=== PATIENT | male | born 1945 | race Caucasian/White ===

== ENCOUNTER 2016-06-02 12:43 | Emergency (ER) | payer MEDICARE, BC ==
--- NOTE | 2016-06-02 13:09 | EDM.PDOC ---
ED HPI RENAL/ - General Chief Complaint: Genitourinary Problem Stated Complaint: BLOOD IN URINE Time Seen by Provider: 06/02/16 13:05 Source of Information: Reports: Patient History Limitations: Reports: No limitations - History of Present Illness INITIAL COMMENTS - FREE TEXT/NARRATIVE: History of present illness: [70-year-old male presenting today with complaints of blood in his urine, patient has been on urostomy. Patient was recently seen for acute exacerbation of his congestive heart failure denies problems with that at this time.] Review of systems: As per history of present illness and below otherwise all systems reviewed and negative. Past medical history: As per history of present illness and as reviewed below otherwise noncontributory. Surgical history: As per history of present illness and as reviewed below otherwise noncontributory. Social history: No reported history of drug or alcohol abuse. Family history: As per history of present illness and as reviewed below otherwise noncontributory. Physical exam: HEENT: Atraumatic, normocephalic, pupils reactive, negative for conjunctival pallor or scleral icterus, mucous membranes moist, throat clear, neck supple, nontender, trachea midline. Lungs: Clear to auscultation, breath sounds equal bilaterally, chest nontender. Heart: S1S2, regular, negative for clicks, rubs, or JVD. Abdomen: Soft, nondistended, nontender. Negative for masses or hepatosplenomegaly. Negative for costovertebral tenderness. Pelvis: Stable nontender. Genitourinary: Deferred. Patient has any known urostomy. Rectal: Deferred. Extremities: Atraumatic, negative for cords or calf pain. Neurovascular unremarkable. Neuro: Awake, alert, oriented. Cranial nerves II through XII unremarkable. Cerebellum unremarkable. Motor and sensory unremarkable throughout. Exam nonfocal. Patient with history of known urostomy presenting with obvious hematuria Diagnostics: [UA, CBC, CMP, BNP] Therapeutics: [] Impression: [UTI] Plan: [] Definitive disposition and diagnosis as appropriate pending reevaluation and review of above. - Related Data Allergies/ADRs: Allergies Allergy/AdvReac Type Severity Reaction Status Date / Time lisinopril Allergy Cough Verified 06/02/16 13:05 green hendrix peppers Allergy Vomiting Uncoded 06/02/16 13:05 Home Meds: Home Meds Allopurinol [Zyloprim] 100 mg PO BID 02/15/16 [History] Bumetanide 2 mg PO QID 02/15/16 [History] Calcitriol [Rocaltrol] 0.25 mcg PO DAILY 02/15/16 [History] Carvedilol 50 mg PO BID 02/15/16 [History] Cyanocobalamin (Vitamin B-12) [B-12] 1,000 mcg PO DAILY 02/15/16 [History] Diltiazem [Cardizem CD] 120 mg PO BEDTIME 02/15/16 [History] Ferrous Sulfate 325 mg PO BID 02/15/16 [History] Insulin Aspart [Novolog Flexpen] 15 unit SQ ACLUNCH 02/15/16 [History] Insulin Aspart [Novolog Flexpen] 20 unit SQ ACDINNER 02/15/16 [History] Insulin Glarg,Human.Rec.Analog [Lantus Solostar] 40 unit SUBCUT BEDTIME [History] [place]-3/DHA/Epa/Fish Oil [[place]-3 Fish Oil 1,000 MG Sfgl] 1,000 mg PO ASDIRECTED 02/15/16 [History] Simvastatin [Zocor] 20 mg PO BEDTIME 02/15/16 [History] Insulin Aspart [Novolog Flexpen] 18 units SUBCUT ACBREAKFAST 05/26/16 [History] Potassium Chloride [Klor-Con M20] 10 meq PO DAILY 05/26/16 [History] Warfarin [Coumadin] 2 mg PO MOWEFR@1400 05/26/16 [History] Warfarin [Coumadin] 3 mg PO SUTUTHSA@1400 05/26/16 [History] Nitrofurantoin Monohyd/M-Cryst [Macrobid 100 mg Capsule] 100 mg PO BID #20 capsule 06/02/16 [Rx] Omeprazole Magnesium [Prilosec Otc] 20 mg PO ACBREAKFAST 06/02/16 [History] Past Medical History - Past Health History Medical/Surgical History: Denies Medical/Surgical History HEENT History: Reports: Other (see below) Other HEENT History: corrective glasses Cardiovascular History: Reports: Afib, Heart Failure, High cholesterol, Hypertension Respiratory History: Reports: None Gastrointestinal History: Reports: Hiatal hernia Genitourinary History: Reports: Urostomy Musculoskeletal History: Reports: Arthritis, Gout Neurological History: Reports: CVA. Denies: Alzheimers disease Psychiatric History: Reports: None Endocrine/Metabolic History: Reports: Diabetes, type II, Obesity/BMI 30+ Oncologic (Cancer) History: Reports: Bladder Dermatologic History: Reports: Cellulitis - Infectious Disease History Infectious Disease History: Reports: Chicken pox, Measles, Mumps, Shingles - Past Surgical History Cardiovascular Surgical History: Reports: None GI Surgical History: Reports: None Male Surgical History: Reports: Other (see below) Other Male Surgeries/Procedures: bladder removal/ urostomy- 2011 Endocrine Surgical History: Reports: None Musculoskeletal Surgical History: Reports: None Social & Family History - Family History Family Medical History: Noncontributory HEENT: Reports: Cataract Cardiac: Reports: High cholesterol, Hypertension Musculoskeletal: Reports: Arthritis Psychiatric: Reports: Depression Oncologic: Reports: Prostate - Tobacco Use Smoking Status *Q: Former Smoker Years of Tobacco use: 15 Packs/Tins Daily: 1.5 Used Tobacco, but Quit: No Month Tobacco Last Used: 1975 Second Hand Smoke Exposure: No - Caffeine Use Caffeine Use: Reports: Coffee, Soda Caffeine Use Comment: soda- occassionally - Alcohol Use Days Per Week of Alcohol Use: 6 Number of Drinks Per Day: 1 Total Drinks Per Week: 6 - Recreational Drug Use Recreational Drug Use: No ED ROS GENERAL - Review of Systems Review Of Systems: See Below (See history of present illness) ED EXAM, RENAL/ - Physical Exam Exam: See Below (History of present illness) Course - Vital Signs Last Recorded V/S: Last Vital Signs Temp 36.2 C 06/02/16 13:05 Pulse 88 06/02/16 13:05 Resp 26 H 06/02/16 13:05 BP 131/58 L 06/02/16 13:05 Pulse Ox 92 L 06/02/16 13:05 - Orders/Labs/Meds Labs: Laboratory Tests 06/02/16 06/02/16 06/02/16 Range/Units 13:31 13:31 13:31 WBC 7.14 (4.0-11.0) K/uL RBC 3.75 L (4.50-5.90) M/uL Hgb 12.1 L (13.0-17.0) g/dL Hct 37.2 L (38.0-50.0) % MCV 99.2 H (80.0-98.0) fL MCH 32.3 H (27.0-32.0) pg MCHC 32.5 (31.0-37.0) g/dL RDW Std Deviation 62.0 (28.0-62.0) fl RDW Coeff of William 17 H (11.0-15.0) % Plt Count 91 L (150-400) K/uL MPV 12.50 H (7.40-12.00) fL Neut % (Auto) 83.9 H (48.0-80.0) % Lymph % (Auto) 6.0 L (16.0-40.0) % [place] % (Auto) 7.6 (0.0-15.0) % Eos % (Auto) 2.1 (0.0-7.0) % Baso % (Auto) 0.4 (0.0-1.5) % Neut # 6.0 H (1.4-5.7) K/uL Lymph # 0.4 L (0.6-2.4) K/uL [place] # 0.5 (0.0-0.8) K/uL Eos # 0.2 (0.0-0.7) K/uL Baso # 0.0 (0.0-0.1) K/uL Nucleated RBC % 0.0 /100WBC Nucleated RBCs # 0 K/uL Sodium 143 (136-146) mmol/L Potassium 3.8 (3.5-5.1) mmol/L Chloride 102 (98-110) mmol/L Carbon Dioxide 28 (21-31) mmol/L BUN 52 H (6.0-23.0) mg/dL Creatinine 2.6 H (0.6-1.5) mg/dL Est Cr Clr Drug Dosing 26.97 mL/min Estimated GFR (MDRD) 24.5 ml/min Glucose 338 H (60-110) mg/dL Calcium 9.5 (8.8-10.8) mg/dL Total Bilirubin 1.0 (0.1-1.5) mg/dL AST 24 (5-40) IU/L ALT 24 (8-54) IU/L Alkaline Phosphatase 241 H (40-150) B-Natriuretic Peptide 402 H (<100) PG/ML Total Protein 6.6 (6.0-8.0) g/dL Albumin 4.0 (3.4-4.8) g/dL Globulin 2.6 (2.0-3.5) g/dL Albumin/Globulin Ratio 1.5 (1.3-2.8) Urine Color Urine Appearance Urine pH (5.0-8.0) Ur Specific [place] (1.001-1.035) Urine Protein (NEGATIVE) mg/dL Urine Glucose (UA) (NEGATIVE) mg/dL Urine Ketones (NEGATIVE) mg/dL Urine Occult Blood (NEGATIVE) Urine Nitrite (NEGATIVE) Urine Bilirubin (NEGATIVE) Urine Urobilinogen (<2.0) EU/dL Ur Leukocyte Esterase (NEGATIVE) Urine RBC (0-2/HPF) Urine WBC (0-5/HPF) Ur Epithelial Cells (NONE-FEW) Urine Bacteria (NEGATIVE) Hyaline Casts (0-2/LPF) 06/02/16 Range/Units 14:40 WBC (4.0-11.0) K/uL RBC (4.50-5.90) M/uL Hgb (13.0-17.0) g/dL Hct (38.0-50.0) % MCV (80.0-98.0) fL MCH (27.0-32.0) pg MCHC (31.0-37.0) g/dL RDW Std Deviation (28.0-62.0) fl RDW Coeff of William (11.0-15.0) % Plt Count (150-400) K/uL MPV (7.40-12.00) fL Neut % (Auto) (48.0-80.0) % Lymph % (Auto) (16.0-40.0) % [place] % (Auto) (0.0-15.0) % Eos % (Auto) (0.0-7.0) % Baso % (Auto) (0.0-1.5) % Neut # (1.4-5.7) K/uL Lymph # (0.6-2.4) K/uL [place] # (0.0-0.8) K/uL Eos # (0.0-0.7) K/uL Baso # (0.0-0.1) K/uL Nucleated RBC % /100WBC Nucleated RBCs # K/uL Sodium (136-146) mmol/L Potassium (3.5-5.1) mmol/L Chloride (98-110) mmol/L Carbon Dioxide (21-31) mmol/L BUN (6.0-23.0) mg/dL Creatinine (0.6-1.5) mg/dL Est Cr Clr Drug Dosing mL/min Estimated GFR (MDRD) ml/min Glucose (60-110) mg/dL Calcium (8.8-10.8) mg/dL Total Bilirubin (0.1-1.5) mg/dL AST (5-40) IU/L ALT (8-54) IU/L Alkaline Phosphatase (40-150) B-Natriuretic Peptide (<100) PG/ML Total Protein (6.0-8.0) g/dL Albumin (3.4-4.8) g/dL Globulin (2.0-3.5) g/dL Albumin/Globulin Ratio (1.3-2.8) Urine Color YELLOW Urine Appearance CLEAR Urine pH 7.0 (5.0-8.0) Ur Specific [place] 1.010 (1.001-1.035) Urine Protein TRACE (NEGATIVE) mg/dL Urine Glucose (UA) NEGATIVE (NEGATIVE) mg/dL Urine Ketones NEGATIVE (NEGATIVE) mg/dL Urine Occult Blood LARGE H (NEGATIVE) Urine Nitrite NEGATIVE (NEGATIVE) Urine Bilirubin NEGATIVE (NEGATIVE) Urine Urobilinogen 0.2 (<2.0) EU/dL Ur Leukocyte Esterase LARGE (NEGATIVE) Urine RBC TOO NUMBEROUS TO CT (0-2/HPF) Urine WBC 10-15 (0-5/HPF) Ur Epithelial Cells RARE (NONE-FEW) Urine Bacteria 1+ H (NEGATIVE) Hyaline Casts 2-4 (0-2/LPF) Departure - Departure Time of Disposition: 15:17 Disposition: Home, Self-Care 01 Condition: good Clinical Impression: UTI, Urinary tract infectious disease Forms: ED Department Discharge Additional Instructions: The following information is given to patients seen in the emergency department who are being discharged to home. This information is to outline your options for follow-up care. We provide all patients seen in our emergency department with a follow-up referral. The need for follow-up, as well as the timing and circumstances, are variable depending upon the specifics of your emergency department visit. If you don't have a primary care physician on staff, we will provide you with a referral. We always advise you to contact your personal physician following an emergency department visit to inform them of the circumstance of the visit and for follow-up with them and/or the need for any referrals to a consulting specialist. The emergency department will also refer you to a specialist when appropriate. This referral assures that you have the opportunity for follow-up care with a specialist. All of these measure are taken in an effort to provide you with optimal care, which includes your follow-up. Under all circumstances we always encourage you to contact your private physician who remains a resource for coordinating your care. When calling for follow-up care, please make the office aware that this follow-up is from your recent emergency room visit. If for any reason you are refused follow-up, please contact the [facility] Emergency Department at and asked to speak to the emergency department charge nurse. UTI is present as suspected Been prescribed some antibiotics please followup with your primary care provider and/or your urologist Return to ED as needed and discussed
[2016-06-02 15:28] VITALS: BP 142/86
== END 2016-06-02 15:26 | disposition home or self-care (01) ==
LOC: MW.ED 12:43
DX: N39.0 Urinary tract infection, site not specified (principal); E78.00 Pure hypercholesterolemia, unspecified; I48.91 Unspecified atrial fibrillation; M19.90 Unspecified osteoarthritis, unspecified site; E11.9 Type 2 diabetes mellitus without complications; E66.9 Obesity, unspecified; Z88.6 Allergy status to analgesic agent; Z88.8 Allergy status to other drugs, medicaments and biological substances; Z79.899 Other long term (current) drug therapy; Z68.30 Body mass index [BMI] 30.0-30.9, adult; Z86.73 Personal history of transient ischemic attack (TIA), and cerebral infarction without residual deficits; Z87.891 Personal history of nicotine dependence; I50.9 Heart failure, unspecified
CPT/HCPCS: 36415; 80053; 81001; 83880; 85025; 99283

== ENCOUNTER 2016-07-01 12:54 | Inpatient (IN) | payer MEDICARE, BC ==
[2016-07-01] MEDS ORDERED: Sodium Chloride 0.9% 1,000 ML IV ONE ×2 (13:25→14:50)
[2016-07-01] MEDS ORDERED: Acetaminophen 325 MG Tab PO ONE (13:47)
--- NOTE | 2016-07-01 14:33 | EDM.PDOC ---
ED HPI GENERAL MEDICAL PROBLEM - General Chief Complaint: Back Pain or Injury Stated Complaint: IN PAINS Time Seen by Provider: 07/01/16 13:20 Source of Information: Reports: Patient, Family History Limitations: Reports: No limitations - History of Present Illness INITIAL COMMENTS - FREE TEXT/NARRATIVE: History of present illness: [70-year-old male returns with concerns of fever, and feeling well, as well as some general pain. Patient was positive for a UTI and treated.] Review of systems: As per history of present illness and below otherwise all systems reviewed and negative. Past medical history: As per history of present illness and as reviewed below otherwise noncontributory. Surgical history: As per history of present illness and as reviewed below otherwise noncontributory. Social history: No reported history of drug or alcohol abuse. Family history: As per history of present illness and as reviewed below otherwise noncontributory. Physical exam: HEENT: Atraumatic, normocephalic, pupils reactive, negative for conjunctival pallor or scleral icterus, mucous membranes moist, throat clear, neck supple, nontender, trachea midline. Lungs: Clear to auscultation, breath sounds equal bilaterally, chest nontender. Heart: S1S2, regular, negative for clicks, rubs, or JVD. Abdomen: Soft, nondistended, nontender. Negative for masses or hepatosplenomegaly. Negative for costovertebral tenderness. Pelvis: Stable nontender. Genitourinary: Deferred. Rectal: Deferred. Extremities: Atraumatic, negative for cords or calf pain. Neurovascular unremarkable. Neuro: Awake, alert, oriented. Cranial nerves II through XII unremarkable. Cerebellum unremarkable. Motor and sensory unremarkable throughout. Exam nonfocal. Patient presents alert, pleasant, and cooperative but clearly feels slightly unwell without looking toxic. Patient responding to fluid resuscitation, and IV antibiotics well while in ED. Discussed case with Dr. Jeter - hospitalist who has agreed to accept patient into the ICU/inpatient status. Critical care time of 40 minutes inclusive of medical management as well as review of previous medical records. Diagnostics: [CBC, CMP, troponin, magnesium, chest x-ray, EKG, blood cultures, UA] Therapeutics: [] Impression: [ urosepsis] Plan: [To ICU pending bed opening] Definitive disposition and diagnosis as appropriate pending reevaluation and review of above. neck Pain Score (Numeric/FACES): 7 flank Pain Score (Numeric/FACES): 7 - Related Data Allergies Allergy/AdvReac Type Severity Reaction Status Date / Time lisinopril Allergy Cough Verified 07/01/16 13:07 green hendrix peppers Allergy Vomiting Uncoded 07/01/16 13:07 Home Meds: Home Meds Allopurinol [Zyloprim] 100 mg PO BID 07/01/16 [History] Bumetanide 2 mg PO BID 07/01/16 [History] Calcitriol [Rocaltrol] 0.25 mcg PO DAILY 07/01/16 [History] Carvedilol 50 mg PO DAILY 07/01/16 [History] Ferrous Sulfate [Iron] 325 mg PO BID 07/01/16 [History] Insulin Aspart [NovoLOG] 15 unit SUBCUT ACLUNCH 07/01/16 [History] Insulin Aspart [NovoLOG] 20 unit SUBCUT ACDINNER 07/01/16 [History] Insulin Aspart [Novolog] 18 unit SQ ACBREAKFAST 07/01/16 [History] Insulin Glarg,Human.Rec.Analog [LantUS] See Protocol SUBCUT DAILY 07/01/16 [ History] Metolazone 1 tab PO WEEKLY 07/01/16 [History] [place]-3/DHA/Epa/Fish Oil [Fish Oil 1,000 mg Softgel] 2 cap PO DAILY 07/01/16 [ History] Omeprazole Magnesium [Prilosec Otc] 20 mg PO ACBREAKFAST 07/01/16 [History] Potassium Chloride 0.5 tab PO DAILY 07/01/16 [History] Simvastatin [Zocor] 0.5 tab PO DAILY 07/01/16 [History] Warfarin [Coumadin] 2 mg PO DAILY 07/01/16 [History] Warfarin [Coumadin] 3 mg PO DAILY 07/01/16 [History] Past Medical History - Past Health History Medical/Surgical History: Denies Medical/Surgical History HEENT History: Reports: Other (see below) Other HEENT History: corrective glasses Cardiovascular History: Reports: Afib, Heart Failure, High cholesterol, Hypertension Respiratory History: Reports: None Gastrointestinal History: Reports: Hiatal hernia Genitourinary History: Reports: Urostomy Musculoskeletal History: Reports: Arthritis, Gout Neurological History: Reports: CVA Psychiatric History: Reports: None Endocrine/Metabolic History: Reports: Diabetes, type II, Obesity/BMI 30+ Oncologic (Cancer) History: Reports: Bladder Dermatologic History: Reports: Cellulitis - Infectious Disease History Infectious Disease History: Reports: Chicken pox, Measles, Mumps, Shingles - Past Surgical History Cardiovascular Surgical History: Reports: None GI Surgical History: Reports: None Male Surgical History: Reports: Other (see below) Other Male Surgeries/Procedures: bladder removal/ urostomy- 2011 Endocrine Surgical History: Reports: None Musculoskeletal Surgical History: Reports: None Social & Family History - Family History Family Medical History: Noncontributory HEENT: Reports: Cataract Cardiac: Reports: High cholesterol, Hypertension Musculoskeletal: Reports: Arthritis Psychiatric: Reports: Depression Oncologic: Reports: Prostate - Tobacco Use Smoking Status *Q: Never Smoker Years of Tobacco use: 15 Packs/Tins Daily: 1.5 Used Tobacco, but Quit: No Month Tobacco Last Used: 1975 Second Hand Smoke Exposure: No - Caffeine Use Caffeine Use: Reports: Coffee, Soda Caffeine Use Comment: soda- occassionally - Alcohol Use Days Per Week of Alcohol Use: 2 Number of Drinks Per Day: 2 Total Drinks Per Week: 4 - Recreational Drug Use Recreational Drug Use: No Drug Use in Last 12 Months: No ED ROS GENERAL - Review of Systems Review Of Systems: See Below (The history of present illness) ED EXAM, GENERAL - Physical Exam Exam: See Below (See history of present illness) Course - Vital Signs Last Recorded V/S: Last Vital Signs Temp 37.5 C 07/01/16 15:19 Pulse 150 H 07/01/16 13:07 Resp 34 H 07/01/16 15:19 BP 101/64 07/01/16 15:19 Pulse Ox 94 L 07/01/16 15:19 - Orders/Labs/Meds Orders: Active Orders 24 hr Category Date Time Status EKG 12 Lead [EKG Documentation Completion] [RC] STAT Care 07/01/16 13:14 Active Chest 2V [CR] Stat Exams 07/01/16 13:25 Taken CULTURE BLOOD [BC] Stat Lab 07/01/16 13:37 Received CULTURE BLOOD [BC] Stat Lab 07/01/16 13:45 Received CULTURE URINE [RM] Stat Lab 07/01/16 13:41 Received Piperacillin/Tazobactam [Piperacil-Tazobact] 4.5 gm Med 07/01/16 15:00 Ordered Sodium Chloride 0.9% [Normal Saline] 100 ml IV ONETIME Sodium Chloride 0.9% [Normal Saline] 1,000 ml Med 07/01/16 14:50 Active IV STAT Blood Culture x2 Reflex Set [OM.PC] Stat Oth 07/01/16 13:34 Ordered Medication Orders Piperacillin Sod/Tazobactam (Sod 4.5 gm/ Sodium Chloride) 100 mls @ 100 mls/hr IV ONETIME ONE Stop: 07/01/16 15:59 Last Admin: 07/01/16 15:13 Dose: 100 mls/hr Labs: Laboratory Tests 07/01/16 07/01/16 07/01/16 Range/Units 13:37 13:37 13:37 WBC 20.54 H (4.0-11.0) K/uL RBC 3.52 L (4.50-5.90) M/uL Hgb 11.2 L (13.0-17.0) g/dL Hct 33.8 L (38.0-50.0) % MCV 96.0 (80.0-98.0) fL MCH 31.8 (27.0-32.0) pg MCHC 33.1 (31.0-37.0) g/dL RDW Std Deviation 58.4 (28.0-62.0) fl RDW Coeff of William 17 H (11.0-15.0) % Plt Count 110 L (150-400) K/uL MPV 10.90 (7.40-12.00) fL Add Manual Diff YES Neutrophils % (Manual) 66 (48.0-80.0) % Band Neutrophils % 21 % Lymphocytes % (Manual) 6 L (16.0-40.0) % Monocytes % (Manual) 5 (0.0-15.0) % Eosinophils % (Manual) 1 (0.0-7.0) % Basophils % (Manual) 1 (0.0-1.5) % Nucleated RBC % 0.0 /100WBC Absolute Seg Neuts 13.6 Band Neutrophils # 4.3 Lymphocytes # (Manual) 1.2 Monocytes # (Manual) 1.0 Eosinophils # (Manual) 0.2 Basophils # (Manual) 0 Nucleated RBCs # 0 K/uL INR 1.76 H (0.86-1.11) Lactate (0.20-2.00) mmol/L Sodium 136 (136-146) mmol/L Potassium 3.6 (3.5-5.1) mmol/L Chloride 95 L (98-110) mmol/L Carbon Dioxide 32 H (21-31) mmol/L BUN 68 H (6.0-23.0) mg/dL Creatinine 3.4 H (0.6-1.5) mg/dL Est Cr Clr Drug Dosing 20.58 mL/min Estimated GFR (MDRD) 17.9 ml/min Glucose 255 H (60-110) mg/dL Calcium 8.9 (8.8-10.8) mg/dL Magnesium (1.5-2.3) mEq/L Total Bilirubin 1.8 H (0.1-1.5) mg/dL AST 34 (5-40) IU/L ALT 19 (8-54) IU/L Alkaline Phosphatase 272 H (40-150) Troponin I (0.0-0.29) NG/ML Total Protein 6.5 (6.0-8.0) g/dL Albumin 3.5 (3.4-4.8) g/dL Globulin 3.0 (2.0-3.5) g/dL Albumin/Globulin Ratio 1.2 L (1.3-2.8) Amylase 32 (10-90) U/L Lipase 30 (7-80) U/L Urine Color Urine Appearance Urine pH (5.0-8.0) Ur Specific [place] (1.001-1.035) Urine Protein (NEGATIVE) mg/dL Urine Glucose (UA) (NEGATIVE) mg/dL Urine Ketones (NEGATIVE) mg/dL Urine Occult Blood (NEGATIVE) Urine Nitrite (NEGATIVE) Urine Bilirubin (NEGATIVE) Urine Urobilinogen (<2.0) EU/dL Ur Leukocyte Esterase (NEGATIVE) Urine RBC (0-2/HPF) Urine WBC (0-5/HPF) Ur Epithelial Cells (NONE-FEW) Amorphous Sediment (NEGATIVE) Urine Bacteria (NEGATIVE) Urine Mucus (NONE-MOD) 07/01/16 07/01/16 07/01/16 Range/Units 13:37 13:37 13:37 WBC (4.0-11.0) K/uL RBC (4.50-5.90) M/uL Hgb (13.0-17.0) g/dL Hct (38.0-50.0) % MCV (80.0-98.0) fL MCH (27.0-32.0) pg MCHC (31.0-37.0) g/dL RDW Std Deviation (28.0-62.0) fl RDW Coeff of William (11.0-15.0) % Plt Count (150-400) K/uL MPV (7.40-12.00) fL Add Manual Diff Neutrophils % (Manual) (48.0-80.0) % Band Neutrophils % % Lymphocytes % (Manual) (16.0-40.0) % Monocytes % (Manual) (0.0-15.0) % Eosinophils % (Manual) (0.0-7.0) % Basophils % (Manual) (0.0-1.5) % Nucleated RBC % /100WBC Absolute Seg Neuts Band Neutrophils # Lymphocytes # (Manual) Monocytes # (Manual) Eosinophils # (Manual) Basophils # (Manual) Nucleated RBCs # K/uL INR (0.86-1.11) Lactate 2.0 (0.20-2.00) mmol/L Sodium (136-146) mmol/L Potassium (3.5-5.1) mmol/L Chloride (98-110) mmol/L Carbon Dioxide (21-31) mmol/L BUN (6.0-23.0) mg/dL Creatinine (0.6-1.5) mg/dL Est Cr Clr Drug Dosing mL/min Estimated GFR (MDRD) ml/min Glucose (60-110) mg/dL Calcium (8.8-10.8) mg/dL Magnesium 1.5 (1.5-2.3) mEq/L Total Bilirubin (0.1-1.5) mg/dL AST (5-40) IU/L ALT (8-54) IU/L Alkaline Phosphatase (40-150) Troponin I < 0.10 (0.0-0.29) NG/ML Total Protein (6.0-8.0) g/dL Albumin (3.4-4.8) g/dL Globulin (2.0-3.5) g/dL Albumin/Globulin Ratio (1.3-2.8) Amylase (10-90) U/L Lipase (7-80) U/L Urine Color Urine Appearance Urine pH (5.0-8.0) Ur Specific [place] (1.001-1.035) Urine Protein (NEGATIVE) mg/dL Urine Glucose (UA) (NEGATIVE) mg/dL Urine Ketones (NEGATIVE) mg/dL Urine Occult Blood (NEGATIVE) Urine Nitrite (NEGATIVE) Urine Bilirubin (NEGATIVE) Urine Urobilinogen (<2.0) EU/dL Ur Leukocyte Esterase (NEGATIVE) Urine RBC (0-2/HPF) Urine WBC (0-5/HPF) Ur Epithelial Cells (NONE-FEW) Amorphous Sediment (NEGATIVE) Urine Bacteria (NEGATIVE) Urine Mucus (NONE-MOD) 07/01/16 Range/Units 13:41 WBC (4.0-11.0) K/uL RBC (4.50-5.90) M/uL Hgb (13.0-17.0) g/dL Hct (38.0-50.0) % MCV (80.0-98.0) fL MCH (27.0-32.0) pg MCHC (31.0-37.0) g/dL RDW Std Deviation (28.0-62.0) fl RDW Coeff of William (11.0-15.0) % Plt Count (150-400) K/uL MPV (7.40-12.00) fL Add Manual Diff Neutrophils % (Manual) (48.0-80.0) % Band Neutrophils % % Lymphocytes % (Manual) (16.0-40.0) % Monocytes % (Manual) (0.0-15.0) % Eosinophils % (Manual) (0.0-7.0) % Basophils % (Manual) (0.0-1.5) % Nucleated RBC % /100WBC Absolute Seg Neuts Band Neutrophils # Lymphocytes # (Manual) Monocytes # (Manual) Eosinophils # (Manual) Basophils # (Manual) Nucleated RBCs # K/uL INR (0.86-1.11) Lactate (0.20-2.00) mmol/L Sodium (136-146) mmol/L Potassium (3.5-5.1) mmol/L Chloride (98-110) mmol/L Carbon Dioxide (21-31) mmol/L BUN (6.0-23.0) mg/dL Creatinine (0.6-1.5) mg/dL Est Cr Clr Drug Dosing mL/min Estimated GFR (MDRD) ml/min Glucose (60-110) mg/dL Calcium (8.8-10.8) mg/dL Magnesium (1.5-2.3) mEq/L Total Bilirubin (0.1-1.5) mg/dL AST (5-40) IU/L ALT (8-54) IU/L Alkaline Phosphatase (40-150) Troponin I (0.0-0.29) NG/ML Total Protein (6.0-8.0) g/dL Albumin (3.4-4.8) g/dL Globulin (2.0-3.5) g/dL Albumin/Globulin Ratio (1.3-2.8) Amylase (10-90) U/L Lipase (7-80) U/L Urine Color [place] Urine Appearance CLOUDY Urine pH 8.5 H (5.0-8.0) Ur Specific [place] 1.015 (1.001-1.035) Urine Protein 100 (NEGATIVE) mg/dL Urine Glucose (UA) NEGATIVE (NEGATIVE) mg/dL Urine Ketones NEGATIVE (NEGATIVE) mg/dL Urine Occult Blood LARGE H (NEGATIVE) Urine Nitrite NEGATIVE (NEGATIVE) Urine Bilirubin NEGATIVE (NEGATIVE) Urine Urobilinogen 0.2 (<2.0) EU/dL Ur Leukocyte Esterase MODERATE (NEGATIVE) Urine RBC 45-50 (0-2/HPF) Urine WBC 18-20 (0-5/HPF) Ur Epithelial Cells FEW (NONE-FEW) Amorphous Sediment MODERATE (NEGATIVE) Urine Bacteria 2+ H (NEGATIVE) Urine Mucus LIGHT (NONE-MOD) Meds: Medications Generic Name Dose Route Start Last Admin Trade Name Freq PRN Reason Stop Dose Admin Piperacillin Sod/Tazobactam 100 mls @ 100 mls/hr 07/01/16 15:00 07/01/16 15: 13 Sod 4.5 gm/ Sodium Chloride IV 07/01/16 15:59 100 mls/hr ONETIME ONE Administration Discontinued Medications Generic Name Dose Route Start Last Admin Trade Name Freq PRN Reason Stop Dose Admin Acetaminophen 650 mg 07/01/16 13:47 07/01/16 13:51 Tylenol PO 07/01/16 13:48 650 mg NOW ONE Administration Sodium Chloride 1,000 mls @ 999 mls/hr 07/01/16 13:25 07/01/16 13:28 Normal Saline IV 07/01/16 14:25 999 mls/hr .Bolus ONE Administration Sodium Chloride 1,000 mls @ 999 mls/hr 07/01/16 14:50 07/01/16 14:53 Normal Saline IV 07/01/16 15:50 999 mls/hr STAT ONE Administration Departure - Departure Time of Disposition: 15:51 Disposition: Home, Self-Care 01 Condition: good Clinical Impression: UTI, Urinary tract infectious disease, Bacteremia, High fever Forms: ED Department Discharge - My Orders Last 24 Hours: My Active Orders 07/01/16 13:14 EKG 12 Lead [EKG Documentation Completion] [RC] STAT 07/01/16 13:25 Chest 2V [CR] Stat 07/01/16 14:50 Sodium Chloride 0.9% [Normal Saline] 1,000 ml IV STAT 07/01/16 15:00 Piperacillin/Tazobactam [Piperacil-Tazobact] 4.5 gm Sodium Chloride 0.9% [ Normal Saline] 100 ml IV ONETIME - Assessment/Plan Last 24 Hours: My Active Orders 07/01/16 13:14 EKG 12 Lead [EKG Documentation Completion] [RC] STAT 07/01/16 13:25 Chest 2V [CR] Stat 07/01/16 14:50 Sodium Chloride 0.9% [Normal Saline] 1,000 ml IV STAT 07/01/16 15:00 Piperacillin/Tazobactam [Piperacil-Tazobact] 4.5 gm Sodium Chloride 0.9% [ Normal Saline] 100 ml IV ONETIME
[2016-07-01] MEDS ORDERED: Piperacillin/Tazobactam 4.5 GM in Sodium Chloride 0.9% 100 ML IV ONE (15:00)
--- NOTE | 2016-07-01 16:54 | PCM.HP ---
H&P History of Present Illness - General Date of Service: 07/01/16 Admit Problem/Dx: Admission Diagnosis/Problem Admission Diagnosis/Problem Sepsis due to urinary tract infection Source of Information: Patient, Family, Old records, Provider, RN - History of Present Illness Initial Comments - Free Text/Narative: He presented to the ED today with complaint of fever, chills, malaise and generalized weakness. He was noted to have an elevated serum creatinine and elevated WBC. He has had a urostomy x four years after surgery for a bladder cancer. He was diagnosed with urosepsis whilst in the ED. Metalozone was recently added to his medical regimen. His outpatient attending physician is Dr. Cash. neck Pain Score (Numeric/FACES): 7 flank Pain Score (Numeric/FACES): 7 - Related Data Allergies/Adverse Reactions: Allergies Allergy/AdvReac Type Severity Reaction Status Date / Time lisinopril Allergy Cough Verified 07/01/16 13:07 green hendrix peppers Allergy Vomiting Uncoded 07/01/16 13:07 Home Medications: Home Meds Allopurinol [Zyloprim] 100 mg PO BID 07/01/16 [History] Bumetanide 2 mg PO BID 07/01/16 [History] Calcitriol [Rocaltrol] 0.25 mcg PO DAILY 07/01/16 [History] Carvedilol 50 mg PO DAILY 07/01/16 [History] Ferrous Sulfate [Iron] 325 mg PO BID 07/01/16 [History] Insulin Aspart [NovoLOG] 15 unit SUBCUT ACLUNCH 07/01/16 [History] Insulin Aspart [NovoLOG] 20 unit SUBCUT ACDINNER 07/01/16 [History] Insulin Aspart [Novolog] 18 unit SQ ACBREAKFAST 07/01/16 [History] Insulin Glarg,Human.Rec.Analog [LantUS] See Protocol SUBCUT DAILY 07/01/16 [ History] Metolazone 1 tab PO WEEKLY 07/01/16 [History] [place]-3/DHA/Epa/Fish Oil [Fish Oil 1,000 mg Softgel] 2 cap PO DAILY 07/01/16 [ History] Omeprazole Magnesium [Prilosec Otc] 20 mg PO ACBREAKFAST 07/01/16 [History] Potassium Chloride 0.5 tab PO DAILY 07/01/16 [History] Simvastatin [Zocor] 0.5 tab PO DAILY 07/01/16 [History] Warfarin [Coumadin] 2 mg PO DAILY 07/01/16 [History] Warfarin [Coumadin] 3 mg PO DAILY 07/01/16 [History] Past Medical History - Past Health History Medical/Surgical History: Denies Medical/Surgical History HEENT History: Reports: Other (see below) Other HEENT History: corrective glasses Cardiovascular History: Reports: Afib, Heart Failure, High cholesterol, Hypertension Respiratory History: Reports: None Gastrointestinal History: Reports: Hiatal hernia, Other (see below) (prior history of GI bleeding while on anticoagulation in 2016.). Denies: Cirrhosis Genitourinary History: Reports: Urostomy, Other (see below) (history of urinary tract cancer) Musculoskeletal History: Reports: Arthritis, Gout Neurological History: Reports: CVA Psychiatric History: Reports: None Endocrine/Metabolic History: Reports: Diabetes, type II, Obesity/BMI 30+ Oncologic (Cancer) History: Reports: Bladder Dermatologic History: Reports: Cellulitis - Infectious Disease History Infectious Disease History: Reports: Chicken pox, Measles, Mumps, Shingles - Past Surgical History Cardiovascular Surgical History: Reports: None GI Surgical History: Reports: None Male Surgical History: Reports: Other (see below) Other Male Surgeries/Procedures: bladder removal/ urostomy- 2011 Endocrine Surgical History: Reports: None Musculoskeletal Surgical History: Reports: None Social & Family History - Family History Family Medical History: Noncontributory HEENT: Reports: Cataract Cardiac: Reports: High cholesterol, Hypertension Musculoskeletal: Reports: Arthritis Psychiatric: Reports: Depression Oncologic: Reports: Prostate - Tobacco Use Smoking Status *Q: Never Smoker Years of Tobacco use: 15 Packs/Tins Daily: 1.5 Used Tobacco, but Quit: No Month Tobacco Last Used: 1975 Second Hand Smoke Exposure: No - Caffeine Use Caffeine Use: Reports: Coffee, Soda Caffeine Use Comment: soda- occassionally - Alcohol Use Days Per Week of Alcohol Use: 2 Number of Drinks Per Day: 2 Total Drinks Per Week: 4 - Recreational Drug Use Recreational Drug Use: No Drug Use in Last 12 Months: No H&P Review of Systems - Review of Systems: Review Of Systems: See Below General: Reports: fever, chills HEENT: Denies: headaches Pulmonary: Denies: shortness of breath, cough, sputum Cardiovascular: Reports: edema (chronic). Denies: chest pain, palpitations Gastrointestinal: Denies: Abdominal pain, Anorexia, Black stool, Hematemesis, Hematochezia Genitourinary: Reports: other (urostomy bag). Denies: dysuria, hematuria Skin: Denies: cyanosis Psychiatric: Denies: confusion Exam - Exam Exam: See Below - Vital Signs Vital Signs: Last Vital Signs Temp 99.5 F 07/01/16 15:19 Pulse 150 H 07/01/16 13:07 Resp 34 H 07/01/16 15:19 BP 101/64 07/01/16 15:19 Pulse Ox 94 L 07/01/16 15:19 Weight: 112.037 kg - Exam General: alert, oriented HEENT: EOMI, Mucosa moist & pink Neck: supple, trachea midline Lungs: Clear to auscultation, Normal respiratory effort Cardiovascular: irregular rhythm Abdomen: soft, other (urostomy bag noted. ). No: tenderness Rectal (Males) Exam: Deferred Extremities: edema (3 plus LE edema; pigmentary changes c/w chronic venous stasis. ) Neurological: cranial nerves intact, normal speech Neuro Extensive - Mental Status: normal mood/affect Neuro Extensive - Motor, Sensory, Reflexes: No: facial palsy (L), facial palsy ( R), hemiplagia (L) Psychiatric: normal affect. No: agitated - Patient Data Lab Results last 24 hrs: Laboratory Results - last 24 hr 07/01/16 07/01/16 07/01/16 Range/Units 13:37 13:37 13:37 WBC 20.54 H (4.0-11.0) K/uL RBC 3.52 L (4.50-5.90) M/uL Hgb 11.2 L (13.0-17.0) g/dL Hct 33.8 L (38.0-50.0) % MCV 96.0 (80.0-98.0) fL MCH 31.8 (27.0-32.0) pg MCHC 33.1 (31.0-37.0) g/dL RDW Std Deviation 58.4 (28.0-62.0) fl RDW Coeff of William 17 H (11.0-15.0) % Plt Count 110 L (150-400) K/uL MPV 10.90 (7.40-12.00) fL Add Manual Diff YES Neutrophils % (Manual) 66 (48.0-80.0) % Band Neutrophils % 21 % Lymphocytes % (Manual) 6 L (16.0-40.0) % Monocytes % (Manual) 5 (0.0-15.0) % Eosinophils % (Manual) 1 (0.0-7.0) % Basophils % (Manual) 1 (0.0-1.5) % Nucleated RBC % 0.0 /100WBC Absolute Seg Neuts 13.6 Band Neutrophils # 4.3 Lymphocytes # (Manual) 1.2 Monocytes # (Manual) 1.0 Eosinophils # (Manual) 0.2 Basophils # (Manual) 0 Nucleated RBCs # 0 K/uL INR 1.76 H (0.86-1.11) Lactate (0.20-2.00) mmol/L Sodium 136 (136-146) mmol/L Potassium 3.6 (3.5-5.1) mmol/L Chloride 95 L (98-110) mmol/L Carbon Dioxide 32 H (21-31) mmol/L BUN 68 H (6.0-23.0) mg/dL Creatinine 3.4 H (0.6-1.5) mg/dL Est Cr Clr Drug Dosing 20.58 mL/min Estimated GFR (MDRD) 17.9 ml/min Glucose 255 H (60-110) mg/dL Calcium 8.9 (8.8-10.8) mg/dL Magnesium (1.5-2.3) mEq/L Total Bilirubin 1.8 H (0.1-1.5) mg/dL AST 34 (5-40) IU/L ALT 19 (8-54) IU/L Alkaline Phosphatase 272 H (40-150) Troponin I (0.0-0.29) NG/ML Total Protein 6.5 (6.0-8.0) g/dL Albumin 3.5 (3.4-4.8) g/dL Globulin 3.0 (2.0-3.5) g/dL Albumin/Globulin Ratio 1.2 L (1.3-2.8) Amylase 32 (10-90) U/L Lipase 30 (7-80) U/L Urine Color Urine Appearance Urine pH (5.0-8.0) Ur Specific [place] (1.001-1.035) Urine Protein (NEGATIVE) mg/dL Urine Glucose (UA) (NEGATIVE) mg/dL Urine Ketones (NEGATIVE) mg/dL Urine Occult Blood (NEGATIVE) Urine Nitrite (NEGATIVE) Urine Bilirubin (NEGATIVE) Urine Urobilinogen (<2.0) EU/dL Ur Leukocyte Esterase (NEGATIVE) Urine RBC (0-2/HPF) Urine WBC (0-5/HPF) Ur Epithelial Cells (NONE-FEW) Amorphous Sediment (NEGATIVE) Urine Bacteria (NEGATIVE) Urine Mucus (NONE-MOD) 07/01/16 07/01/16 07/01/16 Range/Units 13:37 13:37 13:37 WBC (4.0-11.0) K/uL RBC (4.50-5.90) M/uL Hgb (13.0-17.0) g/dL Hct (38.0-50.0) % MCV (80.0-98.0) fL MCH (27.0-32.0) pg MCHC (31.0-37.0) g/dL RDW Std Deviation (28.0-62.0) fl RDW Coeff of William (11.0-15.0) % Plt Count (150-400) K/uL MPV (7.40-12.00) fL Add Manual Diff Neutrophils % (Manual) (48.0-80.0) % Band Neutrophils % % Lymphocytes % (Manual) (16.0-40.0) % Monocytes % (Manual) (0.0-15.0) % Eosinophils % (Manual) (0.0-7.0) % Basophils % (Manual) (0.0-1.5) % Nucleated RBC % /100WBC Absolute Seg Neuts Band Neutrophils # Lymphocytes # (Manual) Monocytes # (Manual) Eosinophils # (Manual) Basophils # (Manual) Nucleated RBCs # K/uL INR (0.86-1.11) Lactate 2.0 (0.20-2.00) mmol/L Sodium (136-146) mmol/L Potassium (3.5-5.1) mmol/L Chloride (98-110) mmol/L Carbon Dioxide (21-31) mmol/L BUN (6.0-23.0) mg/dL Creatinine (0.6-1.5) mg/dL Est Cr Clr Drug Dosing mL/min Estimated GFR (MDRD) ml/min Glucose (60-110) mg/dL Calcium (8.8-10.8) mg/dL Magnesium 1.5 (1.5-2.3) mEq/L Total Bilirubin (0.1-1.5) mg/dL AST (5-40) IU/L ALT (8-54) IU/L Alkaline Phosphatase (40-150) Troponin I < 0.10 (0.0-0.29) NG/ML Total Protein (6.0-8.0) g/dL Albumin (3.4-4.8) g/dL Globulin (2.0-3.5) g/dL Albumin/Globulin Ratio (1.3-2.8) Amylase (10-90) U/L Lipase (7-80) U/L Urine Color Urine Appearance Urine pH (5.0-8.0) Ur Specific [place] (1.001-1.035) Urine Protein (NEGATIVE) mg/dL Urine Glucose (UA) (NEGATIVE) mg/dL Urine Ketones (NEGATIVE) mg/dL Urine Occult Blood (NEGATIVE) Urine Nitrite (NEGATIVE) Urine Bilirubin (NEGATIVE) Urine Urobilinogen (<2.0) EU/dL Ur Leukocyte Esterase (NEGATIVE) Urine RBC (0-2/HPF) Urine WBC (0-5/HPF) Ur Epithelial Cells (NONE-FEW) Amorphous Sediment (NEGATIVE) Urine Bacteria (NEGATIVE) Urine Mucus (NONE-MOD) 07/01/16 Range/Units 13:41 WBC (4.0-11.0) K/uL RBC (4.50-5.90) M/uL Hgb (13.0-17.0) g/dL Hct (38.0-50.0) % MCV (80.0-98.0) fL MCH (27.0-32.0) pg MCHC (31.0-37.0) g/dL RDW Std Deviation (28.0-62.0) fl RDW Coeff of William (11.0-15.0) % Plt Count (150-400) K/uL MPV (7.40-12.00) fL Add Manual Diff Neutrophils % (Manual) (48.0-80.0) % Band Neutrophils % % Lymphocytes % (Manual) (16.0-40.0) % Monocytes % (Manual) (0.0-15.0) % Eosinophils % (Manual) (0.0-7.0) % Basophils % (Manual) (0.0-1.5) % Nucleated RBC % /100WBC Absolute Seg Neuts Band Neutrophils # Lymphocytes # (Manual) Monocytes # (Manual) Eosinophils # (Manual) Basophils # (Manual) Nucleated RBCs # K/uL INR (0.86-1.11) Lactate (0.20-2.00) mmol/L Sodium (136-146) mmol/L Potassium (3.5-5.1) mmol/L Chloride (98-110) mmol/L Carbon Dioxide (21-31) mmol/L BUN (6.0-23.0) mg/dL Creatinine (0.6-1.5) mg/dL Est Cr Clr Drug Dosing mL/min Estimated GFR (MDRD) ml/min Glucose (60-110) mg/dL Calcium (8.8-10.8) mg/dL Magnesium (1.5-2.3) mEq/L Total Bilirubin (0.1-1.5) mg/dL AST (5-40) IU/L ALT (8-54) IU/L Alkaline Phosphatase (40-150) Troponin I (0.0-0.29) NG/ML Total Protein (6.0-8.0) g/dL Albumin (3.4-4.8) g/dL Globulin (2.0-3.5) g/dL Albumin/Globulin Ratio (1.3-2.8) Amylase (10-90) U/L Lipase (7-80) U/L Urine Color [place] Urine Appearance CLOUDY Urine pH 8.5 H (5.0-8.0) Ur Specific [place] 1.015 (1.001-1.035) Urine Protein 100 (NEGATIVE) mg/dL Urine Glucose (UA) NEGATIVE (NEGATIVE) mg/dL Urine Ketones NEGATIVE (NEGATIVE) mg/dL Urine Occult Blood LARGE H (NEGATIVE) Urine Nitrite NEGATIVE (NEGATIVE) Urine Bilirubin NEGATIVE (NEGATIVE) Urine Urobilinogen 0.2 (<2.0) EU/dL Ur Leukocyte Esterase MODERATE (NEGATIVE) Urine RBC 45-50 (0-2/HPF) Urine WBC 18-20 (0-5/HPF) Ur Epithelial Cells FEW (NONE-FEW) Amorphous Sediment MODERATE (NEGATIVE) Urine Bacteria 2+ H (NEGATIVE) Urine Mucus LIGHT (NONE-MOD) Result Diagrams: 07/01/16 13:37 07/01/16 13:37 *Q Meaningful Use (ADM) - VTE *Q VTE Criteria *Q: - Stroke *Q Stroke Criteria *Q: - AMI *Q AMI Criteria *Q: - Problem List (1) History of CHF (congestive heart failure) SNOMED Code(s): 365517324 ICD Code: Z86.79 - PERSONAL HISTORY OF OTHER DISEASES OF THE CIRCULATORY SYSTEM Status: Acute Current Visit: Yes (2) Sepsis SNOMED Code(s): 75694777 ICD Code: A41.9 - SEPSIS, UNSPECIFIED ORGANISM Status: Acute Current Visit: Yes (3) UTI, Urinary tract infectious disease SNOMED Code(s): 90957700 ICD Code: N39.0 - URINARY TRACT INFECTION, SITE NOT SPECIFIED Status: Acute Current Visit: Yes (4) Acute renal failure SNOMED Code(s): 70014373 ICD Code: N17.9 - ACUTE KIDNEY FAILURE, UNSPECIFIED Status: Acute Current Visit: No (5) Atrial fibrillation SNOMED Code(s): 17707800 ICD Code: I48.91 - UNSPECIFIED ATRIAL FIBRILLATION Status: Acute Current Visit: No Problem List Initiated/Reviewed/Updated: Yes Orders Last 24hrs: Active Orders 24 hr Category Date Time Status Patient Status [ADT] Stat ADT 07/01/16 15:53 Active EKG 12 Lead [EKG Documentation Completion] [RC] STAT Care 07/01/16 13:14 Active Chest 2V [CR] Stat Exams 07/01/16 13:25 Taken CULTURE BLOOD [BC] Stat Lab 07/01/16 13:37 Received CULTURE BLOOD [BC] Stat Lab 07/01/16 13:45 Received CULTURE URINE [RM] Stat Lab 07/01/16 13:41 Received Blood Culture x2 Reflex Set [OM.PC] Stat Oth 07/01/16 13:34 Ordered Assessment/Plan Comment:: to ICU see orders Vaibhav Olivier MD
[2016-07-01] MEDS ORDERED: Ondansetron 4 MG Tab.DIS PO PRN (17:00)
[2016-07-01] MEDS ORDERED: Bisacodyl 5 MG Tab PO PRN (17:00)
[2016-07-01] MEDS ORDERED: Morphine 2 MG/ML Syringe IVPUSH PRN (17:00)
[2016-07-01] MEDS ORDERED: Temazepam 15 MG Cap PO PRN (17:00)
[2016-07-01] MEDS ORDERED: Metoprolol Tartrate 5 MG/5 ML SDV IVPUSH PRN (17:02)
[2016-07-01] MEDS: Sodium Chloride 0.9% 1,000 ML IV SCH (19:07)
[2016-07-01] MEDS: Insulin Aspart 100 Units/ML 3 ML Pen SUBCUT SCH ×2 (19:12→21:29)
[2016-07-01] MEDS: Piperacillin/Tazobactam 2.25 GM in Sodium Chloride 0.9% 50 ML IV SCH (21:18)
[2016-07-01] MEDS: Carvedilol 25 MG Tab PO SCH (21:20)
[2016-07-01] MEDS: Simvastatin 20 MG Tab PO SCH (21:21)
[2016-07-01] MEDS: Allopurinol 100 MG Tab PO SCH (21:21)
[2016-07-02] MEDS: Piperacillin/Tazobactam 2.25 GM in Sodium Chloride 0.9% 50 ML IV SCH ×4 (03:10→21:49)
[2016-07-02] MEDS: Sodium Chloride 0.9% 1,000 ML IV SCH (03:11)
[2016-07-02] MEDS: Omeprazole 20 MG Cap.CR PO SCH (07:17)
[2016-07-02] MEDS: Insulin Aspart 100 Units/ML 3 ML Pen SUBCUT SCH ×4 (07:19→20:26)
[2016-07-02] MEDS: Fish Oil/Omega-3 Fatty Acids 1 Gm Cap PO SCH (09:54)
[2016-07-02] MEDS: Allopurinol 100 MG Tab PO SCH ×2 (09:54→20:05)
[2016-07-02] MEDS: Insulin Glargine,Human Rec. Analog 100 Units/ML 3 ML Pen SUBCUT SCH (09:55)
[2016-07-02] MEDS: Carvedilol 25 MG Tab PO SCH ×2 (09:55→20:04)
--- NOTE | 2016-07-02 16:35 | PCM.PN ---
- General Info Date of Service: 07/02/16 - Review of Systems Systems Review Comment:: he notes back pain. He ate earlier today. He generally feels improved. - Patient Data Vitals - most recent: Last Vital Signs Temp 97.2 F 07/02/16 08:00 Pulse 113 H 07/02/16 09:55 Resp 15 07/02/16 14:00 BP 105/67 07/02/16 14:00 Pulse Ox 90 L 07/02/16 14:00 Weight - most recent: 116.9 kg I&O - last 24 hours: Intake & Output 07/02/16 07/02/16 07/02/16 06:59 14:59 22:59 Intake Total 1456 Output Total 520 Balance 936 Lab Results last 24 hrs: Laboratory Results - last 24 hr 07/01/16 07/01/16 07/02/16 Range/Units 19:09 21:24 04:45 WBC 16.19 H (4.0-11.0) K/uL RBC 3.34 L (4.50-5.90) M/uL Hgb 10.9 L (13.0-17.0) g/dL Hct 33.3 L (38.0-50.0) % MCV 99.7 H (80.0-98.0) fL MCH 32.6 H (27.0-32.0) pg MCHC 32.7 (31.0-37.0) g/dL RDW Std Deviation 58.2 (28.0-62.0) fl RDW Coeff of William 16 H (11.0-15.0) % Plt Count 104 L (150-400) K/uL MPV 12.20 H (7.40-12.00) fL INR (0.86-1.11) Sodium (136-146) mmol/L Potassium (3.5-5.1) mmol/L Chloride (98-110) mmol/L Carbon Dioxide (21-31) mmol/L BUN (6.0-23.0) mg/dL Creatinine (0.6-1.5) mg/dL Est Cr Clr Drug Dosing mL/min Estimated GFR (MDRD) ml/min Glucose (60-110) mg/dL POC Glucose 226 H 232 H (60-110) mg/dL Calcium (8.8-10.8) mg/dL Phosphorus (2.4-4.7) mg/dL Magnesium (1.5-2.3) mEq/L 07/02/16 07/02/16 07/02/16 Range/Units 04:45 04:45 07:18 WBC (4.0-11.0) K/uL RBC (4.50-5.90) M/uL Hgb (13.0-17.0) g/dL Hct (38.0-50.0) % MCV (80.0-98.0) fL MCH (27.0-32.0) pg MCHC (31.0-37.0) g/dL RDW Std Deviation (28.0-62.0) fl RDW Coeff of William (11.0-15.0) % Plt Count (150-400) K/uL MPV (7.40-12.00) fL INR 1.82 H (0.86-1.11) Sodium 139 (136-146) mmol/L Potassium 3.6 (3.5-5.1) mmol/L Chloride 100 (98-110) mmol/L Carbon Dioxide 26 (21-31) mmol/L BUN 73 H (6.0-23.0) mg/dL Creatinine 3.4 H (0.6-1.5) mg/dL Est Cr Clr Drug Dosing 20.63 mL/min Estimated GFR (MDRD) 17.9 ml/min Glucose 160 H (60-110) mg/dL POC Glucose 154 H (60-110) mg/dL Calcium 8.6 L (8.8-10.8) mg/dL Phosphorus 6.2 H (2.4-4.7) mg/dL Magnesium 1.5 (1.5-2.3) mEq/L 07/02/16 Range/Units 12:20 WBC (4.0-11.0) K/uL RBC (4.50-5.90) M/uL Hgb (13.0-17.0) g/dL Hct (38.0-50.0) % MCV (80.0-98.0) fL MCH (27.0-32.0) pg MCHC (31.0-37.0) g/dL RDW Std Deviation (28.0-62.0) fl RDW Coeff of William (11.0-15.0) % Plt Count (150-400) K/uL MPV (7.40-12.00) fL INR (0.86-1.11) Sodium (136-146) mmol/L Potassium (3.5-5.1) mmol/L Chloride (98-110) mmol/L Carbon Dioxide (21-31) mmol/L BUN (6.0-23.0) mg/dL Creatinine (0.6-1.5) mg/dL Est Cr Clr Drug Dosing mL/min Estimated GFR (MDRD) ml/min Glucose (60-110) mg/dL POC Glucose 184 H (60-110) mg/dL Calcium (8.8-10.8) mg/dL Phosphorus (2.4-4.7) mg/dL Magnesium (1.5-2.3) mEq/L Med Orders - Current: Current Medications Allopurinol (Zyloprim) 100 mg PO BID [facility] Last Admin: 07/02/16 09:54 Dose: 100 mg Bisacodyl (Dulcolax) 5 mg PO DAILY PRN PRN Reason: Constipation Carvedilol (Coreg) 25 mg PO BID [facility] Last Admin: 07/02/16 09:55 Dose: 25 mg Fish Oil (Fish Oil) 2 gm PO DAILY [facility] Last Admin: 07/02/16 09:54 Dose: 2 gm Piperacillin Sod/Tazobactam (Sod 2.25 gm/ Sodium Chloride) 50 mls @ 100 mls/hr IV Q6H [facility] Last Admin: 07/02/16 15:25 Dose: 100 mls/hr Insulin Aspart (Novolog) 0 unit SUBCUT ACBED [facility] PRN Reason: Protocol Last Admin: 07/02/16 12:21 Dose: 2 units Insulin Glargine (Lantus Solostar) 10 units SUBCUT DAILY [facility] Last Admin: 07/02/16 09:55 Dose: 10 unit Metoprolol Tartrate (Lopressor) 5 mg IVPUSH Q4H PRN PRN Reason: Tachycardia Morphine Sulfate (Morphine) 2 mg IVPUSH Q2H PRN PRN Reason: Pain (severe 7-10) Stop: 07/02/16 17:01 Omeprazole (Omeprazole) 20 mg PO ACBRK [facility] Last Admin: 07/02/16 07:17 Dose: 20 mg Ondansetron HCl (Zofran Odt) 4 mg PO Q4H PRN PRN Reason: nausea, able to take PO Simvastatin (Zocor) 20 mg PO BEDTIME [facility] Last Admin: 07/01/16 21:21 Dose: 20 mg Temazepam (Restoril) 15 mg PO BEDTIME PRN PRN Reason: Sleep Warfarin Sodium (Coumadin) 3 mg PO DAILY@1400 [place] Last Admin: 07/02/16 15:26 Dose: 3 mg Discontinued Medications Acetaminophen (Tylenol) 650 mg PO NOW ONE Stop: 07/01/16 13:48 Last Admin: 07/01/16 13:51 Dose: 650 mg Sodium Chloride (Normal Saline) 1,000 mls @ 999 mls/hr IV .Bolus ONE Stop: 07/01/16 14:25 Last Admin: 07/01/16 13:28 Dose: 999 mls/hr Sodium Chloride (Normal Saline) 1,000 mls @ 999 mls/hr IV STAT ONE Stop: 07/01/16 15:50 Last Admin: 07/01/16 14:53 Dose: 999 mls/hr Piperacillin Sod/Tazobactam (Sod 4.5 gm/ Sodium Chloride) 100 mls @ 100 mls/hr IV ONETIME ONE Stop: 07/01/16 15:59 Last Admin: 07/01/16 15:13 Dose: 100 mls/hr Sodium Chloride (Normal Saline) 1,000 mls @ 125 mls/hr IV ASDIRECTED [facility] Last Admin: 07/02/16 03:11 Dose: 125 mls/hr Metoprolol Tartrate (Lopressor) 5 mg IVPUSH Q4H PRN PRN Reason: Other Stop: 07/02/16 01:16 Last Admin: 07/01/16 20:02 Dose: 5 mg Warfarin Sodium (Coumadin) 2 mg PO MoFr@1400 [facility] - Exam General: alert, cooperative Lungs: Clear to auscultation, Normal respiratory effort Cardiovascular: irregular rhythm, other (monitor atrial fibrillation with RVR) Abdomen: no tenderness Neurological: normal speech - Problem List & Annotations (1) History of CHF (congestive heart failure) SNOMED Code(s): 279949222 Code(s): Z86.79 - PERSONAL HISTORY OF OTHER DISEASES OF THE CIRCULATORY SYSTEM Status: Acute Current Visit: Yes (2) Sepsis SNOMED Code(s): 98209345 Code(s): A41.9 - SEPSIS, UNSPECIFIED ORGANISM Status: Acute Current Visit : Yes (3) UTI, Urinary tract infectious disease SNOMED Code(s): 82832059 Code(s): N39.0 - URINARY TRACT INFECTION, SITE NOT SPECIFIED Status: Acute Current Visit: Yes (4) Acute renal failure SNOMED Code(s): 05680480 Code(s): N17.9 - ACUTE KIDNEY FAILURE, UNSPECIFIED Status: Acute Current Visit: No (5) Atrial fibrillation SNOMED Code(s): 90316696 Code(s): I48.91 - UNSPECIFIED ATRIAL FIBRILLATION Status: Acute Current Visit: No (6) Chronic kidney disease SNOMED Code(s): 475910832 Code(s): N18.9 - CHRONIC KIDNEY DISEASE, UNSPECIFIED Status: Acute Current Visit: Yes (7) Bladder cancer SNOMED Code(s): 074289755 Code(s): C67.9 - MALIGNANT NEOPLASM OF BLADDER, UNSPECIFIED Status: Acute Current Visit: Yes - Problem List Review Problem List Initiated/Reviewed/Updated: Yes - My Orders Last 24 Hours: My Active Orders 07/02/16 16:32 Metoprolol Tartrate [Lopressor] 5 mg IVPUSH Q4H PRN - Plan Plan:: to ICU see orders Vaibhav Olivier MD 07/02/2016 norco for back pain prn his serum creatinine is still unchanged at over 3; continue to monitor continue antibiotics monitor renal function prn lopressor for atrial fibrillation with rvr. Vaibhav Olivier MD
--- NOTE | 2016-07-02 16:39 | PCM.SN ---
- Free Text/Narrative Note: cautious fluid hydration for elevated serum creatinine. Holding diuretics at this time.
[2016-07-02] MEDS: Metoprolol Tartrate 5 MG/5 ML SDV IVPUSH PRN (17:43)
[2016-07-02] MEDS: Acetaminophen/HYDROcodone 325-5 MG Tab PO PRN (18:29)
[2016-07-02] MEDS: Simvastatin 20 MG Tab PO SCH (20:05)
[2016-07-02] MEDS: guaiFENesin/Dextromethorphan 100-10 MG/5 ML Soln 10 ML Cup PO PRN (22:52)
[2016-07-03] MEDS: Piperacillin/Tazobactam 2.25 GM in Sodium Chloride 0.9% 50 ML IV SCH ×2 (03:08→11:25)
[2016-07-03] MEDS: Sodium Chloride 0.9% 1,000 ML IV SCH ×2 (03:38→17:33)
[2016-07-03] MEDS: Insulin Aspart 100 Units/ML 3 ML Pen SUBCUT SCH ×4 (07:09→21:04)
[2016-07-03] MEDS: Omeprazole 20 MG Cap.CR PO SCH (07:09)
[2016-07-03] MEDS: Fish Oil/Omega-3 Fatty Acids 1 Gm Cap PO SCH (08:28)
[2016-07-03] MEDS: Allopurinol 100 MG Tab PO SCH ×2 (08:28→20:42)
[2016-07-03] MEDS: Carvedilol 25 MG Tab PO SCH ×2 (08:28→20:42)
--- NOTE | 2016-07-03 09:54 | PCM.PN ---
- General Info Date of Service: 07/03/16 Functional Status: Reports: tolerating diet, urinating - Review of Systems General: Reports: no symptoms HEENT: Reports: no symptoms Pulmonary: Reports: shortness of breath Cardiovascular: Reports: no symptoms Gastrointestinal: Reports: No symptoms Genitourinary: Reports: no symptoms Musculoskeletal: Reports: no symptoms Skin: Reports: no symptoms Neurological: Reports: no symptoms Psychiatric: Reports: no symptoms - Patient Data Vitals - most recent: Last Vital Signs Temp 97.3 F 07/03/16 08:00 Pulse 102 H 07/03/16 08:28 Resp 23 H 07/03/16 08:00 BP 114/74 07/03/16 08:28 Pulse Ox 91 L 07/03/16 08:00 Weight - most recent: 116.6 kg I&O - last 24 hours: Intake & Output 07/02/16 07/03/16 07/03/16 22:59 06:59 14:59 Intake Total 550 50 Output Total 650 Balance -100 50 Lab Results last 24 hrs: Laboratory Results - last 24 hr 07/02/16 07/02/16 07/02/16 Range/Units 12:20 17:37 20:24 WBC (4.0-11.0) K/uL RBC (4.50-5.90) M/uL Hgb (13.0-17.0) g/dL Hct (38.0-50.0) % MCV (80.0-98.0) fL MCH (27.0-32.0) pg MCHC (31.0-37.0) g/dL RDW Std Deviation (28.0-62.0) fl RDW Coeff of William (11.0-15.0) % Plt Count (150-400) K/uL MPV (7.40-12.00) fL INR (0.86-1.11) Sodium (136-146) mmol/L Potassium (3.5-5.1) mmol/L Chloride (98-110) mmol/L Carbon Dioxide (21-31) mmol/L BUN (6.0-23.0) mg/dL Creatinine (0.6-1.5) mg/dL Est Cr Clr Drug Dosing mL/min Estimated GFR (MDRD) ml/min Glucose (60-110) mg/dL POC Glucose 184 H 258 H 335 H (60-110) mg/dL Calcium (8.8-10.8) mg/dL Magnesium (1.5-2.3) mEq/L 07/03/16 07/03/16 07/03/16 Range/Units 04:20 04:20 04:20 WBC 9.94 (4.0-11.0) K/uL RBC 3.23 L (4.50-5.90) M/uL Hgb 10.6 L (13.0-17.0) g/dL Hct 32.3 L (38.0-50.0) % MCV 100.0 H (80.0-98.0) fL MCH 32.8 H (27.0-32.0) pg MCHC 32.8 (31.0-37.0) g/dL RDW Std Deviation 58.0 (28.0-62.0) fl RDW Coeff of William 16 H (11.0-15.0) % Plt Count 110 L (150-400) K/uL MPV 11.80 (7.40-12.00) fL INR 2.25 H (0.86-1.11) Sodium 139 (136-146) mmol/L Potassium 3.7 (3.5-5.1) mmol/L Chloride 101 (98-110) mmol/L Carbon Dioxide 24 (21-31) mmol/L BUN 80 H (6.0-23.0) mg/dL Creatinine 3.8 H (0.6-1.5) mg/dL Est Cr Clr Drug Dosing 18.46 mL/min Estimated GFR (MDRD) 15.8 ml/min Glucose 274 H (60-110) mg/dL POC Glucose (60-110) mg/dL Calcium 8.6 L (8.8-10.8) mg/dL Magnesium 1.8 (1.5-2.3) mEq/L Med Orders - Current: Current Medications Acetaminophen/Hydrocodone Bitart (Freedom 325-5 Mg) 1 tab PO Q3H PRN PRN Reason: Pain Last Admin: 07/02/16 18:29 Dose: 1 tab Allopurinol (Zyloprim) 100 mg PO BID [facility] Last Admin: 07/03/16 08:28 Dose: 100 mg Bisacodyl (Dulcolax) 5 mg PO DAILY PRN PRN Reason: Constipation Carvedilol (Coreg) 25 mg PO BID [facility] Last Admin: 07/03/16 08:28 Dose: 25 mg Fish Oil (Fish Oil) 2 gm PO DAILY [facility] Last Admin: 07/03/16 08:28 Dose: 2 gm Guaifenesin/Dextromethorphan (Robitussin Dm) 10 ml PO Q6H PRN PRN Reason: Cough Last Admin: 07/02/16 22:52 Dose: 10 ml Piperacillin Sod/Tazobactam (Sod 2.25 gm/ Sodium Chloride) 50 mls @ 100 mls/hr IV Q6H [facility] Last Admin: 07/03/16 03:08 Dose: 100 mls/hr Sodium Chloride (Normal Saline) 1,000 mls @ 75 mls/hr IV ASDIRECTED [facility] Last Admin: 07/03/16 03:38 Dose: 75 mls/hr Insulin Aspart (Novolog) 0 unit SUBCUT ACBED [facility] PRN Reason: Protocol Last Admin: 07/03/16 07:09 Dose: 6 units Insulin Glargine (Lantus Solostar) 10 units SUBCUT DAILY [facility] Last Admin: 07/02/16 09:55 Dose: 10 unit Metoprolol Tartrate (Lopressor) 5 mg IVPUSH Q4H PRN PRN Reason: Tachycardia Last Admin: 07/02/16 17:43 Dose: 5 mg Omeprazole (Omeprazole) 20 mg PO ACBRK [facility] Last Admin: 07/03/16 07:09 Dose: 20 mg Ondansetron HCl (Zofran Odt) 4 mg PO Q4H PRN PRN Reason: nausea, able to take PO Simvastatin (Zocor) 20 mg PO BEDTIME [facility] Last Admin: 07/02/16 20:05 Dose: 20 mg Temazepam (Restoril) 15 mg PO BEDTIME PRN PRN Reason: Sleep Warfarin Sodium (Coumadin) 3 mg PO DAILY@1400 [facility] Last Admin: 07/02/16 15:26 Dose: 3 mg Discontinued Medications Acetaminophen (Tylenol) 650 mg PO NOW ONE Stop: 07/01/16 13:48 Last Admin: 07/01/16 13:51 Dose: 650 mg Sodium Chloride (Normal Saline) 1,000 mls @ 999 mls/hr IV .Bolus ONE Stop: 07/01/16 14:25 Last Admin: 07/01/16 13:28 Dose: 999 mls/hr Sodium Chloride (Normal Saline) 1,000 mls @ 999 mls/hr IV STAT ONE Stop: 07/01/16 15:50 Last Admin: 07/01/16 14:53 Dose: 999 mls/hr Piperacillin Sod/Tazobactam (Sod 4.5 gm/ Sodium Chloride) 100 mls @ 100 mls/hr IV ONETIME ONE Stop: 07/01/16 15:59 Last Admin: 07/01/16 15:13 Dose: 100 mls/hr Sodium Chloride (Normal Saline) 1,000 mls @ 125 mls/hr IV ASDIRECTED [facility] Last Admin: 07/02/16 03:11 Dose: 125 mls/hr Metoprolol Tartrate (Lopressor) 5 mg IVPUSH Q4H PRN PRN Reason: Other Stop: 07/02/16 01:16 Last Admin: 07/01/16 20:02 Dose: 5 mg Morphine Sulfate (Morphine) 2 mg IVPUSH Q2H PRN PRN Reason: Pain (severe 7-10) Stop: 07/02/16 17:01 Warfarin Sodium (Coumadin) 2 mg PO MoFr@1400 [facility] - Exam General: alert, oriented HEENT: Pupils equal, EOMI Neck: supple, trachea midline Lungs: Decreased breath sounds Cardiovascular: regular rate, regular rhythm Abdomen: bowel sounds present, soft Back Exam: normal inspection, full range of motion Extremities: no edema Skin: warm, dry, intact Wound/Incisions: healing well Neurological: no new focal deficit Psy/Mental Status: alert, normal affect, normal mood - Problem List Review Problem List Initiated/Reviewed/Updated: Yes - Plan Plan:: Improving: transfer to floor. urine culture: klebseilla oxycota. DC zosyn due to creatinine 3.8. Reviewed sensitivites. Start Rocephin q 24. norco for back pain prn monitor renal function prn lopressor for atrial fibrillation with rvr. PT for strengthening
[2016-07-03] MEDS: Insulin Glargine,Human Rec. Analog 100 Units/ML 3 ML Pen SUBCUT SCH ×2 (11:23→21:03)
--- NOTE | 2016-07-03 11:39 | PCM.SN ---
- Free Text/Narrative Note: I reviewed case , examined patient and reviewed lab. increased serum creatinine as well as ahead on I/Os noted. will restart diuretics. If serum creatinine still increasing tomorrow, may consider transfer. MD Andre
[2016-07-03] MEDS: cefTRIAXone 1 GM in Premix Bag 1 BAG IV SCH (12:39)
[2016-07-03] MEDS: Bumetanide 1 MG Tab PO SCH ×2 (12:56→20:41)
[2016-07-03] MEDS: Acetaminophen/HYDROcodone 325-5 MG Tab PO PRN (12:56)
[2016-07-03] MEDS ORDERED: Metolazone 5 MG Tab PO SCH (13:30)
[2016-07-03] MEDS ORDERED: Warfarin 2 MG Tab PO SCH (14:00)
--- NOTE | 2016-07-03 15:45 | CR ---
EXAM DATE: 07/01/16 PATIENT'S AGE: 70 Patient: SCHUYLER ESTRADA Facility: [place], [place] Site . Site : 1945 Study: XRay Chest [id number]/25/2017 2:07:48 PM Ordering Physician: Doctor Escobar Final Report: INDICATION: Shortness of breath. TECHNIQUE: Chest 2 views. COMPARISON: May 26, 2016. FINDINGS: Cardiovascular and mediastinum: Stable cardiomegaly. Pulmonary vasculature is normal. Mediastinum is within normal limits. Lungs and pleural spaces: Stable trace right basilar pleural effusion. Remainder of the lungs and pleural spaces are clear. Bones and soft tissues: No significant findings. IMPRESSION: No changes from the prior exam. Stable cardiomegaly and trace right-sided pleural effusion. Dictated by Robert Nassar MD @ 07/01/2016 2:40:00 PM Dictated by: Robert Nassar MD @ 07/01/2016 14:40:09 (Electronic Signature) Report Signed by Proxy and Original Signed Document filed in the Medical Record. [facility]
--- NOTE | 2016-07-03 16:49 | US ---
EXAM DATE: 07/01/16 PATIENT'S AGE: 70 Patient: SCHUYLER ESTRADA Facility: [place], [place] Site . Site : 1945 Study: US Abdomen [id number]/26/2017 8:43:25 AM Ordering Physician: Charline Andersen Final Report: INDICATION: ELEVATED BILI AND ALK PHOSPHATE,GRAM NEGATIVE SEPSIS INDICATION: Elevated bilirubin and alkaline phosphatase. Patient is gram negative sepsis. FINDINGS: The visualized liver echotexture is within normal limits. No large masses or intrahepatic biliary dilatation is identified. The gallbladder is partially fluid-filled. The wall is thickened at 4-5 mm. There are gallstones identified in the neck of the gallbladder causing some shadowing. The common bile duct is normal at 3 mm. The right kidney is 9.2 cm in length and there is no hydronephrosis. No significant free fluid is seen in the upper abdomen. Impression: The gallbladder is partially fluid-filled. The wall is thickened at 4-5 mm. Gallstones in the neck of the gallbladder are noted. There is no biliary dilatation. The visualized liver echotexture is within normal limits. Dictated by Ganesh Pena MD @ 07/02/2016 9:04:59 AM Dictated by: Ganesh Pena MD @ 07/02/2016 09:05:04 (Electronic Signature) Report Signed by Proxy and Original Signed Document filed in the Medical Record. [facility]
[2016-07-03] MEDS: Simvastatin 20 MG Tab PO SCH (20:42)
[2016-07-04] MEDS: Omeprazole 20 MG Cap.CR PO SCH (06:46)
[2016-07-04] MEDS: Sodium Chloride 0.9% 1,000 ML IV SCH ×3 (06:46→22:44)
[2016-07-04] MEDS: Insulin Aspart 100 Units/ML 3 ML Pen SUBCUT SCH ×5 (07:37→20:26)
[2016-07-04] MEDS: Allopurinol 100 MG Tab PO SCH ×2 (08:33→20:26)
[2016-07-04] MEDS: Fish Oil/Omega-3 Fatty Acids 1 Gm Cap PO SCH (08:33)
[2016-07-04] MEDS: Insulin Glargine,Human Rec. Analog 100 Units/ML 3 ML Pen SUBCUT SCH (09:31)
[2016-07-04] MEDS: Carvedilol 25 MG Tab PO SCH ×2 (09:36→20:26)
[2016-07-04] MEDS: Bumetanide 1 MG Tab PO SCH (10:19)
[2016-07-04] MEDS: cefTRIAXone 1 GM in Premix Bag 1 BAG IV SCH (10:32)
--- NOTE | 2016-07-04 10:45 | PCM.PN ---
<Dasha Barrios - Last Filed: 07/04/16 11:38> - General Info Date of Service: 07/04/16 Functional Status: Reports: pain controlled - Review of Systems General: Reports: no symptoms HEENT: Reports: no symptoms Pulmonary: Reports: no symptoms Cardiovascular: Reports: no symptoms Gastrointestinal: Reports: No symptoms Genitourinary: Reports: no symptoms Musculoskeletal: Reports: no symptoms Skin: Reports: no symptoms Neurological: Reports: no symptoms Psychiatric: Reports: no symptoms - Patient Data Vitals - most recent: Last Vital Signs Temp 98.7 F 07/04/16 08:00 Pulse 96 07/04/16 09:36 Resp 18 07/04/16 08:00 BP 119/77 07/04/16 09:36 Pulse Ox 96 07/04/16 08:00 Weight - most recent: 257 lb 0.944 oz I&O - last 24 hours: Intake & Output 07/03/16 07/04/16 07/04/16 22:59 06:59 14:59 Intake Total 1100 1500 Output Total 425 500 Balance 675 1000 Lab Results last 24 hrs: Laboratory Results - last 24 hr 07/03/16 07/03/16 07/03/16 Range/Units 06:57 12:48 17:32 WBC (4.0-11.0) K/uL RBC (4.50-5.90) M/uL Hgb (13.0-17.0) g/dL Hct (38.0-50.0) % MCV (80.0-98.0) fL MCH (27.0-32.0) pg MCHC (31.0-37.0) g/dL RDW Std Deviation (28.0-62.0) fl RDW Coeff of William (11.0-15.0) % Plt Count (150-400) K/uL MPV (7.40-12.00) fL Neut % (Auto) (48.0-80.0) % Lymph % (Auto) (16.0-40.0) % [place] % (Auto) (0.0-15.0) % Eos % (Auto) (0.0-7.0) % Baso % (Auto) (0.0-1.5) % Neut # (1.4-5.7) K/uL Lymph # (0.6-2.4) K/uL [place] # (0.0-0.8) K/uL Eos # (0.0-0.7) K/uL Baso # (0.0-0.1) K/uL Nucleated RBC % /100WBC Nucleated RBCs # K/uL INR (0.86-1.11) Sodium (136-146) mmol/L Potassium (3.5-5.1) mmol/L Chloride (98-110) mmol/L Carbon Dioxide (21-31) mmol/L BUN (6.0-23.0) mg/dL Creatinine (0.6-1.5) mg/dL Est Cr Clr Drug Dosing mL/min Estimated GFR (MDRD) ml/min Glucose (60-110) mg/dL POC Glucose 254 H 268 H 255 H (60-110) mg/dL Calcium (8.8-10.8) mg/dL Phosphorus (2.4-4.7) mg/dL Magnesium (1.5-2.3) mEq/L 07/03/16 07/04/16 07/04/16 Range/Units 21:01 05:10 05:10 WBC 9.58 (4.0-11.0) K/uL RBC 3.49 L (4.50-5.90) M/uL Hgb 11.2 L (13.0-17.0) g/dL Hct 34.1 L (38.0-50.0) % MCV 97.7 (80.0-98.0) fL MCH 32.1 H (27.0-32.0) pg MCHC 32.8 (31.0-37.0) g/dL RDW Std Deviation 59.9 (28.0-62.0) fl RDW Coeff of William 17 H (11.0-15.0) % Plt Count 118 L (150-400) K/uL MPV 11.50 (7.40-12.00) fL Neut % (Auto) 86.6 H (48.0-80.0) % Lymph % (Auto) 4.0 L (16.0-40.0) % [place] % (Auto) 6.8 (0.0-15.0) % Eos % (Auto) 2.2 (0.0-7.0) % Baso % (Auto) 0.4 (0.0-1.5) % Neut # 8.3 H (1.4-5.7) K/uL Lymph # 0.4 L (0.6-2.4) K/uL [place] # 0.7 (0.0-0.8) K/uL Eos # 0.2 (0.0-0.7) K/uL Baso # 0.0 (0.0-0.1) K/uL Nucleated RBC % 0.0 /100WBC Nucleated RBCs # 0 K/uL INR 2.81 H (0.86-1.11) Sodium (136-146) mmol/L Potassium (3.5-5.1) mmol/L Chloride (98-110) mmol/L Carbon Dioxide (21-31) mmol/L BUN (6.0-23.0) mg/dL Creatinine (0.6-1.5) mg/dL Est Cr Clr Drug Dosing mL/min Estimated GFR (MDRD) ml/min Glucose (60-110) mg/dL POC Glucose 304 H (60-110) mg/dL Calcium (8.8-10.8) mg/dL Phosphorus (2.4-4.7) mg/dL Magnesium (1.5-2.3) mEq/L 07/04/16 07/04/16 Range/Units 05:10 06:42 WBC (4.0-11.0) K/uL RBC (4.50-5.90) M/uL Hgb (13.0-17.0) g/dL Hct (38.0-50.0) % MCV (80.0-98.0) fL MCH (27.0-32.0) pg MCHC (31.0-37.0) g/dL RDW Std Deviation (28.0-62.0) fl RDW Coeff of William (11.0-15.0) % Plt Count (150-400) K/uL MPV (7.40-12.00) fL Neut % (Auto) (48.0-80.0) % Lymph % (Auto) (16.0-40.0) % [place] % (Auto) (0.0-15.0) % Eos % (Auto) (0.0-7.0) % Baso % (Auto) (0.0-1.5) % Neut # (1.4-5.7) K/uL Lymph # (0.6-2.4) K/uL [place] # (0.0-0.8) K/uL Eos # (0.0-0.7) K/uL Baso # (0.0-0.1) K/uL Nucleated RBC % /100WBC Nucleated RBCs # K/uL INR (0.86-1.11) Sodium 138 (136-146) mmol/L Potassium 3.7 (3.5-5.1) mmol/L Chloride 102 (98-110) mmol/L Carbon Dioxide 22 (21-31) mmol/L BUN 85 H (6.0-23.0) mg/dL Creatinine 3.9 H (0.6-1.5) mg/dL Est Cr Clr Drug Dosing 17.98 mL/min Estimated GFR (MDRD) 15.3 ml/min Glucose 281 H (60-110) mg/dL POC Glucose 252 H (60-110) mg/dL Calcium 8.5 L (8.8-10.8) mg/dL Phosphorus 6.3 H (2.4-4.7) mg/dL Magnesium 1.9 (1.5-2.3) mEq/L Med Orders - Current: Current Medications Acetaminophen/Hydrocodone Bitart ([place] 325-5 Mg) 1 tab PO Q3H PRN PRN Reason: Pain Last Admin: 07/03/16 12:56 Dose: 1 tab Allopurinol (Zyloprim) 100 mg PO BID [facility] Last Admin: 07/04/16 08:33 Dose: 100 mg Bisacodyl (Dulcolax) 5 mg PO DAILY PRN PRN Reason: Constipation Carvedilol (Coreg) 25 mg PO BID [facility] Last Admin: 07/04/16 09:36 Dose: 25 mg Fish Oil (Fish Oil) 2 gm PO DAILY [facility] Last Admin: 07/04/16 08:33 Dose: 2 gm Guaifenesin/Dextromethorphan (Robitussin Dm) 10 ml PO Q6H PRN PRN Reason: Cough Last Admin: 07/02/16 22:52 Dose: 10 ml Sodium Chloride (Normal Saline) 1,000 mls @ 150 mls/hr IV ASDIRECTED [facility] Last Infusion: 07/04/16 10:16 Dose: 150 mls/hr Ceftriaxone Sodium/Dextrose 1 (gm/ Premix) 50 mls @ 100 mls/hr IV Q24H [facility] Last Admin: 07/03/16 12:39 Dose: 100 mls/hr Insulin Aspart (Novolog) 0 unit SUBCUT ACBED [facility] PRN Reason: Protocol Last Admin: 07/04/16 07:37 Dose: 6 units Insulin Glargine (Lantus Solostar) 20 units SUBCUT DAILY [facility] Last Admin: 07/04/16 09:31 Dose: 20 units Metoprolol Tartrate (Lopressor) 5 mg IVPUSH Q4H PRN PRN Reason: Tachycardia Last Admin: 07/02/16 17:43 Dose: 5 mg Omeprazole (Omeprazole) 20 mg PO ACBRK [facility] Last Admin: 07/04/16 06:46 Dose: 20 mg Ondansetron HCl (Zofran Odt) 4 mg PO Q4H PRN PRN Reason: nausea, able to take PO Simvastatin (Zocor) 20 mg PO BEDTIME [facility] Last Admin: 07/03/16 20:42 Dose: 20 mg Temazepam (Restoril) 15 mg PO BEDTIME PRN PRN Reason: Sleep Warfarin Sodium (Coumadin) 3 mg PO DAILY@1400 [facility] Last Admin: 07/03/16 13:00 Dose: 3 mg Discontinued Medications Acetaminophen (Tylenol) 650 mg PO NOW ONE Stop: 07/01/16 13:48 Last Admin: 07/01/16 13:51 Dose: 650 mg Bumetanide (Bumex) 2 mg PO BID [facility] Last Admin: 07/04/16 10:19 Dose: Not Given Sodium Chloride (Normal Saline) 1,000 mls @ 999 mls/hr IV .Bolus ONE Stop: 07/01/16 14:25 Last Admin: 07/01/16 13:28 Dose: 999 mls/hr Sodium Chloride (Normal Saline) 1,000 mls @ 999 mls/hr IV STAT ONE Stop: 07/01/16 15:50 Last Admin: 07/01/16 14:53 Dose: 999 mls/hr Piperacillin Sod/Tazobactam (Sod 4.5 gm/ Sodium Chloride) 100 mls @ 100 mls/hr IV ONETIME ONE Stop: 07/01/16 15:59 Last Admin: 07/01/16 15:13 Dose: 100 mls/hr Piperacillin Sod/Tazobactam (Sod 2.25 gm/ Sodium Chloride) 50 mls @ 100 mls/hr IV Q6H [facility] Last Admin: 07/03/16 11:25 Dose: Not Given Sodium Chloride (Normal Saline) 1,000 mls @ 125 mls/hr IV ASDIRECTED [facility] Last Admin: 07/02/16 03:11 Dose: 125 mls/hr Insulin Glargine (Lantus Solostar) 10 units SUBCUT DAILY [facility] Last Admin: 07/03/16 11:23 Dose: Not Given Metolazone (Zaroxolyn) 5 mg PO MoWeFr@0800 [facility] Last Admin: 07/03/16 14:28 Dose: 5 mg Metoprolol Tartrate (Lopressor) 5 mg IVPUSH Q4H PRN PRN Reason: Other Stop: 07/02/16 01:16 Last Admin: 07/01/16 20:02 Dose: 5 mg Morphine Sulfate (Morphine) 2 mg IVPUSH Q2H PRN PRN Reason: Pain (severe 7-10) Stop: 07/02/16 17:01 Warfarin Sodium (Coumadin) 2 mg PO MoFr@1400 [facility] - Exam Quality Assessment: supplemental oxygen General: alert, oriented, cooperative HEENT: Pupils equal, EOMI Neck: supple, trachea midline Lungs: Decreased breath sounds Cardiovascular: regular rate, regular rhythm Abdomen: bowel sounds present Back Exam: normal inspection, full range of motion Extremities: edema (+3 edema ) Skin: warm, dry - Problem List Review Problem List Initiated/Reviewed/Updated: Yes - My Orders Last 24 Hours: My Active Orders 07/03/16 10:32 Transfer Patient (Change bed) [ADT] Routine 07/03/16 10:45 cefTRIAXone [Rocephin in Dextrose,Iso-Osm 1 GM/50 ML] 1 gm Premix Bag 1 bag IV Q24H 07/03/16 10:57 PT Evaluation and Treatment [CONS] Routine 07/03/16 11:00 Telemetry Monitoring [Cardiac Monitoring] [RC] Q8H 07/03/16 21:00 Insulin Glarg,Human.Rec.Analog [LantUS Solostar] 20 units SUBCUT DAILY 07/05/16 05:11 CBC WITH AUTO DIFF [HEME] AM 07/06/16 05:11 CBC WITH AUTO DIFF [HEME] AM - Plan Plan:: Serum CR 3.9. Spoke to hosptilist in [facility]. Dr. Hernandez. He recommend to monitor serum creatine and hydrate him with fluids carefully and to discontinue diruetics. If elevated tomorrow to call back for transfer. <Don Peterson - Last Filed: 07/04/16 15:11> - General Info Subjective Update: Patient feeling well , OBC - Patient Data Vitals - most recent: Last Vital Signs Temp 97.8 F 07/04/16 12:38 Pulse 115 H 07/04/16 12:48 Resp 15 07/04/16 12:38 BP 122/69 07/04/16 12:48 Pulse Ox 93 L 07/04/16 12:38 I&O - last 24 hours: Intake & Output 07/04/16 07/04/16 07/04/16 06:59 14:59 22:59 Intake Total 1500 200 Output Total 500 Balance 1000 200 Lab Results last 24 hrs: Laboratory Results - last 24 hr 07/03/16 07/03/16 07/04/16 Range/Units 17:32 21:01 05:10 WBC 9.58 (4.0-11.0) K/uL RBC 3.49 L (4.50-5.90) M/uL Hgb 11.2 L (13.0-17.0) g/dL Hct 34.1 L (38.0-50.0) % MCV 97.7 (80.0-98.0) fL MCH 32.1 H (27.0-32.0) pg MCHC 32.8 (31.0-37.0) g/dL RDW Std Deviation 59.9 (28.0-62.0) fl RDW Coeff of William 17 H (11.0-15.0) % Plt Count 118 L (150-400) K/uL MPV 11.50 (7.40-12.00) fL Neut % (Auto) 86.6 H (48.0-80.0) % Lymph % (Auto) 4.0 L (16.0-40.0) % [place] % (Auto) 6.8 (0.0-15.0) % Eos % (Auto) 2.2 (0.0-7.0) % Baso % (Auto) 0.4 (0.0-1.5) % Neut # 8.3 H (1.4-5.7) K/uL Lymph # 0.4 L (0.6-2.4) K/uL [place] # 0.7 (0.0-0.8) K/uL Eos # 0.2 (0.0-0.7) K/uL Baso # 0.0 (0.0-0.1) K/uL Nucleated RBC % 0.0 /100WBC Nucleated RBCs # 0 K/uL INR (0.86-1.11) Sodium (136-146) mmol/L Potassium (3.5-5.1) mmol/L Chloride (98-110) mmol/L Carbon Dioxide (21-31) mmol/L BUN (6.0-23.0) mg/dL Creatinine (0.6-1.5) mg/dL Est Cr Clr Drug Dosing mL/min Estimated GFR (MDRD) ml/min Glucose (60-110) mg/dL POC Glucose 255 H 304 H (60-110) mg/dL Calcium (8.8-10.8) mg/dL Phosphorus (2.4-4.7) mg/dL Magnesium (1.5-2.3) mEq/L 07/04/16 07/04/16 07/04/16 Range/Units 05:10 05:10 06:42 WBC (4.0-11.0) K/uL RBC (4.50-5.90) M/uL Hgb (13.0-17.0) g/dL Hct (38.0-50.0) % MCV (80.0-98.0) fL MCH (27.0-32.0) pg MCHC (31.0-37.0) g/dL RDW Std Deviation (28.0-62.0) fl RDW Coeff of William (11.0-15.0) % Plt Count (150-400) K/uL MPV (7.40-12.00) fL Neut % (Auto) (48.0-80.0) % Lymph % (Auto) (16.0-40.0) % [place] % (Auto) (0.0-15.0) % Eos % (Auto) (0.0-7.0) % Baso % (Auto) (0.0-1.5) % Neut # (1.4-5.7) K/uL Lymph # (0.6-2.4) K/uL [place] # (0.0-0.8) K/uL Eos # (0.0-0.7) K/uL Baso # (0.0-0.1) K/uL Nucleated RBC % /100WBC Nucleated RBCs # K/uL INR 2.81 H (0.86-1.11) Sodium 138 (136-146) mmol/L Potassium 3.7 (3.5-5.1) mmol/L Chloride 102 (98-110) mmol/L Carbon Dioxide 22 (21-31) mmol/L BUN 85 H (6.0-23.0) mg/dL Creatinine 3.9 H (0.6-1.5) mg/dL Est Cr Clr Drug Dosing 17.98 mL/min Estimated GFR (MDRD) 15.3 ml/min Glucose 281 H (60-110) mg/dL POC Glucose 252 H (60-110) mg/dL Calcium 8.5 L (8.8-10.8) mg/dL Phosphorus 6.3 H (2.4-4.7) mg/dL Magnesium 1.9 (1.5-2.3) mEq/L 07/04/16 Range/Units 11:59 WBC (4.0-11.0) K/uL RBC (4.50-5.90) M/uL Hgb (13.0-17.0) g/dL Hct (38.0-50.0) % MCV (80.0-98.0) fL MCH (27.0-32.0) pg MCHC (31.0-37.0) g/dL RDW Std Deviation (28.0-62.0) fl RDW Coeff of William (11.0-15.0) % Plt Count (150-400) K/uL MPV (7.40-12.00) fL Neut % (Auto) (48.0-80.0) % Lymph % (Auto) (16.0-40.0) % [place] % (Auto) (0.0-15.0) % Eos % (Auto) (0.0-7.0) % Baso % (Auto) (0.0-1.5) % Neut # (1.4-5.7) K/uL Lymph # (0.6-2.4) K/uL [place] # (0.0-0.8) K/uL Eos # (0.0-0.7) K/uL Baso # (0.0-0.1) K/uL Nucleated RBC % /100WBC Nucleated RBCs # K/uL INR (0.86-1.11) Sodium (136-146) mmol/L Potassium (3.5-5.1) mmol/L Chloride (98-110) mmol/L Carbon Dioxide (21-31) mmol/L BUN (6.0-23.0) mg/dL Creatinine (0.6-1.5) mg/dL Est Cr Clr Drug Dosing mL/min Estimated GFR (MDRD) ml/min Glucose (60-110) mg/dL POC Glucose 284 H (60-110) mg/dL Calcium (8.8-10.8) mg/dL Phosphorus (2.4-4.7) mg/dL Magnesium (1.5-2.3) mEq/L Med Orders - Current: Current Medications Acetaminophen/Hydrocodone Bitart ([place] 325-5 Mg) 1 tab PO Q3H PRN PRN Reason: Pain Last Admin: 07/04/16 12:49 Dose: 1 tab Allopurinol (Zyloprim) 100 mg PO BID [facility] Last Admin: 07/04/16 08:33 Dose: 100 mg Bisacodyl (Dulcolax) 5 mg PO DAILY PRN PRN Reason: Constipation Carvedilol (Coreg) 25 mg PO BID [facility] Last Admin: 07/04/16 09:36 Dose: 25 mg Fish Oil (Fish Oil) 2 gm PO DAILY [facility] Last Admin: 07/04/16 08:33 Dose: 2 gm Guaifenesin/Dextromethorphan (Robitussin Dm) 10 ml PO Q6H PRN PRN Reason: Cough Last Admin: 07/02/16 22:52 Dose: 10 ml Sodium Chloride (Normal Saline) 1,000 mls @ 150 mls/hr IV ASDIRECTED [facility] Last Infusion: 07/04/16 10:16 Dose: 150 mls/hr Ciprofloxacin/Dextrose 200 mg/ (Premix) 100 mls @ 100 mls/hr IV Q12H [facility] Last Admin: 07/04/16 11:19 Dose: 100 mls/hr Insulin Aspart (Novolog) 0 unit SUBCUT ACBED [facility] PRN Reason: Protocol Last Admin: 07/04/16 12:21 Dose: 6 units Insulin Glargine (Lantus Solostar) 20 units SUBCUT DAILY [facility] Last Admin: 07/04/16 09:31 Dose: 20 units Metoprolol Tartrate (Lopressor) 5 mg IVPUSH Q4H PRN PRN Reason: Tachycardia Last Admin: 07/04/16 12:48 Dose: 5 mg Omeprazole (Omeprazole) 20 mg PO ACBRK [facility] Last Admin: 07/04/16 06:46 Dose: 20 mg Ondansetron HCl (Zofran Odt) 4 mg PO Q4H PRN PRN Reason: nausea, able to take PO Simvastatin (Zocor) 20 mg PO BEDTIME [facility] Last Admin: 07/03/16 20:42 Dose: 20 mg Temazepam (Restoril) 15 mg PO BEDTIME PRN PRN Reason: Sleep Warfarin Sodium (Coumadin Ask) 1 each PO DAILY@1400 [facility] Last Admin: 07/04/16 14:46 Dose: Not Given Discontinued Medications Acetaminophen (Tylenol) 650 mg PO NOW ONE Stop: 07/01/16 13:48 Last Admin: 07/01/16 13:51 Dose: 650 mg Bumetanide (Bumex) 2 mg PO BID [facility] Last Admin: 07/04/16 10:19 Dose: Not Given Sodium Chloride (Normal Saline) 1,000 mls @ 999 mls/hr IV .Bolus ONE Stop: 07/01/16 14:25 Last Admin: 07/01/16 13:28 Dose: 999 mls/hr Sodium Chloride (Normal Saline) 1,000 mls @ 999 mls/hr IV STAT ONE Stop: 07/01/16 15:50 Last Admin: 07/01/16 14:53 Dose: 999 mls/hr Piperacillin Sod/Tazobactam (Sod 4.5 gm/ Sodium Chloride) 100 mls @ 100 mls/hr IV ONETIME ONE Stop: 07/01/16 15:59 Last Admin: 07/01/16 15:13 Dose: 100 mls/hr Piperacillin Sod/Tazobactam (Sod 2.25 gm/ Sodium Chloride) 50 mls @ 100 mls/hr IV Q6H [facility] Last Admin: 07/03/16 11:25 Dose: Not Given Sodium Chloride (Normal Saline) 1,000 mls @ 125 mls/hr IV ASDIRECTED [facility] Last Admin: 07/02/16 03:11 Dose: 125 mls/hr Ceftriaxone Sodium/Dextrose 1 (gm/ Premix) 50 mls @ 100 mls/hr IV Q24H [facility] Last Admin: 07/04/16 10:32 Dose: 100 mls/hr Insulin Glargine (Lantus Solostar) 10 units SUBCUT DAILY [facility] Last Admin: 07/03/16 11:23 Dose: Not Given Metolazone (Zaroxolyn) 5 mg PO MoWeFr@0800 [facility] Last Admin: 07/03/16 14:28 Dose: 5 mg Metoprolol Tartrate (Lopressor) 5 mg IVPUSH Q4H PRN PRN Reason: Other Stop: 07/02/16 01:16 Last Admin: 07/01/16 20:02 Dose: 5 mg Morphine Sulfate (Morphine) 2 mg IVPUSH Q2H PRN PRN Reason: Pain (severe 7-10) Stop: 07/02/16 17:01 Warfarin Sodium (Coumadin) 3 mg PO DAILY@1400 [facility] Last Admin: 07/03/16 13:00 Dose: 3 mg Warfarin Sodium (Coumadin) 2 mg PO MoFr@1400 [facility] - Problem List & Annotations (1) Acute on chronic kidney failure SNOMED Code(s): 621064306 Code(s): N17.9 - ACUTE KIDNEY FAILURE, UNSPECIFIED; N18.9 - CHRONIC KIDNEY DISEASE, UNSPECIFIED Status: Acute Current Visit: Yes (2) Sepsis SNOMED Code(s): 35916398 Code(s): A41.9 - SEPSIS, UNSPECIFIED ORGANISM Status: Acute Current Visit : Yes (3) UTI, Urinary tract infectious disease SNOMED Code(s): 10406404 Code(s): N39.0 - URINARY TRACT INFECTION, SITE NOT SPECIFIED Status: Acute Current Visit: Yes - Problem List Review Problem List Initiated/Reviewed/Updated: Yes - Plan Plan:: Patient seen and examined , agree with assessment and plan. For urosepsis patient was chamged to Ciprofloxacin iv adjusted to kidney function which covers the microbiology Acute on chronic kidney failure - no improvement , hold diuretics , iv fluids.
[2016-07-04] MEDS: Ciprofloxacin in D5W 200 MG in Premix Bag 1 BAG IV SCH ×4 (11:19→22:41)
[2016-07-04] MEDS: Metoprolol Tartrate 5 MG/5 ML SDV IVPUSH PRN ×2 (12:48→17:55)
[2016-07-04] MEDS: Acetaminophen/HYDROcodone 325-5 MG Tab PO PRN (12:49)
[2016-07-04] MEDS: Simvastatin 20 MG Tab PO SCH (20:26)
[2016-07-04] MEDS: guaiFENesin/Dextromethorphan 100-10 MG/5 ML Soln 10 ML Cup PO PRN (22:49)
[2016-07-05] MEDS: Sodium Chloride 0.9% 1,000 ML IV SCH ×2 (06:30→14:09)
[2016-07-05] MEDS: Omeprazole 20 MG Cap.CR PO SCH (06:32)
[2016-07-05] MEDS: Insulin Aspart 100 Units/ML 3 ML Pen SUBCUT SCH ×7 (06:33→21:58)
[2016-07-05] MEDS: Fish Oil/Omega-3 Fatty Acids 1 Gm Cap PO SCH (09:16)
[2016-07-05] MEDS: Insulin Glargine,Human Rec. Analog 100 Units/ML 3 ML Pen SUBCUT SCH (09:16)
[2016-07-05] MEDS: Carvedilol 25 MG Tab PO SCH ×2 (09:17→21:32)
[2016-07-05] MEDS: Allopurinol 100 MG Tab PO SCH ×2 (09:17→21:33)
--- NOTE | 2016-07-05 09:34 | PCM.PN ---
- General Info Date of Service: 07/05/16 Functional Status: Reports: pain controlled, tolerating diet - Review of Systems General: Reports: no symptoms HEENT: Reports: no symptoms Pulmonary: Reports: no symptoms Cardiovascular: Reports: no symptoms Gastrointestinal: Reports: No symptoms Genitourinary: Reports: no symptoms Musculoskeletal: Reports: no symptoms Skin: Reports: no symptoms Neurological: Reports: no symptoms Psychiatric: Reports: no symptoms - Patient Data Vitals - most recent: Last Vital Signs Temp 97.7 F 07/05/16 08:00 Pulse 99 07/05/16 09:17 Resp 16 07/05/16 08:00 BP 126/75 07/05/16 09:17 Pulse Ox 98 07/05/16 08:00 Weight - most recent: 116.6 kg I&O - last 24 hours: Intake & Output 07/04/16 07/05/16 07/05/16 22:59 06:59 14:59 Intake Total 2370 1650 Output Total 850 900 Balance 1520 750 Lab Results last 24 hrs: Laboratory Results - last 24 hr 07/04/16 07/04/16 07/04/16 Range/Units 11:59 16:11 20:12 WBC (4.0-11.0) K/uL RBC (4.50-5.90) M/uL Hgb (13.0-17.0) g/dL Hct (38.0-50.0) % MCV (80.0-98.0) fL MCH (27.0-32.0) pg MCHC (31.0-37.0) g/dL RDW Std Deviation (28.0-62.0) fl RDW Coeff of William (11.0-15.0) % Plt Count (150-400) K/uL MPV (7.40-12.00) fL Neut % (Auto) (48.0-80.0) % Lymph % (Auto) (16.0-40.0) % [place] % (Auto) (0.0-15.0) % Eos % (Auto) (0.0-7.0) % Baso % (Auto) (0.0-1.5) % Neut # (1.4-5.7) K/uL Lymph # (0.6-2.4) K/uL [place] # (0.0-0.8) K/uL Eos # (0.0-0.7) K/uL Baso # (0.0-0.1) K/uL Nucleated RBC % /100WBC Nucleated RBCs # K/uL INR (0.86-1.11) Sodium (136-146) mmol/L Potassium (3.5-5.1) mmol/L Chloride (98-110) mmol/L Carbon Dioxide (21-31) mmol/L BUN (6.0-23.0) mg/dL Creatinine (0.6-1.5) mg/dL Est Cr Clr Drug Dosing mL/min Estimated GFR (MDRD) ml/min Glucose (60-110) mg/dL POC Glucose 284 H 200 H 106 (60-110) mg/dL Calcium (8.8-10.8) mg/dL Phosphorus (2.4-4.7) mg/dL 07/05/16 07/05/16 07/05/16 Range/Units 04:51 04:51 04:51 WBC 9.99 (4.0-11.0) K/uL RBC 3.55 L (4.50-5.90) M/uL Hgb 11.2 L (13.0-17.0) g/dL Hct 34.2 L (38.0-50.0) % MCV 96.3 (80.0-98.0) fL MCH 31.5 (27.0-32.0) pg MCHC 32.7 (31.0-37.0) g/dL RDW Std Deviation 58.1 (28.0-62.0) fl RDW Coeff of William 17 H (11.0-15.0) % Plt Count 121 L (150-400) K/uL MPV 11.00 (7.40-12.00) fL Neut % (Auto) 89.1 H (48.0-80.0) % Lymph % (Auto) 2.4 L (16.0-40.0) % [place] % (Auto) 5.9 (0.0-15.0) % Eos % (Auto) 2.4 (0.0-7.0) % Baso % (Auto) 0.2 (0.0-1.5) % Neut # 8.9 H (1.4-5.7) K/uL Lymph # 0.2 L (0.6-2.4) K/uL [place] # 0.6 (0.0-0.8) K/uL Eos # 0.2 (0.0-0.7) K/uL Baso # 0.0 (0.0-0.1) K/uL Nucleated RBC % 0.0 /100WBC Nucleated RBCs # 0 K/uL INR 3.71 H (0.86-1.11) Sodium (136-146) mmol/L Potassium (3.5-5.1) mmol/L Chloride (98-110) mmol/L Carbon Dioxide (21-31) mmol/L BUN (6.0-23.0) mg/dL Creatinine (0.6-1.5) mg/dL Est Cr Clr Drug Dosing mL/min Estimated GFR (MDRD) ml/min Glucose (60-110) mg/dL POC Glucose (60-110) mg/dL Calcium (8.8-10.8) mg/dL Phosphorus 5.6 H (2.4-4.7) mg/dL 07/05/16 07/05/16 07/05/16 Range/Units 04:51 06:28 09:15 WBC (4.0-11.0) K/uL RBC (4.50-5.90) M/uL Hgb (13.0-17.0) g/dL Hct (38.0-50.0) % MCV (80.0-98.0) fL MCH (27.0-32.0) pg MCHC (31.0-37.0) g/dL RDW Std Deviation (28.0-62.0) fl RDW Coeff of William (11.0-15.0) % Plt Count (150-400) K/uL MPV (7.40-12.00) fL Neut % (Auto) (48.0-80.0) % Lymph % (Auto) (16.0-40.0) % [place] % (Auto) (0.0-15.0) % Eos % (Auto) (0.0-7.0) % Baso % (Auto) (0.0-1.5) % Neut # (1.4-5.7) K/uL Lymph # (0.6-2.4) K/uL [place] # (0.0-0.8) K/uL Eos # (0.0-0.7) K/uL Baso # (0.0-0.1) K/uL Nucleated RBC % /100WBC Nucleated RBCs # K/uL INR (0.86-1.11) Sodium 139 (136-146) mmol/L Potassium 3.5 (3.5-5.1) mmol/L Chloride 105 (98-110) mmol/L Carbon Dioxide 18 L (21-31) mmol/L BUN 83 H (6.0-23.0) mg/dL Creatinine 3.4 H (0.6-1.5) mg/dL Est Cr Clr Drug Dosing 20.63 mL/min Estimated GFR (MDRD) 17.9 ml/min Glucose 94 (60-110) mg/dL POC Glucose 113 H 165 H (60-110) mg/dL Calcium 8.6 L (8.8-10.8) mg/dL Phosphorus (2.4-4.7) mg/dL Med Orders - Current: Current Medications Acetaminophen/Hydrocodone Bitart (Lovely 325-5 Mg) 1 tab PO Q3H PRN PRN Reason: Pain Last Admin: 07/04/16 12:49 Dose: 1 tab Allopurinol (Zyloprim) 100 mg PO BID [facility] Last Admin: 07/05/16 09:17 Dose: 100 mg Bisacodyl (Dulcolax) 5 mg PO DAILY PRN PRN Reason: Constipation Carvedilol (Coreg) 25 mg PO BID [facility] Last Admin: 07/05/16 09:17 Dose: 25 mg Fish Oil (Fish Oil) 2 gm PO DAILY [facility] Last Admin: 07/05/16 09:16 Dose: 2 gm Guaifenesin/Dextromethorphan (Robitussin Dm) 10 ml PO Q6H PRN PRN Reason: Cough Last Admin: 07/04/16 22:49 Dose: 10 ml Sodium Chloride (Normal Saline) 1,000 mls @ 150 mls/hr IV ASDIRECTED [facility] Last Admin: 07/05/16 06:30 Dose: 150 mls/hr Ciprofloxacin/Dextrose 400 mg/ (Premix) 200 mls @ 200 mls/hr IV Q24H [facility] Insulin Aspart (Novolog) 0 unit SUBCUT ACBED [facility] PRN Reason: Protocol Last Admin: 07/05/16 06:33 Dose: Not Given Insulin Aspart (Novolog) 10 unit SUBCUT TIDAC [facility] Last Admin: 07/05/16 08:00 Dose: Not Given Insulin Glargine (Lantus Solostar) 20 units SUBCUT DAILY [facility] Last Admin: 07/05/16 09:16 Dose: 20 units Metoprolol Tartrate (Lopressor) 5 mg IVPUSH Q4H PRN PRN Reason: Tachycardia Last Admin: 07/04/16 17:55 Dose: 5 mg Omeprazole (Omeprazole) 20 mg PO ACBRK [facility] Last Admin: 07/05/16 06:32 Dose: 20 mg Ondansetron HCl (Zofran Odt) 4 mg PO Q4H PRN PRN Reason: nausea, able to take PO Simvastatin (Zocor) 20 mg PO BEDTIME [facility] Last Admin: 07/04/16 20:26 Dose: 20 mg Temazepam (Restoril) 15 mg PO BEDTIME PRN PRN Reason: Sleep Warfarin Sodium (Coumadin Ask) 1 each PO DAILY@1400 [facility] Last Admin: 07/04/16 14:46 Dose: Not Given Discontinued Medications Acetaminophen (Tylenol) 650 mg PO NOW ONE Stop: 07/01/16 13:48 Last Admin: 07/01/16 13:51 Dose: 650 mg Bumetanide (Bumex) 2 mg PO BID [facility] Last Admin: 07/04/16 10:19 Dose: Not Given Sodium Chloride (Normal Saline) 1,000 mls @ 999 mls/hr IV .Bolus ONE Stop: 07/01/16 14:25 Last Admin: 07/01/16 13:28 Dose: 999 mls/hr Sodium Chloride (Normal Saline) 1,000 mls @ 999 mls/hr IV STAT ONE Stop: 07/01/16 15:50 Last Admin: 07/01/16 14:53 Dose: 999 mls/hr Piperacillin Sod/Tazobactam (Sod 4.5 gm/ Sodium Chloride) 100 mls @ 100 mls/hr IV ONETIME ONE Stop: 07/01/16 15:59 Last Admin: 07/01/16 15:13 Dose: 100 mls/hr Piperacillin Sod/Tazobactam (Sod 2.25 gm/ Sodium Chloride) 50 mls @ 100 mls/hr IV Q6H [facility] Last Admin: 07/03/16 11:25 Dose: Not Given Sodium Chloride (Normal Saline) 1,000 mls @ 125 mls/hr IV ASDIRECTED [facility] Last Admin: 07/02/16 03:11 Dose: 125 mls/hr Ceftriaxone Sodium/Dextrose 1 (gm/ Premix) 50 mls @ 100 mls/hr IV Q24H [facility] Last Admin: 07/04/16 10:32 Dose: 100 mls/hr Ciprofloxacin/Dextrose 200 mg/ (Premix) 100 mls @ 100 mls/hr IV Q12H [facility] Last Admin: 07/04/16 22:41 Dose: 100 mls/hr Insulin Glargine (Lantus Solostar) 10 units SUBCUT DAILY [facility] Last Admin: 07/03/16 11:23 Dose: Not Given Metolazone (Zaroxolyn) 5 mg PO MoWeFr@0800 [facility] Last Admin: 07/03/16 14:28 Dose: 5 mg Metoprolol Tartrate (Lopressor) 5 mg IVPUSH Q4H PRN PRN Reason: Other Stop: 07/02/16 01:16 Last Admin: 07/01/16 20:02 Dose: 5 mg Morphine Sulfate (Morphine) 2 mg IVPUSH Q2H PRN PRN Reason: Pain (severe 7-10) Stop: 07/02/16 17:01 Warfarin Sodium (Coumadin) 3 mg PO DAILY@1400 [facility] Last Admin: 07/03/16 13:00 Dose: 3 mg Warfarin Sodium (Coumadin) 2 mg PO MoFr@1400 [facility] - Exam Quality Assessment: supplemental oxygen General: alert, oriented HEENT: Pupils equal, EOMI Neck: supple Lungs: Clear to auscultation, Normal respiratory effort Cardiovascular: regular rate, regular rhythm Abdomen: bowel sounds present, soft (Male) Exam: Other (urostomy) Back Exam: normal inspection Extremities: other (venous stasis changes) Skin: warm, dry Neurological: no new focal deficit Psy/Mental Status: alert, normal affect, normal mood - Problem List Review Problem List Initiated/Reviewed/Updated: Yes - My Orders Last 24 Hours: My Active Orders 07/05/16 12:00 Ciprofloxacin in D5W [Cipro in D5W 400 MG/200 ML] 400 mg Premix Bag 1 bag IV Q24H 03/02/17 05:11 CBC WITH AUTO DIFF [HEME] AM - Plan Plan:: urosepsis: was changed to Ciprofloxacin iv adjusted to kidney function which covers the microbiology Acute on chronic kidney failure - Improved to 3.4. continue IVF at 150 ml/hr. Hold diruetics CHF: monitor I/O. Chronic Gout: on allopurinol GERD: prilosec PT strengthening anticipate discharge 1-2 days.
[2016-07-05] MEDS: Ciprofloxacin in D5W 400 MG in Premix Bag 1 BAG IV SCH ×2 (11:38)
[2016-07-05] MEDS ORDERED: Albuterol/Ipratropium 3.0-0.5 MG/3 ML Neb Soln NEB PRN (11:54)
[2016-07-05] MEDS: Acetaminophen 325 MG Tab PO PRN (12:28)
[2016-07-05] MEDS: Benzonatate 100 MG Cap PO SCH ×2 (12:28→21:32)
[2016-07-05] MEDS: Sodium Chloride 0.45% 1,000 ML IV SCH ×2 (15:36→22:23)
[2016-07-05] MEDS: oxyCODONE ER 10 MG TAB.ER PO SCH (21:32)
[2016-07-05] MEDS: Simvastatin 20 MG Tab PO SCH (21:33)
[2016-07-06] MEDS: Sodium Chloride 0.45% 1,000 ML IV SCH ×2 (04:25→11:20)
[2016-07-06] MEDS: Insulin Aspart 100 Units/ML 3 ML Pen SUBCUT SCH ×7 (07:51→21:01)
[2016-07-06] MEDS: Omeprazole 20 MG Cap.CR PO SCH (08:20)
[2016-07-06 08:34] LABS: CHLORIDE,CL 107 mmol/L (98-110); SODIUM,NA 139 mmol/L (136-146)
[2016-07-06] MEDS: oxyCODONE ER 10 MG TAB.ER PO SCH (08:54)
[2016-07-06] MEDS: Fish Oil/Omega-3 Fatty Acids 1 Gm Cap PO SCH (08:54)
[2016-07-06] MEDS: Allopurinol 100 MG Tab PO SCH ×2 (08:55→21:02)
[2016-07-06] MEDS: Benzonatate 100 MG Cap PO SCH (08:55)
[2016-07-06] MEDS: Carvedilol 25 MG Tab PO SCH ×2 (08:57→21:00)
[2016-07-06] MEDS: Insulin Glargine,Human Rec. Analog 100 Units/ML 3 ML Pen SUBCUT SCH (09:00)
--- NOTE | 2016-07-06 09:10 | PCM.PN ---
<Dasha Barrios - Last Filed: 07/06/16 09:26> - General Info Date of Service: 07/06/16 Functional Status: Reports: pain controlled, tolerating diet - Review of Systems General: Reports: no symptoms HEENT: Reports: no symptoms Pulmonary: Reports: no symptoms Cardiovascular: Reports: no symptoms Gastrointestinal: Reports: No symptoms Genitourinary: Reports: no symptoms Musculoskeletal: Reports: no symptoms Skin: Reports: no symptoms Neurological: Reports: no symptoms Psychiatric: Reports: no symptoms - Patient Data Vitals - most recent: Last Vital Signs Temp 97.5 F 07/06/16 04:00 Pulse 102 H 07/06/16 08:57 Resp 22 H 07/06/16 04:00 BP 141/67 H 07/06/16 08:57 Pulse Ox 92 L 07/06/16 04:00 Weight - most recent: 265 lb 10.512 oz I&O - last 24 hours: Intake & Output 07/05/16 07/06/16 07/06/16 22:59 06:59 14:59 Intake Total 1920 1700 Output Total 1000 850 Balance 920 850 Lab Results last 24 hrs: Laboratory Results - last 24 hr 07/05/16 07/06/16 07/06/16 Range/Units 09:15 04:18 04:18 WBC 8.72 (4.0-11.0) K/uL RBC 3.61 L (4.50-5.90) M/uL Hgb 11.5 L (13.0-17.0) g/dL Hct 34.6 L (38.0-50.0) % MCV 95.8 (80.0-98.0) fL MCH 31.9 (27.0-32.0) pg MCHC 33.2 (31.0-37.0) g/dL RDW Std Deviation 56.9 (28.0-62.0) fl RDW Coeff of William 16 H (11.0-15.0) % Plt Count 142 L (150-400) K/uL MPV 11.60 (7.40-12.00) fL Neut % (Auto) 86.6 H (48.0-80.0) % Lymph % (Auto) 4.5 L (16.0-40.0) % [place] % (Auto) 5.6 (0.0-15.0) % Eos % (Auto) 3.0 (0.0-7.0) % Baso % (Auto) 0.3 (0.0-1.5) % Neut # 7.6 H (1.4-5.7) K/uL Lymph # 0.4 L (0.6-2.4) K/uL [place]cho # 0.5 (0.0-0.8) K/uL Eos # 0.3 (0.0-0.7) K/uL Baso # 0.0 (0.0-0.1) K/uL Nucleated RBC % 0.0 /100WBC Nucleated RBCs # 0 K/uL INR (0.86-1.11) Sodium (136-146) mmol/L Potassium (3.5-5.1) mmol/L Chloride (98-110) mmol/L Carbon Dioxide (21-31) mmol/L BUN (6.0-23.0) mg/dL Creatinine (0.6-1.5) mg/dL Est Cr Clr Drug Dosing Estimated GFR (MDRD) ml/min Glucose (60-110) mg/dL POC Glucose 165 H (60-110) mg/dL Calcium (8.8-10.8) mg/dL Phosphorus 5.2 H (2.4-4.7) mg/dL Magnesium (1.5-2.3) mEq/L 07/06/16 07/06/16 Range/Units 04:48 04:48 WBC (4.0-11.0) K/uL RBC (4.50-5.90) M/uL Hgb (13.0-17.0) g/dL Hct (38.0-50.0) % MCV (80.0-98.0) fL MCH (27.0-32.0) pg MCHC (31.0-37.0) g/dL RDW Std Deviation (28.0-62.0) fl RDW Coeff of William (11.0-15.0) % Plt Count (150-400) K/uL MPV (7.40-12.00) fL Neut % (Auto) (48.0-80.0) % Lymph % (Auto) (16.0-40.0) % [place] % (Auto) (0.0-15.0) % Eos % (Auto) (0.0-7.0) % Baso % (Auto) (0.0-1.5) % Neut # (1.4-5.7) K/uL Lymph # (0.6-2.4) K/uL [place]cho # (0.0-0.8) K/uL Eos # (0.0-0.7) K/uL Baso # (0.0-0.1) K/uL Nucleated RBC % /100WBC Nucleated RBCs # K/uL INR 3.77 H (0.86-1.11) Sodium 139 (136-146) mmol/L Potassium 3.4 L (3.5-5.1) mmol/L Chloride 107 (98-110) mmol/L Carbon Dioxide 17 L (21-31) mmol/L BUN 81 H (6.0-23.0) mg/dL Creatinine 3.0 H (0.6-1.5) mg/dL Est Cr Clr Drug Dosing TNP Estimated GFR (MDRD) 20.7 ml/min Glucose 143 H (60-110) mg/dL POC Glucose (60-110) mg/dL Calcium 8.3 L (8.8-10.8) mg/dL Phosphorus (2.4-4.7) mg/dL Magnesium 1.6 (1.5-2.3) mEq/L Med Orders - Current: Current Medications Acetaminophen (Tylenol) 650 mg PO Q4H PRN PRN Reason: Pain Last Admin: 07/05/16 12:28 Dose: 650 mg Acetaminophen/Hydrocodone Bitart ([place] 325-5 Mg) 1 tab PO Q3H PRN PRN Reason: Pain Last Admin: 07/04/16 12:49 Dose: 1 tab Albuterol/Ipratropium (Duoneb 3.0-0.5 Mg/3 Ml) 3 ml NEB Q4HRRT PRN PRN Reason: Shortness of Breath Allopurinol (Zyloprim) 100 mg PO BID [facility] Last Admin: 07/06/16 08:55 Dose: 100 mg Benzonatate (Tessalon Perles) 100 mg PO BID [facility] Last Admin: 07/06/16 08:55 Dose: 100 mg Bisacodyl (Dulcolax) 5 mg PO DAILY PRN PRN Reason: Constipation Carvedilol (Coreg) 25 mg PO BID [facility] Last Admin: 07/06/16 08:57 Dose: 25 mg Fish Oil (Fish Oil) 2 gm PO DAILY [facility] Last Admin: 07/06/16 08:54 Dose: 2 gm Ciprofloxacin/Dextrose 400 mg/ (Premix) 200 mls @ 200 mls/hr IV Q24H [facility] Last Admin: 07/05/16 11:38 Dose: 200 mls/hr Sodium Chloride (Sodium Chloride 0.45%) 1,000 mls @ 150 mls/hr IV ASDIRECTED [facility] Last Admin: 07/06/16 04:25 Dose: 150 mls/hr Insulin Aspart (Novolog) 0 unit SUBCUT ACBED [facility] PRN Reason: Protocol Last Admin: 07/06/16 07:51 Dose: 2 units Insulin Aspart (Novolog) 10 unit SUBCUT TIDAC [facility] Last Admin: 07/06/16 07:52 Dose: 10 units Insulin Glargine (Lantus Solostar) 20 units SUBCUT DAILY [facility] Last Admin: 07/06/16 09:00 Dose: 20 units Metoprolol Tartrate (Lopressor) 5 mg IVPUSH Q4H PRN PRN Reason: Tachycardia Last Admin: 07/04/16 17:55 Dose: 5 mg Omeprazole (Omeprazole) 20 mg PO ACBRK [facility] Last Admin: 07/06/16 08:20 Dose: 20 mg Ondansetron HCl (Zofran Odt) 4 mg PO Q4H PRN PRN Reason: nausea, able to take PO Oxycodone HCl (Oxycontin) 10 mg PO Q12HR [facility] Last Admin: 07/06/16 08:54 Dose: 10 mg Simvastatin (Zocor) 20 mg PO BEDTIME [facility] Last Admin: 07/05/16 21:33 Dose: 20 mg Temazepam (Restoril) 15 mg PO BEDTIME PRN PRN Reason: Sleep Warfarin Sodium (Coumadin Ask) 1 each PO DAILY@1400 [facility] Last Admin: 07/05/16 14:05 Dose: Not Given Discontinued Medications Acetaminophen (Tylenol) 650 mg PO NOW ONE Stop: 07/01/16 13:48 Last Admin: 07/01/16 13:51 Dose: 650 mg Bumetanide (Bumex) 2 mg PO BID [facility] Last Admin: 07/04/16 10:19 Dose: Not Given Guaifenesin/Dextromethorphan (Robitussin Dm) 10 ml PO Q6H PRN PRN Reason: Cough Last Admin: 07/04/16 22:49 Dose: 10 ml Sodium Chloride (Normal Saline) 1,000 mls @ 999 mls/hr IV .Bolus ONE Stop: 07/01/16 14:25 Last Admin: 07/01/16 13:28 Dose: 999 mls/hr Sodium Chloride (Normal Saline) 1,000 mls @ 999 mls/hr IV STAT ONE Stop: 07/01/16 15:50 Last Admin: 07/01/16 14:53 Dose: 999 mls/hr Piperacillin Sod/Tazobactam (Sod 4.5 gm/ Sodium Chloride) 100 mls @ 100 mls/hr IV ONETIME ONE Stop: 07/01/16 15:59 Last Admin: 07/01/16 15:13 Dose: 100 mls/hr Piperacillin Sod/Tazobactam (Sod 2.25 gm/ Sodium Chloride) 50 mls @ 100 mls/hr IV Q6H [facility] Last Admin: 07/03/16 11:25 Dose: Not Given Sodium Chloride (Normal Saline) 1,000 mls @ 125 mls/hr IV ASDIRECTED [facility] Last Admin: 07/02/16 03:11 Dose: 125 mls/hr Sodium Chloride (Normal Saline) 1,000 mls @ 150 mls/hr IV ASDIRECTED [facility] Last Admin: 07/05/16 14:09 Dose: 150 mls/hr Ceftriaxone Sodium/Dextrose 1 (gm/ Premix) 50 mls @ 100 mls/hr IV Q24H [facility] Last Admin: 07/04/16 10:32 Dose: 100 mls/hr Ciprofloxacin/Dextrose 200 mg/ (Premix) 100 mls @ 100 mls/hr IV Q12H [facility] Last Admin: 07/04/16 22:41 Dose: 100 mls/hr Insulin Glargine (Lantus Solostar) 10 units SUBCUT DAILY [facility] Last Admin: 07/03/16 11:23 Dose: Not Given Metolazone (Zaroxolyn) 5 mg PO MoWeFr@0800 [facility] Last Admin: 07/03/16 14:28 Dose: 5 mg Metoprolol Tartrate (Lopressor) 5 mg IVPUSH Q4H PRN PRN Reason: Other Stop: 07/02/16 01:16 Last Admin: 07/01/16 20:02 Dose: 5 mg Morphine Sulfate (Morphine) 2 mg IVPUSH Q2H PRN PRN Reason: Pain (severe 7-10) Stop: 07/02/16 17:01 Warfarin Sodium (Coumadin) 3 mg PO DAILY@1400 [facility] Last Admin: 07/03/16 13:00 Dose: 3 mg Warfarin Sodium (Coumadin) 2 mg PO MoFr@1400 [facility] - Exam Quality Assessment: supplemental oxygen General: alert, oriented, cooperative HEENT: Pupils equal, EOMI Neck: supple, trachea midline Lungs: Normal respiratory effort, Decreased breath sounds Cardiovascular: regular rate, regular rhythm Abdomen: bowel sounds present, soft Extremities: other (venous statis changes with +3 edema unchanged. ) Peripheral Pulses: 2+: dorsalis pedis (L), dorsalis pedis (R) Skin: warm, dry, intact Neurological: no new focal deficit Psy/Mental Status: alert, normal affect, normal mood - Problem List Review Problem List Initiated/Reviewed/Updated: Yes - My Orders Last 24 Hours: My Active Orders 07/05/16 11:17 Acetaminophen [Tylenol] 650 mg PO Q4H PRN 07/05/16 11:54 Albuterol/Ipratropium [DuoNeb 3.0-0.5 MG/3 ML] 3 ml NEB Q4HRRT PRN 07/05/16 11:55 RT Aerosol Therapy [RC] ASDIRECTED 07/05/16 12:00 Benzonatate [Tessalon Perles] 100 mg PO BID Ciprofloxacin in D5W [Cipro in D5W 400 MG/200 ML] 400 mg Premix Bag 1 bag IV Q24H - Plan Plan:: urosepsis: was changed to Ciprofloxacin iv adjusted to kidney function which covers the microbiology Acute on chronic kidney failure - Improved to 3.0 continue IVF at 150 ml/hr. Hold diruetics CHF: monitor I/O. Chronic lower extremity edema: stable. Chronic Gout: on allopurinol GERD: prilosec PT strengthening anticipate discharge 1-2 days pending renal improvement. <Don Peterson - Last Filed: 07/06/16 13:03> - Patient Data Vitals - most recent: Last Vital Signs Temp 98.1 F 07/06/16 08:00 Pulse 102 H 07/06/16 08:57 Resp 20 07/06/16 08:00 BP 141/67 H 07/06/16 08:57 Pulse Ox 96 07/06/16 08:00 I&O - last 24 hours: Intake & Output 07/05/16 07/06/16 07/06/16 22:59 06:59 14:59 Intake Total 1920 1700 Output Total 1000 850 Balance 920 850 Lab Results last 24 hrs: Laboratory Results - last 24 hr 07/06/16 07/06/16 07/06/16 Range/Units 04:18 04:18 04:48 WBC 8.72 (4.0-11.0) K/uL RBC 3.61 L (4.50-5.90) M/uL Hgb 11.5 L (13.0-17.0) g/dL Hct 34.6 L (38.0-50.0) % MCV 95.8 (80.0-98.0) fL MCH 31.9 (27.0-32.0) pg MCHC 33.2 (31.0-37.0) g/dL RDW Std Deviation 56.9 (28.0-62.0) fl RDW Coeff of William 16 H (11.0-15.0) % Plt Count 142 L (150-400) K/uL MPV 11.60 (7.40-12.00) fL Neut % (Auto) 86.6 H (48.0-80.0) % Lymph % (Auto) 4.5 L (16.0-40.0) % [place] % (Auto) 5.6 (0.0-15.0) % Eos % (Auto) 3.0 (0.0-7.0) % Baso % (Auto) 0.3 (0.0-1.5) % Neut # 7.6 H (1.4-5.7) K/uL Lymph # 0.4 L (0.6-2.4) K/uL [place] # 0.5 (0.0-0.8) K/uL Eos # 0.3 (0.0-0.7) K/uL Baso # 0.0 (0.0-0.1) K/uL Nucleated RBC % 0.0 /100WBC Nucleated RBCs # 0 K/uL INR 3.77 H (0.86-1.11) Sodium (136-146) mmol/L Potassium (3.5-5.1) mmol/L Chloride (98-110) mmol/L Carbon Dioxide (21-31) mmol/L BUN (6.0-23.0) mg/dL Creatinine (0.6-1.5) mg/dL Est Cr Clr Drug Dosing Estimated GFR (MDRD) ml/min Glucose (60-110) mg/dL POC Glucose (60-110) mg/dL Calcium (8.8-10.8) mg/dL Phosphorus 5.2 H (2.4-4.7) mg/dL Magnesium (1.5-2.3) mEq/L 07/06/16 07/06/16 Range/Units 04:48 12:02 WBC (4.0-11.0) K/uL RBC (4.50-5.90) M/uL Hgb (13.0-17.0) g/dL Hct (38.0-50.0) % MCV (80.0-98.0) fL MCH (27.0-32.0) pg MCHC (31.0-37.0) g/dL RDW Std Deviation (28.0-62.0) fl RDW Coeff of William (11.0-15.0) % Plt Count (150-400) K/uL MPV (7.40-12.00) fL Neut % (Auto) (48.0-80.0) % Lymph % (Auto) (16.0-40.0) % [place] % (Auto) (0.0-15.0) % Eos % (Auto) (0.0-7.0) % Baso % (Auto) (0.0-1.5) % Neut # (1.4-5.7) K/uL Lymph # (0.6-2.4) K/uL [place] # (0.0-0.8) K/uL Eos # (0.0-0.7) K/uL Baso # (0.0-0.1) K/uL Nucleated RBC % /100WBC Nucleated RBCs # K/uL INR (0.86-1.11) Sodium 139 (136-146) mmol/L Potassium 3.4 L (3.5-5.1) mmol/L Chloride 107 (98-110) mmol/L Carbon Dioxide 17 L (21-31) mmol/L BUN 81 H (6.0-23.0) mg/dL Creatinine 3.0 H (0.6-1.5) mg/dL Est Cr Clr Drug Dosing TNP Estimated GFR (MDRD) 20.7 ml/min Glucose 143 H (60-110) mg/dL POC Glucose 181 H (60-110) mg/dL Calcium 8.3 L (8.8-10.8) mg/dL Phosphorus (2.4-4.7) mg/dL Magnesium 1.6 (1.5-2.3) mEq/L Med Orders - Current: Current Medications Acetaminophen (Tylenol) 650 mg PO Q4H PRN PRN Reason: Pain Last Admin: 07/05/16 12:28 Dose: 650 mg Acetaminophen/Hydrocodone Bitart ([place] 325-5 Mg) 1 tab PO Q3H PRN PRN Reason: Pain Last Admin: 07/04/16 12:49 Dose: 1 tab Albuterol/Ipratropium (Duoneb 3.0-0.5 Mg/3 Ml) 3 ml NEB Q4HRRT PRN PRN Reason: Shortness of Breath Allopurinol (Zyloprim) 100 mg PO BID [facility] Last Admin: 07/06/16 08:55 Dose: 100 mg Bisacodyl (Dulcolax) 5 mg PO DAILY PRN PRN Reason: Constipation Carvedilol (Coreg) 25 mg PO BID [facility] Last Admin: 07/06/16 08:57 Dose: 25 mg Fish Oil (Fish Oil) 2 gm PO DAILY [facility] Last Admin: 07/06/16 08:54 Dose: 2 gm Ciprofloxacin/Dextrose 400 mg/ (Premix) 200 mls @ 200 mls/hr IV Q24H [facility] Last Admin: 07/06/16 12:09 Dose: 200 mls/hr Insulin Aspart (Novolog) 0 unit SUBCUT ACBED [facility] PRN Reason: Protocol Last Admin: 07/06/16 07:51 Dose: 2 units Insulin Aspart (Novolog) 10 unit SUBCUT TIDAC [facility] Last Admin: 07/06/16 07:52 Dose: 10 units Insulin Glargine (Lantus Solostar) 20 units SUBCUT DAILY [facility] Last Admin: 07/06/16 09:00 Dose: 20 units Metoprolol Tartrate (Lopressor) 5 mg IVPUSH Q4H PRN PRN Reason: Tachycardia Last Admin: 07/04/16 17:55 Dose: 5 mg Omeprazole (Omeprazole) 20 mg PO ACBRK [facility] Last Admin: 07/06/16 08:20 Dose: 20 mg Ondansetron HCl (Zofran Odt) 4 mg PO Q4H PRN PRN Reason: nausea, able to take PO Potassium Chloride (Klor-Con M20) 40 meq PO DAILY [facility] Last Admin: 07/06/16 09:53 Dose: 40 meq Simvastatin (Zocor) 20 mg PO BEDTIME [facility] Last Admin: 07/05/16 21:33 Dose: 20 mg Temazepam (Restoril) 15 mg PO BEDTIME PRN PRN Reason: Sleep Warfarin Sodium (Coumadin Ask) 1 each PO DAILY@1400 [facility] Last Admin: 07/05/16 14:05 Dose: Not Given Discontinued Medications Acetaminophen (Tylenol) 650 mg PO NOW ONE Stop: 07/01/16 13:48 Last Admin: 07/01/16 13:51 Dose: 650 mg Benzonatate (Tessalon Perles) 100 mg PO BID [facility] Last Admin: 07/06/16 08:55 Dose: 100 mg Bumetanide (Bumex) 2 mg PO BID [facility] Last Admin: 07/04/16 10:19 Dose: Not Given Furosemide (Lasix) 40 mg IVPUSH NOW ONE Stop: 07/06/16 11:58 Last Admin: 07/06/16 12:11 Dose: 40 mg Guaifenesin/Dextromethorphan (Robitussin Dm) 10 ml PO Q6H PRN PRN Reason: Cough Last Admin: 07/04/16 22:49 Dose: 10 ml Sodium Chloride (Normal Saline) 1,000 mls @ 999 mls/hr IV .Bolus ONE Stop: 07/01/16 14:25 Last Admin: 07/01/16 13:28 Dose: 999 mls/hr Sodium Chloride (Normal Saline) 1,000 mls @ 999 mls/hr IV STAT ONE Stop: 07/01/16 15:50 Last Admin: 07/01/16 14:53 Dose: 999 mls/hr Piperacillin Sod/Tazobactam (Sod 4.5 gm/ Sodium Chloride) 100 mls @ 100 mls/hr IV ONETIME ONE Stop: 07/01/16 15:59 Last Admin: 07/01/16 15:13 Dose: 100 mls/hr Piperacillin Sod/Tazobactam (Sod 2.25 gm/ Sodium Chloride) 50 mls @ 100 mls/hr IV Q6H [facility] Last Admin: 07/03/16 11:25 Dose: Not Given Sodium Chloride (Normal Saline) 1,000 mls @ 125 mls/hr IV ASDIRECTED [facility] Last Admin: 07/02/16 03:11 Dose: 125 mls/hr Sodium Chloride (Normal Saline) 1,000 mls @ 150 mls/hr IV ASDIRECTED [facility] Last Admin: 07/05/16 14:09 Dose: 150 mls/hr Ceftriaxone Sodium/Dextrose 1 (gm/ Premix) 50 mls @ 100 mls/hr IV Q24H [facility] Last Admin: 07/04/16 10:32 Dose: 100 mls/hr Ciprofloxacin/Dextrose 200 mg/ (Premix) 100 mls @ 100 mls/hr IV Q12H [facility] Last Admin: 07/04/16 22:41 Dose: 100 mls/hr Sodium Chloride (Sodium Chloride 0.45%) 1,000 mls @ 150 mls/hr IV ASDIRECTED [facility] Last Admin: 07/06/16 11:20 Dose: 150 mls/hr Insulin Glargine (Lantus Solostar) 10 units SUBCUT DAILY [facility] Last Admin: 07/03/16 11:23 Dose: Not Given Metolazone (Zaroxolyn) 5 mg PO MoWeFr@0800 [facility] Last Admin: 07/03/16 14:28 Dose: 5 mg Metoprolol Tartrate (Lopressor) 5 mg IVPUSH Q4H PRN PRN Reason: Other Stop: 07/02/16 01:16 Last Admin: 07/01/16 20:02 Dose: 5 mg Morphine Sulfate (Morphine) 2 mg IVPUSH Q2H PRN PRN Reason: Pain (severe 7-10) Stop: 07/02/16 17:01 Oxycodone HCl (Oxycontin) 10 mg PO Q12HR [facility] Last Admin: 07/06/16 08:54 Dose: 10 mg Warfarin Sodium (Coumadin) 3 mg PO DAILY@1400 [facility] Last Admin: 07/03/16 13:00 Dose: 3 mg Warfarin Sodium (Coumadin) 2 mg PO MoFr@1400 [facility] - Problem List & Annotations (1) Acute on chronic kidney failure SNOMED Code(s): 899182001 Code(s): N17.9 - ACUTE KIDNEY FAILURE, UNSPECIFIED; N18.9 - CHRONIC KIDNEY DISEASE, UNSPECIFIED Status: Acute Current Visit: Yes (2) Sepsis SNOMED Code(s): 18164623 Code(s): A41.9 - SEPSIS, UNSPECIFIED ORGANISM Status: Acute Current Visit : Yes (3) UTI, Urinary tract infectious disease SNOMED Code(s): 19424925 Code(s): N39.0 - URINARY TRACT INFECTION, SITE NOT SPECIFIED Status: Acute Current Visit: Yes - My Orders Last 24 Hours: My Active Orders 07/06/16 11:58 CXR [Chest 1V Frontal] [CR] Routine 07/06/16 16:00 BASIC METABOLIC PANEL,BMP [CHEM] Routine 07/07/16 05:30 INR,PT,PROTHROMBIN TIME [COAG] DAILY 07/08/16 05:30 INR,PT,PROTHROMBIN TIME [COAG] DAILY 07/09/16 05:30 INR,PT,PROTHROMBIN TIME [COAG] DAILY 07/10/16 05:30 INR,PT,PROTHROMBIN TIME [COAG] DAILY 07/11/16 05:30 INR,PT,PROTHROMBIN TIME [COAG] DAILY - Plan Plan:: Patient had increased SOb during the day ,bloating , IV fluids were held . He had about 2 l positive I/o for the past few days . It was ordered CXr to evaluate for pulm congetion . Iv lasix 40 mg iv repeat BMp at 4 pm Also during the night he had some increased confusion . Will held oxycodone ER and tessalon . Will reevaluate
[2016-07-06] MEDS: Potassium Chloride 20 MEQ Tab.ER PO SCH (09:53)
[2016-07-06] MEDS ORDERED: Furosemide 40 MG/4 ML VIAL IVPUSH ONE (11:57)
[2016-07-06] MEDS: Ciprofloxacin in D5W 400 MG in Premix Bag 1 BAG IV SCH ×2 (12:09)
--- NOTE | 2016-07-06 14:34 | CR ---
EXAMINATION: Portable chest radiograph. HISTORY: Evaluate for CHF. FINDINGS: The trachea is midline. The heart is mildly prominent in size. There are low lung volumes. Mild biba silar atelectasis or infiltrate is not excluded. No definite pleural effusion. No pneumothorax. Osseous structures appear unremarkable. IMPRESSION: Mild bibasilar atelectasis and/or infiltrate.
[2016-07-06] MEDS: Piperacillin/Tazobactam 3.375 GM in Sodium Chloride 0.9% 50 ML IV SCH ×2 (15:50→21:04)
[2016-07-06] MEDS ORDERED: Potassium Chloride 20 MEQ Tab.ER PO ONE (18:53)
[2016-07-06] MEDS ORDERED: Albuterol/Ipratropium 3.0-0.5 MG/3 ML Neb Soln NEB PRN (19:21)
[2016-07-06] MEDS: methylPREDNISolone Sodium Succinate 40 MG/1 ML SDV IVPUSH SCH (20:27)
[2016-07-06] MEDS: Simvastatin 20 MG Tab PO SCH (21:02)
[2016-07-07] MEDS ORDERED: Lactulose Soln 10 GM/15 ML 15 ML UD Cup PO ONE (02:44)
[2016-07-07] MEDS: methylPREDNISolone Sodium Succinate 40 MG/1 ML SDV IVPUSH SCH ×3 (03:21→18:33)
[2016-07-07] MEDS: Piperacillin/Tazobactam 3.375 GM in Sodium Chloride 0.9% 50 ML IV SCH ×2 (03:28→10:17)
[2016-07-07] MEDS: Metoprolol Tartrate 5 MG/5 ML SDV IVPUSH PRN ×2 (06:58→14:50)
[2016-07-07] MEDS: Omeprazole 20 MG Cap.CR PO SCH (06:58)
[2016-07-07] MEDS: Insulin Aspart 100 Units/ML 3 ML Pen SUBCUT SCH ×7 (07:30→20:32)
[2016-07-07] MEDS: Allopurinol 100 MG Tab PO SCH ×2 (08:21→20:29)
[2016-07-07] MEDS: Fish Oil/Omega-3 Fatty Acids 1 Gm Cap PO SCH (08:21)
[2016-07-07] MEDS: Carvedilol 25 MG Tab PO SCH ×2 (08:21→20:28)
[2016-07-07] MEDS: Insulin Glargine,Human Rec. Analog 100 Units/ML 3 ML Pen SUBCUT SCH (08:22)
[2016-07-07] MEDS: Potassium Chloride 20 MEQ Tab.ER PO SCH (08:35)
--- NOTE | 2016-07-07 08:49 | PCM.PN ---
<Dasha Barrios - Last Filed: 07/07/16 10:40> - General Info Date of Service: 07/07/16 Subjective Update: He had episode of lethargy, difficulty arousing, confusion. IVF held. He was given I.V lasix. CXR negative for CHF. Head CT negative. Oxycodone ER held.His ABG revealed acidosis. He was transferred to ICU started on steroids and was kept on BIPAP overnight. This morning he feels better. He still has dry cough but does not feel sob. - Review of Systems General: Reports: no symptoms HEENT: Reports: no symptoms Pulmonary: Reports: no symptoms Cardiovascular: Reports: no symptoms Gastrointestinal: Reports: No symptoms Musculoskeletal: Reports: no symptoms Skin: Reports: no symptoms Neurological: Reports: no symptoms Psychiatric: Reports: no symptoms - Patient Data Vitals - most recent: Last Vital Signs Temp 97.1 F 07/07/16 04:00 Pulse 116 H 07/07/16 08:21 Resp 18 07/07/16 07:00 BP 125/80 07/07/16 08:21 Pulse Ox 92 L 07/07/16 07:00 Weight - most recent: 278 lb 10.629 oz I&O - last 24 hours: Intake & Output 07/06/16 07/07/16 07/07/16 22:59 06:59 14:59 Intake Total 1500 600 Output Total 870 800 Balance 630 -200 Lab Results last 24 hrs: Laboratory Results - last 24 hr 07/06/16 07/06/16 07/06/16 Range/Units 04:48 12:02 16:15 WBC (4.0-11.0) K/uL RBC (4.50-5.90) M/uL Hgb (13.0-17.0) g/dL Hct (38.0-50.0) % MCV (80.0-98.0) fL MCH (27.0-32.0) pg MCHC (31.0-37.0) g/dL RDW Std Deviation (28.0-62.0) fl RDW Coeff of William (11.0-15.0) % Plt Count (150-400) K/uL MPV (7.40-12.00) fL Neut % (Auto) (48.0-80.0) % Lymph % (Auto) (16.0-40.0) % Green % (Auto) (0.0-15.0) % Eos % (Auto) (0.0-7.0) % Baso % (Auto) (0.0-1.5) % Neut # (1.4-5.7) K/uL Lymph # (0.6-2.4) K/uL Green # (0.0-0.8) K/uL Eos # (0.0-0.7) K/uL Baso # (0.0-0.1) K/uL Nucleated RBC % /100WBC Nucleated RBCs # K/uL INR (0.86-1.11) ABG pH (7.35-7.45) ABG pCO2 (35-45) mmHG ABG pO2 (75-100) mmHG ABG HCO3 (22-26) mEq/L ABG Total CO2 ABG Base Excess (-2.0-2.0) Lactate (0.20-2.00) mmol/L Sodium 139 139 (136-146) mmol/L Potassium 3.4 L 3.4 L (3.5-5.1) mmol/L Chloride 107 105 (98-110) mmol/L Carbon Dioxide 17 L 23 (21-31) mmol/L BUN 81 H 80 H (6.0-23.0) mg/dL Creatinine 3.0 H 3.0 H (0.6-1.5) mg/dL Est Cr Clr Drug Dosing TNP 23.38 Estimated GFR (MDRD) 20.7 20.7 ml/min Glucose 143 H 123 H (60-110) mg/dL POC Glucose 181 H (60-110) mg/dL Calcium 8.3 L 8.9 (8.8-10.8) mg/dL Magnesium 1.6 (1.5-2.3) mEq/L Ammonia (14-68) UG/DL Lactate Dehydrogenase (125-220) IU/L 07/06/16 07/06/16 07/06/16 Range/Units 16:15 16:38 17:37 WBC (4.0-11.0) K/uL RBC (4.50-5.90) M/uL Hgb (13.0-17.0) g/dL Hct (38.0-50.0) % MCV (80.0-98.0) fL MCH (27.0-32.0) pg MCHC (31.0-37.0) g/dL RDW Std Deviation (28.0-62.0) fl RDW Coeff of William (11.0-15.0) % Plt Count (150-400) K/uL MPV (7.40-12.00) fL Neut % (Auto) (48.0-80.0) % Lymph % (Auto) (16.0-40.0) % Green % (Auto) (0.0-15.0) % Eos % (Auto) (0.0-7.0) % Baso % (Auto) (0.0-1.5) % Neut # (1.4-5.7) K/uL Lymph # (0.6-2.4) K/uL Green # (0.0-0.8) K/uL Eos # (0.0-0.7) K/uL Baso # (0.0-0.1) K/uL Nucleated RBC % /100WBC Nucleated RBCs # K/uL INR (0.86-1.11) ABG pH (7.35-7.45) ABG pCO2 (35-45) mmHG ABG pO2 (75-100) mmHG ABG HCO3 (22-26) mEq/L ABG Total CO2 ABG Base Excess (-2.0-2.0) Lactate 0.5 (0.20-2.00) mmol/L Sodium (136-146) mmol/L Potassium (3.5-5.1) mmol/L Chloride (98-110) mmol/L Carbon Dioxide (21-31) mmol/L BUN (6.0-23.0) mg/dL Creatinine (0.6-1.5) mg/dL Est Cr Clr Drug Dosing Estimated GFR (MDRD) ml/min Glucose (60-110) mg/dL POC Glucose 124 H (60-110) mg/dL Calcium (8.8-10.8) mg/dL Magnesium (1.5-2.3) mEq/L Ammonia (14-68) UG/DL Lactate Dehydrogenase 192 (125-220) IU/L 03/02/17 03/02/17 03/02/17 Range/Units 19:32 19:50 20:58 WBC (4.0-11.0) K/uL RBC (4.50-5.90) M/uL Hgb (13.0-17.0) g/dL Hct (38.0-50.0) % MCV (80.0-98.0) fL MCH (27.0-32.0) pg MCHC (31.0-37.0) g/dL RDW Std Deviation (28.0-62.0) fl RDW Coeff of William (11.0-15.0) % Plt Count (150-400) K/uL MPV (7.40-12.00) fL Neut % (Auto) (48.0-80.0) % Lymph % (Auto) (16.0-40.0) % Green % (Auto) (0.0-15.0) % Eos % (Auto) (0.0-7.0) % Baso % (Auto) (0.0-1.5) % Neut # (1.4-5.7) K/uL Lymph # (0.6-2.4) K/uL Green # (0.0-0.8) K/uL Eos # (0.0-0.7) K/uL Baso # (0.0-0.1) K/uL Nucleated RBC % /100WBC Nucleated RBCs # K/uL INR (0.86-1.11) ABG pH 7.257 L (7.35-7.45) ABG pCO2 51 H (35-45) mmHG ABG pO2 56 L (75-100) mmHG ABG HCO3 23 (22-26) mEq/L ABG Total CO2 21.4 ABG Base Excess -4.3 L (-2.0-2.0) Lactate (0.20-2.00) mmol/L Sodium (136-146) mmol/L Potassium (3.5-5.1) mmol/L Chloride (98-110) mmol/L Carbon Dioxide (21-31) mmol/L BUN (6.0-23.0) mg/dL Creatinine (0.6-1.5) mg/dL Est Cr Clr Drug Dosing Estimated GFR (MDRD) ml/min Glucose (60-110) mg/dL POC Glucose 90 (60-110) mg/dL Calcium (8.8-10.8) mg/dL Magnesium (1.5-2.3) mEq/L Ammonia 81 H (14-68) UG/DL Lactate Dehydrogenase (125-220) IU/L 07/07/16 07/07/16 07/07/16 Range/Units 00:20 02:10 06:20 WBC (4.0-11.0) K/uL RBC (4.50-5.90) M/uL Hgb (13.0-17.0) g/dL Hct (38.0-50.0) % MCV (80.0-98.0) fL MCH (27.0-32.0) pg MCHC (31.0-37.0) g/dL RDW Std Deviation (28.0-62.0) fl RDW Coeff of William (11.0-15.0) % Plt Count (150-400) K/uL MPV (7.40-12.00) fL Neut % (Auto) (48.0-80.0) % Lymph % (Auto) (16.0-40.0) % Green % (Auto) (0.0-15.0) % Eos % (Auto) (0.0-7.0) % Baso % (Auto) (0.0-1.5) % Neut # (1.4-5.7) K/uL Lymph # (0.6-2.4) K/uL Green # (0.0-0.8) K/uL Eos # (0.0-0.7) K/uL Baso # (0.0-0.1) K/uL Nucleated RBC % /100WBC Nucleated RBCs # K/uL INR 3.71 H (0.86-1.11) ABG pH 7.238 L 7.237 L (7.35-7.45) ABG pCO2 53 H 53 H (35-45) mmHG ABG pO2 82 93 (75-100) mmHG ABG HCO3 22 22 (22-26) mEq/L ABG Total CO2 21.3 21.2 ABG Base Excess -4.8 L -4.8 L (-2.0-2.0) Lactate (0.20-2.00) mmol/L Sodium (136-146) mmol/L Potassium (3.5-5.1) mmol/L Chloride (98-110) mmol/L Carbon Dioxide (21-31) mmol/L BUN (6.0-23.0) mg/dL Creatinine (0.6-1.5) mg/dL Est Cr Clr Drug Dosing Estimated GFR (MDRD) ml/min Glucose (60-110) mg/dL POC Glucose (60-110) mg/dL Calcium (8.8-10.8) mg/dL Magnesium (1.5-2.3) mEq/L Ammonia (14-68) UG/DL Lactate Dehydrogenase (125-220) IU/L 07/07/16 07/07/16 07/07/16 Range/Units 06:20 06:25 06:55 WBC 7.97 (4.0-11.0) K/uL RBC 3.84 L (4.50-5.90) M/uL Hgb 12.1 L (13.0-17.0) g/dL Hct 37.3 L (38.0-50.0) % MCV 97.1 (80.0-98.0) fL MCH 31.5 (27.0-32.0) pg MCHC 32.4 (31.0-37.0) g/dL RDW Std Deviation 59.1 (28.0-62.0) fl RDW Coeff of William 17 H (11.0-15.0) % Plt Count 156 (150-400) K/uL MPV 11.60 (7.40-12.00) fL Neut % (Auto) 97.1 H (48.0-80.0) % Lymph % (Auto) 2.4 L (16.0-40.0) % Green % (Auto) 0.4 (0.0-15.0) % Eos % (Auto) 0.1 (0.0-7.0) % Baso % (Auto) 0.0 (0.0-1.5) % Neut # 7.7 H (1.4-5.7) K/uL Lymph # 0.2 L (0.6-2.4) K/uL Green # 0.0 (0.0-0.8) K/uL Eos # 0.0 (0.0-0.7) K/uL Baso # 0.0 (0.0-0.1) K/uL Nucleated RBC % 0.0 /100WBC Nucleated RBCs # 0 K/uL INR (0.86-1.11) ABG pH (7.35-7.45) ABG pCO2 (35-45) mmHG ABG pO2 (75-100) mmHG ABG HCO3 (22-26) mEq/L ABG Total CO2 ABG Base Excess (-2.0-2.0) Lactate (0.20-2.00) mmol/L Sodium 140 (136-146) mmol/L Potassium 4.4 (3.5-5.1) mmol/L Chloride 107 (98-110) mmol/L Carbon Dioxide 17 L (21-31) mmol/L BUN 84 H (6.0-23.0) mg/dL Creatinine 3.0 H (0.6-1.5) mg/dL Est Cr Clr Drug Dosing 23.38 Estimated GFR (MDRD) 20.7 ml/min Glucose 136 H (60-110) mg/dL POC Glucose 125 H (60-110) mg/dL Calcium 8.8 (8.8-10.8) mg/dL Magnesium (1.5-2.3) mEq/L Ammonia (14-68) UG/DL Lactate Dehydrogenase (125-220) IU/L 07/07/16 Range/Units 08:25 WBC (4.0-11.0) K/uL RBC (4.50-5.90) M/uL Hgb (13.0-17.0) g/dL Hct (38.0-50.0) % MCV (80.0-98.0) fL MCH (27.0-32.0) pg MCHC (31.0-37.0) g/dL RDW Std Deviation (28.0-62.0) fl RDW Coeff of William (11.0-15.0) % Plt Count (150-400) K/uL MPV (7.40-12.00) fL Neut % (Auto) (48.0-80.0) % Lymph % (Auto) (16.0-40.0) % Green % (Auto) (0.0-15.0) % Eos % (Auto) (0.0-7.0) % Baso % (Auto) (0.0-1.5) % Neut # (1.4-5.7) K/uL Lymph # (0.6-2.4) K/uL Green # (0.0-0.8) K/uL Eos # (0.0-0.7) K/uL Baso # (0.0-0.1) K/uL Nucleated RBC % /100WBC Nucleated RBCs # K/uL INR (0.86-1.11) ABG pH 7.321 L (7.35-7.45) ABG pCO2 36 (35-45) mmHG ABG pO2 62 L (75-100) mmHG ABG HCO3 18 L (22-26) mEq/L ABG Total CO2 16.9 ABG Base Excess -7.1 L (-2.0-2.0) Lactate (0.20-2.00) mmol/L Sodium (136-146) mmol/L Potassium (3.5-5.1) mmol/L Chloride (98-110) mmol/L Carbon Dioxide (21-31) mmol/L BUN (6.0-23.0) mg/dL Creatinine (0.6-1.5) mg/dL Est Cr Clr Drug Dosing Estimated GFR (MDRD) ml/min Glucose (60-110) mg/dL POC Glucose (60-110) mg/dL Calcium (8.8-10.8) mg/dL Magnesium (1.5-2.3) mEq/L Ammonia (14-68) UG/DL Lactate Dehydrogenase (125-220) IU/L Med Orders - Current: Current Medications Acetaminophen (Tylenol) 650 mg PO Q4H PRN PRN Reason: Pain Last Admin: 07/05/16 12:28 Dose: 650 mg Acetaminophen/Hydrocodone Bitart (Orick 325-5 Mg) 1 tab PO Q3H PRN PRN Reason: Pain Last Admin: 07/04/16 12:49 Dose: 1 tab Albuterol/Ipratropium (Duoneb 3.0-0.5 Mg/3 Ml) 3 ml NEB Q4HRRT PRN PRN Reason: wheezing , sob Allopurinol (Zyloprim) 100 mg PO BID [place] Last Admin: 07/07/16 08:21 Dose: 100 mg Bisacodyl (Dulcolax) 5 mg PO DAILY PRN PRN Reason: Constipation Carvedilol (Coreg) 25 mg PO BID [facility] Last Admin: 07/07/16 08:21 Dose: 25 mg Fish Oil (Fish Oil) 2 gm PO DAILY [facility] Last Admin: 07/07/16 08:21 Dose: 2 gm Ciprofloxacin/Dextrose 400 mg/ (Premix) 200 mls @ 200 mls/hr IV Q24H [facility] Last Admin: 07/06/16 12:09 Dose: 200 mls/hr Vancomycin HCl 1,500 mg/ (Sodium Chloride) 500 mls @ 333.333 mls/hr IV Q24H [facility] Last Admin: 07/06/16 16:24 Dose: 333.333 mls/hr Piperacillin Sod/Tazobactam (Sod 3.375 gm/ Sodium Chloride) 50 mls @ 100 mls/ hr IV Q6H [facility] Last Admin: 07/07/16 03:28 Dose: 100 mls/hr Insulin Aspart (Novolog) 0 unit SUBCUT ACBED [facility] PRN Reason: Protocol Last Admin: 07/07/16 07:30 Dose: Not Given Insulin Aspart (Novolog) 10 unit SUBCUT TIDAC [facility] Last Admin: 07/07/16 07:30 Dose: 10 units Insulin Glargine (Lantus Solostar) 20 units SUBCUT DAILY [facility] Last Admin: 07/07/16 08:22 Dose: 20 units Methylprednisolone Sodium Succinate (Solu-Medrol) 40 mg IVPUSH Q8H [facility] Last Admin: 07/07/16 03:21 Dose: 40 mg Metoprolol Tartrate (Lopressor) 5 mg IVPUSH Q4H PRN PRN Reason: Tachycardia Last Admin: 07/07/16 06:58 Dose: 5 mg Omeprazole (Omeprazole) 20 mg PO ACBRK [facility] Last Admin: 07/07/16 06:58 Dose: 20 mg Ondansetron HCl (Zofran Odt) 4 mg PO Q4H PRN PRN Reason: nausea, able to take PO Potassium Chloride (Klor-Con M20) 40 meq PO DAILY [facility] Last Admin: 07/07/16 08:35 Dose: Not Given Simvastatin (Zocor) 20 mg PO BEDTIME [facility] Last Admin: 07/06/16 21:02 Dose: 20 mg Warfarin Sodium (Coumadin Ask) 1 each PO DAILY@1400 [facility] Last Admin: 07/06/16 15:10 Dose: Not Given Discontinued Medications Acetaminophen (Tylenol) 650 mg PO NOW ONE Stop: 07/01/16 13:48 Last Admin: 07/01/16 13:51 Dose: 650 mg Albuterol/Ipratropium (Duoneb 3.0-0.5 Mg/3 Ml) 3 ml NEB Q4HRRT PRN PRN Reason: Shortness of Breath Benzonatate (Tessalon Perles) 100 mg PO BID [facility] Last Admin: 07/06/16 08:55 Dose: 100 mg Bumetanide (Bumex) 2 mg PO BID [facility] Last Admin: 07/04/16 10:19 Dose: Not Given Furosemide (Lasix) 40 mg IVPUSH NOW ONE Stop: 07/06/16 11:58 Last Admin: 07/06/16 12:11 Dose: 40 mg Guaifenesin/Dextromethorphan (Robitussin Dm) 10 ml PO Q6H PRN PRN Reason: Cough Last Admin: 07/04/16 22:49 Dose: 10 ml Sodium Chloride (Normal Saline) 1,000 mls @ 999 mls/hr IV .Bolus ONE Stop: 07/01/16 14:25 Last Admin: 07/01/16 13:28 Dose: 999 mls/hr Sodium Chloride (Normal Saline) 1,000 mls @ 999 mls/hr IV STAT ONE Stop: 07/01/16 15:50 Last Admin: 07/01/16 14:53 Dose: 999 mls/hr Piperacillin Sod/Tazobactam (Sod 4.5 gm/ Sodium Chloride) 100 mls @ 100 mls/hr IV ONETIME ONE Stop: 07/01/16 15:59 Last Admin: 07/01/16 15:13 Dose: 100 mls/hr Piperacillin Sod/Tazobactam (Sod 2.25 gm/ Sodium Chloride) 50 mls @ 100 mls/hr IV Q6H [facility] Last Admin: 07/03/16 11:25 Dose: Not Given Sodium Chloride (Normal Saline) 1,000 mls @ 125 mls/hr IV ASDIRECTED [facility] Last Admin: 07/02/16 03:11 Dose: 125 mls/hr Sodium Chloride (Normal Saline) 1,000 mls @ 150 mls/hr IV ASDIRECTED [facility] Last Admin: 07/05/16 14:09 Dose: 150 mls/hr Ceftriaxone Sodium/Dextrose 1 (gm/ Premix) 50 mls @ 100 mls/hr IV Q24H [facility] Last Admin: 07/04/16 10:32 Dose: 100 mls/hr Ciprofloxacin/Dextrose 200 mg/ (Premix) 100 mls @ 100 mls/hr IV Q12H [facility] Last Admin: 07/04/16 22:41 Dose: 100 mls/hr Sodium Chloride (Sodium Chloride 0.45%) 1,000 mls @ 150 mls/hr IV ASDIRECTED [facility] Last Admin: 07/06/16 11:20 Dose: 150 mls/hr Insulin Glargine (Lantus Solostar) 10 units SUBCUT DAILY [facility] Last Admin: 07/03/16 11:23 Dose: Not Given Lactulose (Chronulac) 10 gm PO ONETIME ONE Stop: 07/07/16 02:45 Last Admin: 07/07/16 03:22 Dose: 10 gm Metolazone (Zaroxolyn) 5 mg PO MoWeFr@0800 [facility] Last Admin: 07/03/16 14:28 Dose: 5 mg Metoprolol Tartrate (Lopressor) 5 mg IVPUSH Q4H PRN PRN Reason: Other Stop: 07/02/16 01:16 Last Admin: 07/01/16 20:02 Dose: 5 mg Morphine Sulfate (Morphine) 2 mg IVPUSH Q2H PRN PRN Reason: Pain (severe 7-10) Stop: 07/02/16 17:01 Oxycodone HCl (Oxycontin) 10 mg PO Q12HR [facility] Last Admin: 07/06/16 08:54 Dose: 10 mg Potassium Chloride (Klor-Con M20) 40 meq PO ONETIME ONE Stop: 07/06/16 18:54 Last Admin: 07/06/16 19:10 Dose: Not Given Temazepam (Restoril) 15 mg PO BEDTIME PRN PRN Reason: Sleep Warfarin Sodium (Coumadin) 3 mg PO DAILY@1400 [facility] Last Admin: 07/03/16 13:00 Dose: 3 mg Warfarin Sodium (Coumadin) 2 mg PO MoFr@1400 [facility] - Exam General: alert, oriented, no acute distress HEENT: Pupils equal, EOMI Neck: supple, trachea midline Lungs: Decreased breath sounds. No: Crackles, Rales Cardiovascular: tachycardia Extremities: edema Skin: warm, dry, intact Neurological: no new focal deficit Psy/Mental Status: alert, normal affect, normal mood - Problem List Review Problem List Initiated/Reviewed/Updated: Yes - My Orders Last 24 Hours: My Active Orders 07/06/16 09:15 Potassium Chloride [Klor-Con M20] 40 meq PO DAILY 07/06/16 16:00 Piperacillin/Tazobactam [Piperacil-Tazobact] 3.375 gm Sodium Chloride 0.9% [ Normal Saline] 50 ml IV Q6H 07/06/16 16:15 PROCALCITONIN [REF] Routine 07/06/16 17:00 Vancomycin 1,500 mg Sodium Chloride 0.9% [Normal Saline] 500 ml IV Q24H 07/09/16 16:30 VANCOMYCIN TROUGH [CHEM] Routine - Plan Plan:: Lactate normal ABG: acidosis. Tachycardia most likely secondary to Acidosis: start NAHCO3. check EKG. on RA oxygen sat: 92 % DC antibiotics no evidence of pneumonia clinically or on CXR Chronic cough: he was a smoker in the past. Start I.v Methylprednisone and advair. Duoneb prn. transfer patient to floor since he is not septic DC oxycodone and Tessalon <Don Peterson - Last Filed: 07/07/16 16:44> - General Info Subjective Update: Assessment and plan Altered mental status- secondary to acute respiratory failure hypercarbic increased ammonia level, patient transferred to ICU and the oxygen was held patient has increased CO2 with high oxygen. On BiPAP settings with 30% oxygen patient worsen his CO2 retention. Hyperammonemia- patient was given lactulose, and his ammonia level decreased to 51. He had the ultrasound of the abdomen which showed normal liver. Patient drinks alcohol weekly whiskey. Recommend patient to followup with the GI After fibrillation with rapid ventricular rate -Patient had Coreg increased to 50 mg by mouth twice a day as he was at home, and he was restarted on Coumadin as his INR today was 1.8. He was given a dose of Cardizem 120 mg by mouth daily , and was seen by special duty nurse, recommended he should be started on non-his Bumex dose of 4 mg by mouth twice a day, and the to hold metolazone. COPD exacerbation - patient was started on Solu-Medrol 40 mg IV q. 8 hours last night, it was recommended his oxygen saturation should be kept between 88 and 91. DuoNeb nebulizer treatment. Patient is a smoker for 20 years, he smoked about one pack of cigarettes a day treated in 1975 UTI- continue on ciprofloxacin 400 mg by mouth daily for a total of 7 days. 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 He was started on bicarbonate tablets to 2 metabolic acidosis his bicarbonate today was 17. His creatinine was stable today at 3 , patient did not tolerated more fluids. Patient stable for discharge tomorrow . - Patient Data Vitals - most recent: Last Vital Signs Temp 98.1 F 07/07/16 12:25 Pulse 117 H 07/07/16 14:50 Resp 20 07/07/16 12:25 BP 116/51 L 07/07/16 14:50 Pulse Ox 90 L 07/07/16 12:25 I&O - last 24 hours: Intake & Output 07/07/16 07/07/16 07/07/16 06:59 14:59 22:59 Intake Total 600 200 Output Total 800 Balance -200 200 Lab Results last 24 hrs: Laboratory Results - last 24 hr 07/06/16 07/06/16 07/06/16 Range/Units 16:15 16:15 16:38 WBC (4.0-11.0) K/uL RBC (4.50-5.90) M/uL Hgb (13.0-17.0) g/dL Hct (38.0-50.0) % MCV (80.0-98.0) fL MCH (27.0-32.0) pg MCHC (31.0-37.0) g/dL RDW Std Deviation (28.0-62.0) fl RDW Coeff of William (11.0-15.0) % Plt Count (150-400) K/uL MPV (7.40-12.00) fL Neut % (Auto) (48.0-80.0) % Lymph % (Auto) (16.0-40.0) % Green % (Auto) (0.0-15.0) % Eos % (Auto) (0.0-7.0) % Baso % (Auto) (0.0-1.5) % Neut # (1.4-5.7) K/uL Lymph # (0.6-2.4) K/uL Green # (0.0-0.8) K/uL Eos # (0.0-0.7) K/uL Baso # (0.0-0.1) K/uL Nucleated RBC % /100WBC Nucleated RBCs # K/uL INR (0.86-1.11) ABG pH (7.35-7.45) ABG pCO2 (35-45) mmHG ABG pO2 (75-100) mmHG ABG HCO3 (22-26) mEq/L ABG Total CO2 ABG Base Excess (-2.0-2.0) Lactate (0.20-2.00) mmol/L Sodium 139 (136-146) mmol/L Potassium 3.4 L (3.5-5.1) mmol/L Chloride 105 (98-110) mmol/L Carbon Dioxide 23 (21-31) mmol/L BUN 80 H (6.0-23.0) mg/dL Creatinine 3.0 H (0.6-1.5) mg/dL Est Cr Clr Drug Dosing 23.38 mL/min Estimated GFR (MDRD) 20.7 ml/min Glucose 123 H (60-110) mg/dL POC Glucose 124 H (60-110) mg/dL Calcium 8.9 (8.8-10.8) mg/dL Ammonia (14-68) UG/DL Lactate Dehydrogenase 192 (125-220) IU/L 07/06/16 07/06/16 07/06/16 Range/Units 17:37 19:32 19:50 WBC (4.0-11.0) K/uL RBC (4.50-5.90) M/uL Hgb (13.0-17.0) g/dL Hct (38.0-50.0) % MCV (80.0-98.0) fL MCH (27.0-32.0) pg MCHC (31.0-37.0) g/dL RDW Std Deviation (28.0-62.0) fl RDW Coeff of William (11.0-15.0) % Plt Count (150-400) K/uL MPV (7.40-12.00) fL Neut % (Auto) (48.0-80.0) % Lymph % (Auto) (16.0-40.0) % Green % (Auto) (0.0-15.0) % Eos % (Auto) (0.0-7.0) % Baso % (Auto) (0.0-1.5) % Neut # (1.4-5.7) K/uL Lymph # (0.6-2.4) K/uL Green # (0.0-0.8) K/uL Eos # (0.0-0.7) K/uL Baso # (0.0-0.1) K/uL Nucleated RBC % /100WBC Nucleated RBCs # K/uL INR (0.86-1.11) ABG pH 7.257 L (7.35-7.45) ABG pCO2 51 H (35-45) mmHG ABG pO2 56 L (75-100) mmHG ABG HCO3 23 (22-26) mEq/L ABG Total CO2 21.4 ABG Base Excess -4.3 L (-2.0-2.0) Lactate 0.5 (0.20-2.00) mmol/L Sodium (136-146) mmol/L Potassium (3.5-5.1) mmol/L Chloride (98-110) mmol/L Carbon Dioxide (21-31) mmol/L BUN (6.0-23.0) mg/dL Creatinine (0.6-1.5) mg/dL Est Cr Clr Drug Dosing mL/min Estimated GFR (MDRD) ml/min Glucose (60-110) mg/dL POC Glucose (60-110) mg/dL Calcium (8.8-10.8) mg/dL Ammonia 81 H (14-68) UG/DL Lactate Dehydrogenase (125-220) IU/L 07/06/16 07/07/16 07/07/16 Range/Units 20:58 00:20 02:10 WBC (4.0-11.0) K/uL RBC (4.50-5.90) M/uL Hgb (13.0-17.0) g/dL Hct (38.0-50.0) % MCV (80.0-98.0) fL MCH (27.0-32.0) pg MCHC (31.0-37.0) g/dL RDW Std Deviation (28.0-62.0) fl RDW Coeff of William (11.0-15.0) % Plt Count (150-400) K/uL MPV (7.40-12.00) fL Neut % (Auto) (48.0-80.0) % Lymph % (Auto) (16.0-40.0) % Green % (Auto) (0.0-15.0) % Eos % (Auto) (0.0-7.0) % Baso % (Auto) (0.0-1.5) % Neut # (1.4-5.7) K/uL Lymph # (0.6-2.4) K/uL Green # (0.0-0.8) K/uL Eos # (0.0-0.7) K/uL Baso # (0.0-0.1) K/uL Nucleated RBC % /100WBC Nucleated RBCs # K/uL INR (0.86-1.11) ABG pH 7.238 L 7.237 L (7.35-7.45) ABG pCO2 53 H 53 H (35-45) mmHG ABG pO2 82 93 (75-100) mmHG ABG HCO3 22 22 (22-26) mEq/L ABG Total CO2 21.3 21.2 ABG Base Excess -4.8 L -4.8 L (-2.0-2.0) Lactate (0.20-2.00) mmol/L Sodium (136-146) mmol/L Potassium (3.5-5.1) mmol/L Chloride (98-110) mmol/L Carbon Dioxide (21-31) mmol/L BUN (6.0-23.0) mg/dL Creatinine (0.6-1.5) mg/dL Est Cr Clr Drug Dosing mL/min Estimated GFR (MDRD) ml/min Glucose (60-110) mg/dL POC Glucose 90 (60-110) mg/dL Calcium (8.8-10.8) mg/dL Ammonia (14-68) UG/DL Lactate Dehydrogenase (125-220) IU/L 07/07/16 07/07/16 07/07/16 Range/Units 06:20 06:20 06:25 WBC 7.97 (4.0-11.0) K/uL RBC 3.84 L (4.50-5.90) M/uL Hgb 12.1 L (13.0-17.0) g/dL Hct 37.3 L (38.0-50.0) % MCV 97.1 (80.0-98.0) fL MCH 31.5 (27.0-32.0) pg MCHC 32.4 (31.0-37.0) g/dL RDW Std Deviation 59.1 (28.0-62.0) fl RDW Coeff of William 17 H (11.0-15.0) % Plt Count 156 (150-400) K/uL MPV 11.60 (7.40-12.00) fL Neut % (Auto) 97.1 H (48.0-80.0) % Lymph % (Auto) 2.4 L (16.0-40.0) % Green % (Auto) 0.4 (0.0-15.0) % Eos % (Auto) 0.1 (0.0-7.0) % Baso % (Auto) 0.0 (0.0-1.5) % Neut # 7.7 H (1.4-5.7) K/uL Lymph # 0.2 L (0.6-2.4) K/uL Green # 0.0 (0.0-0.8) K/uL Eos # 0.0 (0.0-0.7) K/uL Baso # 0.0 (0.0-0.1) K/uL Nucleated RBC % 0.0 /100WBC Nucleated RBCs # 0 K/uL INR 3.71 H (0.86-1.11) ABG pH (7.35-7.45) ABG pCO2 (35-45) mmHG ABG pO2 (75-100) mmHG ABG HCO3 (22-26) mEq/L ABG Total CO2 ABG Base Excess (-2.0-2.0) Lactate (0.20-2.00) mmol/L Sodium 140 (136-146) mmol/L Potassium 4.4 (3.5-5.1) mmol/L Chloride 107 (98-110) mmol/L Carbon Dioxide 17 L (21-31) mmol/L BUN 84 H (6.0-23.0) mg/dL Creatinine 3.0 H (0.6-1.5) mg/dL Est Cr Clr Drug Dosing 23.38 mL/min Estimated GFR (MDRD) 20.7 ml/min Glucose 136 H (60-110) mg/dL POC Glucose (60-110) mg/dL Calcium 8.8 (8.8-10.8) mg/dL Ammonia (14-68) UG/DL Lactate Dehydrogenase (125-220) IU/L 07/07/16 07/07/16 07/07/16 Range/Units 06:55 08:25 11:15 WBC (4.0-11.0) K/uL RBC (4.50-5.90) M/uL Hgb (13.0-17.0) g/dL Hct (38.0-50.0) % MCV (80.0-98.0) fL MCH (27.0-32.0) pg MCHC (31.0-37.0) g/dL RDW Std Deviation (28.0-62.0) fl RDW Coeff of William (11.0-15.0) % Plt Count (150-400) K/uL MPV (7.40-12.00) fL Neut % (Auto) (48.0-80.0) % Lymph % (Auto) (16.0-40.0) % Green % (Auto) (0.0-15.0) % Eos % (Auto) (0.0-7.0) % Baso % (Auto) (0.0-1.5) % Neut # (1.4-5.7) K/uL Lymph # (0.6-2.4) K/uL Green # (0.0-0.8) K/uL Eos # (0.0-0.7) K/uL Baso # (0.0-0.1) K/uL Nucleated RBC % /100WBC Nucleated RBCs # K/uL INR (0.86-1.11) ABG pH 7.321 L (7.35-7.45) ABG pCO2 36 (35-45) mmHG ABG pO2 62 L (75-100) mmHG ABG HCO3 18 L (22-26) mEq/L ABG Total CO2 16.9 ABG Base Excess -7.1 L (-2.0-2.0) Lactate (0.20-2.00) mmol/L Sodium (136-146) mmol/L Potassium (3.5-5.1) mmol/L Chloride (98-110) mmol/L Carbon Dioxide (21-31) mmol/L BUN (6.0-23.0) mg/dL Creatinine (0.6-1.5) mg/dL Est Cr Clr Drug Dosing mL/min Estimated GFR (MDRD) ml/min Glucose (60-110) mg/dL POC Glucose 125 H 267 H (60-110) mg/dL Calcium (8.8-10.8) mg/dL Ammonia (14-68) UG/DL Lactate Dehydrogenase (125-220) IU/L 07/07/16 Range/Units 11:22 WBC (4.0-11.0) K/uL RBC (4.50-5.90) M/uL Hgb (13.0-17.0) g/dL Hct (38.0-50.0) % MCV (80.0-98.0) fL MCH (27.0-32.0) pg MCHC (31.0-37.0) g/dL RDW Std Deviation (28.0-62.0) fl RDW Coeff of William (11.0-15.0) % Plt Count (150-400) K/uL MPV (7.40-12.00) fL Neut % (Auto) (48.0-80.0) % Lymph % (Auto) (16.0-40.0) % Green % (Auto) (0.0-15.0) % Eos % (Auto) (0.0-7.0) % Baso % (Auto) (0.0-1.5) % Neut # (1.4-5.7) K/uL Lymph # (0.6-2.4) K/uL Green # (0.0-0.8) K/uL Eos # (0.0-0.7) K/uL Baso # (0.0-0.1) K/uL Nucleated RBC % /100WBC Nucleated RBCs # K/uL INR (0.86-1.11) ABG pH (7.35-7.45) ABG pCO2 (35-45) mmHG ABG pO2 (75-100) mmHG ABG HCO3 (22-26) mEq/L ABG Total CO2 ABG Base Excess (-2.0-2.0) Lactate (0.20-2.00) mmol/L Sodium (136-146) mmol/L Potassium (3.5-5.1) mmol/L Chloride (98-110) mmol/L Carbon Dioxide (21-31) mmol/L BUN (6.0-23.0) mg/dL Creatinine (0.6-1.5) mg/dL Est Cr Clr Drug Dosing mL/min Estimated GFR (MDRD) ml/min Glucose (60-110) mg/dL POC Glucose (60-110) mg/dL Calcium (8.8-10.8) mg/dL Ammonia 53 (14-68) UG/DL Lactate Dehydrogenase (125-220) IU/L Med Orders - Current: Current Medications Acetaminophen (Tylenol) 650 mg PO Q4H PRN PRN Reason: Pain Last Admin: 07/07/16 14:30 Dose: 650 mg Acetaminophen/Hydrocodone Bitart (Orick 325-5 Mg) 1 tab PO Q3H PRN PRN Reason: Pain Last Admin: 07/04/16 12:49 Dose: 1 tab Albuterol/Ipratropium (Duoneb 3.0-0.5 Mg/3 Ml) 3 ml NEB Q4HRRT PRN PRN Reason: wheezing , sob Allopurinol (Zyloprim) 100 mg PO BID [facility] Last Admin: 07/07/16 08:21 Dose: 100 mg Bisacodyl (Dulcolax) 5 mg PO DAILY PRN PRN Reason: Constipation Bumetanide (Bumex) 4 mg PO BID [facility] Carvedilol (Coreg) 50 mg PO BID [facility] Diltiazem HCl (Cardizem Cd) 120 mg PO DAILY [facility] Last Admin: 07/07/16 12:27 Dose: 120 mg Fish Oil (Fish Oil) 2 gm PO DAILY [facility] Last Admin: 07/07/16 08:21 Dose: 2 gm Ciprofloxacin/Dextrose 400 mg/ (Premix) 200 mls @ 200 mls/hr IV Q24H [facility] Last Admin: 07/07/16 11:27 Dose: 200 mls/hr Insulin Aspart (Novolog) 0 unit SUBCUT ACBED [facility] PRN Reason: Protocol Last Admin: 07/07/16 11:37 Dose: 6 units Insulin Aspart (Novolog) 10 unit SUBCUT TIDAC [facility] Last Admin: 07/07/16 11:37 Dose: 10 units Insulin Glargine (Lantus Solostar) 20 units SUBCUT DAILY [facility] Last Admin: 07/07/16 08:22 Dose: 20 units Methylprednisolone Sodium Succinate (Solu-Medrol) 40 mg IVPUSH Q8H [facility] Last Admin: 07/07/16 11:26 Dose: 40 mg Metoprolol Tartrate (Lopressor) 5 mg IVPUSH Q4H PRN PRN Reason: Tachycardia Last Admin: 07/07/16 14:50 Dose: 5 mg Omeprazole (Omeprazole) 20 mg PO ACBRK [facility] Last Admin: 07/07/16 06:58 Dose: 20 mg Ondansetron HCl (Zofran Odt) 4 mg PO Q4H PRN PRN Reason: nausea, able to take PO Potassium Chloride (Klor-Con M20) 40 meq PO DAILY [facility] Last Admin: 07/07/16 08:35 Dose: Not Given Fluticasone/Salmeterol (Advair Diskus 250-50) 1 puff INH BID [facility] Last Admin: 07/07/16 10:56 Dose: 1 puff Simvastatin (Zocor) 20 mg PO BEDTIME [facility] Last Admin: 07/06/16 21:02 Dose: 20 mg Sodium Bicarbonate (Sodium Bicarbonate) 650 mg PO TID [facility] Last Admin: 07/07/16 13:53 Dose: 650 mg Warfarin Sodium (Coumadin Ask) 1 each PO DAILY@1400 [facility] Last Admin: 07/07/16 13:21 Dose: Not Given Discontinued Medications Acetaminophen (Tylenol) 650 mg PO NOW ONE Stop: 07/01/16 13:48 Last Admin: 07/01/16 13:51 Dose: 650 mg Albuterol/Ipratropium (Duoneb 3.0-0.5 Mg/3 Ml) 3 ml NEB Q4HRRT PRN PRN Reason: Shortness of Breath Benzonatate (Tessalon Perles) 100 mg PO BID [facility] Last Admin: 07/06/16 08:55 Dose: 100 mg Bumetanide (Bumex) 2 mg PO BID [facility] Last Admin: 07/04/16 10:19 Dose: Not Given Carvedilol (Coreg) 25 mg PO BID [facility] Last Admin: 07/07/16 08:21 Dose: 25 mg Carvedilol (Coreg) 25 mg PO ONETIME ONE Stop: 07/07/16 12:39 Last Admin: 07/07/16 12:59 Dose: 25 mg Furosemide (Lasix) 40 mg IVPUSH NOW ONE Stop: 07/06/16 11:58 Last Admin: 07/06/16 12:11 Dose: 40 mg Guaifenesin/Dextromethorphan (Robitussin Dm) 10 ml PO Q6H PRN PRN Reason: Cough Last Admin: 07/04/16 22:49 Dose: 10 ml Sodium Chloride (Normal Saline) 1,000 mls @ 999 mls/hr IV .Bolus ONE Stop: 07/01/16 14:25 Last Admin: 07/01/16 13:28 Dose: 999 mls/hr Sodium Chloride (Normal Saline) 1,000 mls @ 999 mls/hr IV STAT ONE Stop: 07/01/16 15:50 Last Admin: 07/01/16 14:53 Dose: 999 mls/hr Piperacillin Sod/Tazobactam (Sod 4.5 gm/ Sodium Chloride) 100 mls @ 100 mls/hr IV ONETIME ONE Stop: 07/01/16 15:59 Last Admin: 07/01/16 15:13 Dose: 100 mls/hr Piperacillin Sod/Tazobactam (Sod 2.25 gm/ Sodium Chloride) 50 mls @ 100 mls/hr IV Q6H [facility] Last Admin: 07/03/16 11:25 Dose: Not Given Sodium Chloride (Normal Saline) 1,000 mls @ 125 mls/hr IV ASDIRECTED [facility] Last Admin: 07/02/16 03:11 Dose: 125 mls/hr Sodium Chloride (Normal Saline) 1,000 mls @ 150 mls/hr IV ASDIRECTED [facility] Last Admin: 07/05/16 14:09 Dose: 150 mls/hr Ceftriaxone Sodium/Dextrose 1 (gm/ Premix) 50 mls @ 100 mls/hr IV Q24H [facility] Last Admin: 07/04/16 10:32 Dose: 100 mls/hr Ciprofloxacin/Dextrose 200 mg/ (Premix) 100 mls @ 100 mls/hr IV Q12H [facility] Last Admin: 07/04/16 22:41 Dose: 100 mls/hr Sodium Chloride (Sodium Chloride 0.45%) 1,000 mls @ 150 mls/hr IV ASDIRECTED [facility] Last Admin: 07/06/16 11:20 Dose: 150 mls/hr Vancomycin HCl 1,500 mg/ (Sodium Chloride) 500 mls @ 333.333 mls/hr IV Q24H [facility] Last Admin: 07/06/16 16:24 Dose: 333.333 mls/hr Piperacillin Sod/Tazobactam (Sod 3.375 gm/ Sodium Chloride) 50 mls @ 100 mls/ hr IV Q6H [facility] Last Admin: 07/07/16 10:17 Dose: Not Given Sodium Chloride (Sodium Chloride 0.45%) 1,000 mls @ 75 mls/hr IV ASDIRECTED [facility] Last Admin: 07/07/16 11:45 Dose: 75 mls/hr Insulin Glargine (Lantus Solostar) 10 units SUBCUT DAILY [facility] Last Admin: 07/03/16 11:23 Dose: Not Given Lactulose (Chronulac) 10 gm PO ONETIME ONE Stop: 07/07/16 02:45 Last Admin: 07/07/16 03:22 Dose: 10 gm Metolazone (Zaroxolyn) 5 mg PO MoWeFr@0800 [facility] Last Admin: 07/03/16 14:28 Dose: 5 mg Metoprolol Tartrate (Lopressor) 5 mg IVPUSH Q4H PRN PRN Reason: Other Stop: 07/02/16 01:16 Last Admin: 07/01/16 20:02 Dose: 5 mg Morphine Sulfate (Morphine) 2 mg IVPUSH Q2H PRN PRN Reason: Pain (severe 7-10) Stop: 07/02/16 17:01 Oxycodone HCl (Oxycontin) 10 mg PO Q12HR [facility] Last Admin: 07/06/16 08:54 Dose: 10 mg Potassium Chloride (Klor-Con M20) 40 meq PO ONETIME ONE Stop: 07/06/16 18:54 Last Admin: 07/06/16 19:10 Dose: Not Given Sodium Bicarbonate (Sodium Bicarbonate) 650 mg PO TID [facility] Temazepam (Restoril) 15 mg PO BEDTIME PRN PRN Reason: Sleep Warfarin Sodium (Coumadin) 3 mg PO DAILY@1400 [facility] Last Admin: 07/03/16 13:00 Dose: 3 mg Warfarin Sodium (Coumadin) 2 mg PO MoFr@1400 [facility] Warfarin Sodium (Coumadin Ask) 1 each PO DAILY@1400 [facility] Last Admin: 07/06/16 15:10 Dose: Not Given - Problem List & Annotations (1) Acute on chronic kidney failure SNOMED Code(s): 924902418 Code(s): N17.9 - ACUTE KIDNEY FAILURE, UNSPECIFIED; N18.9 - CHRONIC KIDNEY DISEASE, UNSPECIFIED Status: Acute Current Visit: Yes (2) Sepsis SNOMED Code(s): 20680628 Code(s): A41.9 - SEPSIS, UNSPECIFIED ORGANISM Status: Acute Current Visit : Yes (3) UTI, Urinary tract infectious disease SNOMED Code(s): 98085336 Code(s): N39.0 - URINARY TRACT INFECTION, SITE NOT SPECIFIED Status: Acute Current Visit: Yes - My Orders Last 24 Hours: My Active Orders 07/06/16 19:21 Albuterol/Ipratropium [DuoNeb 3.0-0.5 MG/3 ML] 3 ml NEB Q4HRRT PRN 07/06/16 19:30 methylPREDNISolone Sod Succ [Solu-MEDROL] 40 mg IVPUSH Q8H 07/06/16 20:02 Transfer Patient (Change bed) [ADT] Routine 07/06/16 20:03 BIPAP Adult [RT BiPAP/CPAP] [RC] ASDIRECTED 07/06/16 20:09 Neuro Check [RC] Q4H 07/07/16 09:00 Sodium Bicarbonate 650 mg PO TID 07/07/16 12:00 Diltiazem [Cardizem CD] 120 mg PO DAILY 07/07/16 14:00 Warfarin Dosing [Coumadin Ask] 1 each PO DAILY@1400 07/08/16 05:30 INR,PT,PROTHROMBIN TIME [COAG] DAILY 07/09/16 05:30 INR,PT,PROTHROMBIN TIME [COAG] DAILY 07/10/16 05:30 INR,PT,PROTHROMBIN TIME [COAG] DAILY 07/11/16 05:30 INR,PT,PROTHROMBIN TIME [COAG] DAILY
[2016-07-07] MEDS: Sodium Bicarbonate 650 MG Tab PO SCH ×3 (09:14→21:10)
[2016-07-07] MEDS: Fluticasone/Salmeterol 250-50 MCG Inhalation Powder 14/Diskus INH SCH ×2 (10:56→21:10)
[2016-07-07] MEDS ORDERED: Sodium Chloride 0.45% 1,000 ML IV SCH (11:00)
[2016-07-07] MEDS: Ciprofloxacin in D5W 400 MG in Premix Bag 1 BAG IV SCH ×2 (11:27)
[2016-07-07] MEDS: Diltiazem 120 MG Cap.CD PO SCH (12:27)
[2016-07-07] MEDS ORDERED: Carvedilol 25 MG Tab PO ONE (12:38)
--- NOTE | 2016-07-07 13:41 | CONS ---
DATE OF CONSULTATION: DATE OF : 1945 PRIMARY CARE PHYSICIAN: None PCP REASON FOR CONSULTATION: Atrial fibrillation. HISTORY OF PRESENT ILLNESS: This is a 70-year-old male with history of permanent atrial fibrillation, cardiomyopathy, EF of 45% to 50%, uncontrolled diabetes, hypertension, history of kidney stones, bladder cancer with ileostomy, presented to the hospital due to feeling tired, shortness of breath. He was consulted for fast heart rate and fever. He was treated for a UTI because the UA was positive, however, he was transferred to the ICU because of alteration in mental status and found to have CO2 narcosis and he was on a BiPAP and repeat blood gas on the BiPAP, he was improving and CO2 was down to 36 and his consciousness improved; however, his atrial fibrillation still was not controlled. His heart rate is ranging between 100 to 110. He is supposed to be on Coreg 50 mg twice a day as well as Bumex 4 mg twice a day. He was recently seen by a database management specialist who recommended him to be on metolazone 5 mg 3 times a week, however, he stated that when he started taking first dose of metolazone, he started feeling weak, tired, and he stopped taking those medicines. He also had a history of chronic kidney disease stage 4. Otherwise, when I talked to him, he denied any chest pain, shortness of breath. REVIEW OF SYSTEMS: 12-point review of system was negative except as indicated in the HPI. PAST MEDICAL HISTORY: Including history of systolic congestive heart failure, EF of 45% to 50%, history of permanent atrial fibrillation, peripheral vascular disease, diabetic, hypertension, chronic kidney disease stage 4, bladder cancer, history of kidney stones, UTI. ALLERGIES: Allergy to hendrix peppers and lisinopril. SURGICAL HISTORY: Bladder surgery, cataract surgery, tonsillectomy, prostate surgery. FAMILY HISTORY: Mother had a history of arthritis, depression, hypertension, and high cholesterol. Father had a history of high cholesterol, hypertension. SOCIAL HISTORY: Occasional drink, like 8 drinks per week. Denied drug use. Former smoker. PHYSICAL EXAMINATION: VITAL SIGNS: Currently, vital signs; blood pressure is 121/62, heart rate of 110, temperature 36.7, O2 saturation 90s on 2 L. HEENT: Mildly pale. No jaundice. No JVD. HEART: Totally irregular. No murmur. LUNGS: Decreased breath sounds. Mild crackles. ABDOMEN: Soft, nontender, mildly distended. Bowel sounds present. No hepatosplenomegaly. EXTREMITIES: 3+ edema. LABORATORY INVESTIGATION: CBC showed WBC 7.9, hematocrit 37, platelets 156. INR 3.7. Blood gas today; 7.32, CO2 of 36, PO2 of 62, bicarb 18. Sodium 140, potassium 4.4, chloride 107, bicarb 17, BUN 84. Creatinine is 3, his baseline is 2. ASSESSMENT AND PLAN: This is a 70-year-old male with history of permanent atrial fibrillation, EF of 45% to 50%, hypertension, dyslipidemia, hyperlipidemia, kidney stone, bladder cancer, presents to the hospital with possible sepsis with urinary tract infection, getting antibiotics, consulted for atrial fibrillation with RVR. He is on Coreg 25 twice a day as opposed to 50 twice a day as his home dose; I would recommend to increase the Coreg to 50 twice a day. We can use the Cardizem to control his heart rate and continue the Coumadin. He is being treated for urinary tract infection as well as chronic obstructive pulmonary disease with steroids. JOHN / HELENA /[id number]
[2016-07-07] MEDS ORDERED: Sodium Bicarbonate 650 MG Tab PO SCH (14:00)
[2016-07-07] MEDS: Acetaminophen 325 MG Tab PO PRN (14:30)
--- NOTE | 2016-07-07 14:48 | CT ---
EXAM DATE: 07/01/16 PATIENT'S AGE: 70 Patient: SCHUYLER ESTRADA Facility: [place], [place] Site . Site : 1945 Study: CT Head [id number]/[id number] 8:55:00 PM Ordering Physician: Charline Andersen Final Report: INDICATION: ALTERED MENTAL STATE TECHNIQUE: CT Head without i.v. contrast COMPARISON: None FINDINGS: The study is mildly limited by patient motion artifacts. CSF spaces: Within normal limits for age. Brain parenchyma: Mild, diffuse cortical atrophy is noted. There are low attenuation white matter changes, likely due to chronic microvascular disease. The brain parenchyma is normal in appearance with preservation of the hoffman- white matter junction. No sign of mass, hemorrhage, or midline shift. Skull base and calvarium: The visualized paranasal sinuses are well aerated. The mastoid air cells are clear. The visualized orbits are grossly unremarkable. The patient is status post prior bilateral cataract removal. No skull fractures are seen. IMPRESSION: 1. No CT evidence acute infarcts, hemorrhage, or mass effect seen. Dictated by: Chidi Cloud MD @ 07/06/2016 21:12:58 (Electronic Signature) Report Signed by Proxy and Original Signed Document filed in the Medical Record. [facility]
--- NOTE | 2016-07-07 16:30 | PCM.SN ---
- Free Text/Narrative Note: Spoke to green prize packer Dr. cedeno. He states that the patient can be discharged with bumex and cardiac medications. He will see him in 2-3 weeks in [place]. If stable discharge tomorrow.
[2016-07-07] MEDS: Bumetanide 1 MG Tab PO SCH (20:28)
[2016-07-07] MEDS: Simvastatin 20 MG Tab PO SCH (20:29)
[2016-07-08] MEDS: methylPREDNISolone Sodium Succinate 40 MG/1 ML SDV IVPUSH SCH (02:37)
[2016-07-08] MEDS: Sodium Bicarbonate 650 MG Tab PO SCH (07:00)
[2016-07-08] MEDS: Omeprazole 20 MG Cap.CR PO SCH (07:03)
[2016-07-08] MEDS: Insulin Aspart 100 Units/ML 3 ML Pen SUBCUT SCH ×4 (07:32→11:59)
[2016-07-08] MEDS: Fluticasone/Salmeterol 250-50 MCG Inhalation Powder 14/Diskus INH SCH (09:11)
[2016-07-08] MEDS: Fish Oil/Omega-3 Fatty Acids 1 Gm Cap PO SCH (09:35)
[2016-07-08] MEDS: Potassium Chloride 20 MEQ Tab.ER PO SCH (09:36)
[2016-07-08] MEDS: Diltiazem 120 MG Cap.CD PO SCH (09:36)
[2016-07-08] MEDS: Carvedilol 25 MG Tab PO SCH (09:36)
[2016-07-08 09:37] VITALS: BP 123/79
[2016-07-08] MEDS: Allopurinol 100 MG Tab PO SCH (09:39)
--- NOTE | 2016-07-08 09:40 | PCM.DCSUM1 ---
<Dasha Barrios - Last Filed: 07/13/16 07:24> Discharge Summary - Hospital Course Free Text/Narrative:: 70 yo male with history of bladder cancer s/p urosotomy, uncontrolled DM, COPD, CHF, A-fib, CKD 4 admitted for urosepsis. He was recently started on diruetic metzolone by nephrology. He stated after first dose he felt weak, lethargic and sob. He was started on I.V ciprofloxacin. His urine culture was positive for klebsiella, pseudonomas, his aerobic blood culture was positive for Enterbacter cloache. Both cultures were sensitive to rocephin. During the course of hospitalization, He had altered mental status with A-fib with RVR. He was transfered to ICU. His ABG revealed CO2 narcosis. He was placed on BIPAP, dounebs and I.V steroids. Cardiology was consulted who recommended to increase coreg, continue diltiazem, warfarin. His mental status improved. His baseline creatinine is 2. Consulted nephrology over the phone. He recommended to continue Bumex and cardiac medications. He will see the patient first available appointment in [place]. - Discharge Data Discharge Date: 07/08/16 Discharge Disposition: Home, Self-Care 01 Condition: Fair - Patient Summary/Data Consults: Consultations 07/03/16 10:57 PT Evaluation and Treatment [CONS] Routine 07/05/16 10:31 PT Evaluation and Treatment [CONS] Routine 07/07/16 12:30 Consult to Physician [CONS] Routine - Patient Instructions Diet: Heart Healthy Diet, Diabetic Diet, Renal Diet Fluid Restriction: 2000 mL Activity: As Tolerated Driving: Do Not Drive Showering/Bathing: May Shower Notify Provider of: Fever, Increased Pain, Swelling and Redness, Drainage, Nausea and/or Vomiting - Discharge Plan Prescriptions/Med Rec: Fluticasone/Salmeterol [Advair Diskus 250-50] 1 puff INH BID #1 inhaler Insulin Glarg,Human.Rec.Analog [LantUS Solostar] 20 units SUBCUT DAILY #1 pen Sodium Bicarbonate 650 mg PO TID #30 tablet Home Medications: Home Meds Allopurinol [Zyloprim] 100 mg PO BID 07/01/16 [History] Calcitriol [Rocaltrol] 0.25 mcg PO DAILY 07/01/16 [History] Ferrous Sulfate [Iron] 325 mg PO BID 07/01/16 [History] Insulin Glarg,Human.Rec.Analog [Lantus] See Protocol SUBCUT DAILY 07/01/16 [ History] Laura-3/DHA/Epa/Fish Oil [Fish Oil 1,000 mg Softgel] 2 gm PO DAILY 07/01/16 [ History] Omeprazole Magnesium [Prilosec Otc] 20 mg PO ACBREAKFAST 07/01/16 [History] Potassium Chloride 0.5 tab PO DAILY 07/01/16 [History] Simvastatin [Zocor] 20 mg PO BEDTIME 07/01/16 [History] Warfarin [Coumadin] 2 mg PO DAILY 07/01/16 [History] Warfarin [Coumadin] 3 mg PO DAILY 07/01/16 [History] Bumetanide [Bumex] 4 mg PO BID tablet 07/08/16 [Rx] Diltiazem [Cardizem CD] 120 mg PO DAILY cap.cd 07/08/16 [Rx] Fluticasone/Salmeterol [Advair Diskus 250-50] 1 puff INH BID #1 inhaler [Rx] Insulin Glarg,Human.Rec.Analog [LantUS Solostar] 20 units SUBCUT DAILY #1 pen [Rx] Sodium Bicarbonate 650 mg PO TID #30 tablet 07/08/16 [Rx] Patient Handouts: Fluticasone; Salmeterol inhalation powder, Sodium Bicarbonate tablets, Urinary Tract Infection, Adult, Heart Failure, [id number] , Urosepsis, Bacteremia Referrals: Ed King MD [Physician] - 07/31/16 2:00 pm Duglas Cash MD [Physician] - 07/14/16 3:30 pm Valentino Montalvo MD [Physician] - 08/02/16 3:00 pm - General Info Date of Service: 07/08/16 Functional Status: Reports: tolerating diet, urinating - Review of Systems General: Reports: no symptoms HEENT: Reports: no symptoms Pulmonary: Reports: no symptoms Cardiovascular: Reports: no symptoms Gastrointestinal: Reports: No symptoms Genitourinary: Reports: no symptoms Musculoskeletal: Reports: no symptoms Skin: Reports: no symptoms Neurological: Reports: no symptoms Psychiatric: Reports: no symptoms - Patient Data Vitals - Most Recent: Last Vital Signs Temp 97.7 F 07/08/16 08:22 Pulse 129 H 07/08/16 09:36 Resp 18 07/08/16 08:22 BP 123/79 07/08/16 09:36 Pulse Ox 94 L 07/08/16 08:22 Weight - Most Recent: 282 lb 3.067 oz I&O - Last 24 hours: Intake & Output 07/07/16 07/08/16 07/08/16 22:59 06:59 14:59 Intake Total 650 700 Output Total 550 525 Balance 100 175 Lab Results - Last 24 hrs: Laboratory Results - last 24 hr 07/06/16 07/07/16 07/07/16 Range/Units 16:15 11:15 11:22 WBC (4.0-11.0) K/uL RBC (4.50-5.90) M/uL Hgb (13.0-17.0) g/dL Hct (38.0-50.0) % MCV (80.0-98.0) fL MCH (27.0-32.0) pg MCHC (31.0-37.0) g/dL RDW Std Deviation (28.0-62.0) fl RDW Coeff of William (11.0-15.0) % Plt Count (150-400) K/uL MPV (7.40-12.00) fL Neut % (Auto) (48.0-80.0) % Lymph % (Auto) (16.0-40.0) % Caswell % (Auto) (0.0-15.0) % Eos % (Auto) (0.0-7.0) % Baso % (Auto) (0.0-1.5) % Neut # (1.4-5.7) K/uL Lymph # (0.6-2.4) K/uL Caswell # (0.0-0.8) K/uL Eos # (0.0-0.7) K/uL Baso # (0.0-0.1) K/uL Nucleated RBC % /100WBC Nucleated RBCs # K/uL INR (0.86-1.11) Sodium (136-146) mmol/L Potassium (3.5-5.1) mmol/L Chloride (98-110) mmol/L Carbon Dioxide (21-31) mmol/L BUN (6.0-23.0) mg/dL Creatinine (0.6-1.5) mg/dL Est Cr Clr Drug Dosing mL/min Estimated GFR (MDRD) ml/min Glucose (60-110) mg/dL POC Glucose 267 H (60-110) mg/dL Calcium (8.8-10.8) mg/dL Ammonia 53 (14-68) UG/DL Procalcitonin 1.47 H (<0.10) ng/mL 07/07/16 07/08/16 07/08/16 Range/Units 16:44 06:19 06:30 WBC 11.94 H (4.0-11.0) K/uL RBC 3.39 L (4.50-5.90) M/uL Hgb 10.8 L (13.0-17.0) g/dL Hct 31.9 L (38.0-50.0) % MCV 94.1 (80.0-98.0) fL MCH 31.9 (27.0-32.0) pg MCHC 33.9 (31.0-37.0) g/dL RDW Std Deviation 56.2 (28.0-62.0) fl RDW Coeff of William 16 H (11.0-15.0) % Plt Count 172 (150-400) K/uL MPV 11.30 (7.40-12.00) fL Neut % (Auto) 96.4 H (48.0-80.0) % Lymph % (Auto) 2.3 L (16.0-40.0) % Caswell % (Auto) 1.3 (0.0-15.0) % Eos % (Auto) 0.0 (0.0-7.0) % Baso % (Auto) 0.0 (0.0-1.5) % Neut # 11.5 H (1.4-5.7) K/uL Lymph # 0.3 L (0.6-2.4) K/uL Caswell # 0.2 (0.0-0.8) K/uL Eos # 0.0 (0.0-0.7) K/uL Baso # 0.0 (0.0-0.1) K/uL Nucleated RBC % 0.0 /100WBC Nucleated RBCs # 0 K/uL INR (0.86-1.11) Sodium (136-146) mmol/L Potassium (3.5-5.1) mmol/L Chloride (98-110) mmol/L Carbon Dioxide (21-31) mmol/L BUN (6.0-23.0) mg/dL Creatinine (0.6-1.5) mg/dL Est Cr Clr Drug Dosing mL/min Estimated GFR (MDRD) ml/min Glucose (60-110) mg/dL POC Glucose 334 H 291 H (60-110) mg/dL Calcium (8.8-10.8) mg/dL Ammonia (14-68) UG/DL Procalcitonin (<0.10) ng/mL 07/08/16 07/08/16 Range/Units 06:30 06:30 WBC (4.0-11.0) K/uL RBC (4.50-5.90) M/uL Hgb (13.0-17.0) g/dL Hct (38.0-50.0) % MCV (80.0-98.0) fL MCH (27.0-32.0) pg MCHC (31.0-37.0) g/dL RDW Std Deviation (28.0-62.0) fl RDW Coeff of William (11.0-15.0) % Plt Count (150-400) K/uL MPV (7.40-12.00) fL Neut % (Auto) (48.0-80.0) % Lymph % (Auto) (16.0-40.0) % Caswell % (Auto) (0.0-15.0) % Eos % (Auto) (0.0-7.0) % Baso % (Auto) (0.0-1.5) % Neut # (1.4-5.7) K/uL Lymph # (0.6-2.4) K/uL Caswell # (0.0-0.8) K/uL Eos # (0.0-0.7) K/uL Baso # (0.0-0.1) K/uL Nucleated RBC % /100WBC Nucleated RBCs # K/uL INR 3.42 H (0.86-1.11) Sodium 136 (136-146) mmol/L Potassium 3.6 (3.5-5.1) mmol/L Chloride 104 (98-110) mmol/L Carbon Dioxide 17 L (21-31) mmol/L BUN 89 H (6.0-23.0) mg/dL Creatinine 3.2 H (0.6-1.5) mg/dL Est Cr Clr Drug Dosing 21.92 mL/min Estimated GFR (MDRD) 19.2 ml/min Glucose 336 H (60-110) mg/dL POC Glucose (60-110) mg/dL Calcium 8.9 (8.8-10.8) mg/dL Ammonia (14-68) UG/DL Procalcitonin (<0.10) ng/mL Med Orders - Current: Current Medications Acetaminophen (Tylenol) 650 mg PO Q4H PRN PRN Reason: Pain Last Admin: 07/07/16 14:30 Dose: 650 mg Acetaminophen/Hydrocodone Bitart (Oxbow 325-5 Mg) 1 tab PO Q3H PRN PRN Reason: Pain Last Admin: 07/04/16 12:49 Dose: 1 tab Albuterol/Ipratropium (Duoneb 3.0-0.5 Mg/3 Ml) 3 ml NEB Q4HRRT PRN PRN Reason: wheezing , sob Allopurinol (Zyloprim) 100 mg PO BID [facility] Last Admin: 07/07/16 20:29 Dose: 100 mg Bisacodyl (Dulcolax) 5 mg PO DAILY PRN PRN Reason: Constipation Bumetanide (Bumex) 4 mg PO BID [facility] Last Admin: 07/07/16 20:28 Dose: 4 mg Carvedilol (Coreg) 50 mg PO BID [facility] Last Admin: 07/08/16 09:36 Dose: 50 mg Diltiazem HCl (Cardizem Cd) 120 mg PO DAILY [facility] Last Admin: 07/08/16 09:36 Dose: 120 mg Fish Oil (Fish Oil) 2 gm PO DAILY [facility] Last Admin: 07/08/16 09:35 Dose: 2 gm Insulin Aspart (Novolog) 0 unit SUBCUT ACBED [facility] PRN Reason: Protocol Last Admin: 07/08/16 07:32 Dose: 6 units Insulin Aspart (Novolog) 10 unit SUBCUT TIDAC [facility] Last Admin: 07/08/16 07:33 Dose: 10 units Insulin Glargine (Lantus Solostar) 20 units SUBCUT DAILY [facility] Last Admin: 07/07/16 08:22 Dose: 20 units Metoprolol Tartrate (Lopressor) 5 mg IVPUSH Q4H PRN PRN Reason: Tachycardia Last Admin: 07/07/16 14:50 Dose: 5 mg Omeprazole (Omeprazole) 20 mg PO ACBRK [facility] Last Admin: 07/08/16 07:03 Dose: 20 mg Ondansetron HCl (Zofran Odt) 4 mg PO Q4H PRN PRN Reason: nausea, able to take PO Potassium Chloride (Klor-Con M20) 40 meq PO DAILY [facility] Last Admin: 07/08/16 09:36 Dose: 40 meq Fluticasone/Salmeterol (Advair Diskus 250-50) 1 puff INH BID [facility] Last Admin: 07/08/16 09:11 Dose: 1 puff Simvastatin (Zocor) 20 mg PO BEDTIME [facility] Last Admin: 07/07/16 20:29 Dose: 20 mg Sodium Bicarbonate (Sodium Bicarbonate) 650 mg PO TID [facility] Last Admin: 07/08/16 07:00 Dose: 650 mg Warfarin Sodium (Coumadin Ask) 1 each PO DAILY@1400 [facility] Last Admin: 07/07/16 13:21 Dose: Not Given Discontinued Medications Acetaminophen (Tylenol) 650 mg PO NOW ONE Stop: 07/01/16 13:48 Last Admin: 07/01/16 13:51 Dose: 650 mg Albuterol/Ipratropium (Duoneb 3.0-0.5 Mg/3 Ml) 3 ml NEB Q4HRRT PRN PRN Reason: Shortness of Breath Benzonatate (Tessalon Perles) 100 mg PO BID [facility] Last Admin: 07/06/16 08:55 Dose: 100 mg Bumetanide (Bumex) 2 mg PO BID [facility] Last Admin: 07/04/16 10:19 Dose: Not Given Carvedilol (Coreg) 25 mg PO BID [facility] Last Admin: 07/07/16 08:21 Dose: 25 mg Carvedilol (Coreg) 25 mg PO ONETIME ONE Stop: 07/07/16 12:39 Last Admin: 07/07/16 12:59 Dose: 25 mg Furosemide (Lasix) 40 mg IVPUSH NOW ONE Stop: 07/06/16 11:58 Last Admin: 07/06/16 12:11 Dose: 40 mg Guaifenesin/Dextromethorphan (Robitussin Dm) 10 ml PO Q6H PRN PRN Reason: Cough Last Admin: 07/04/16 22:49 Dose: 10 ml Sodium Chloride (Normal Saline) 1,000 mls @ 999 mls/hr IV .Bolus ONE Stop: 07/01/16 14:25 Last Admin: 07/01/16 13:28 Dose: 999 mls/hr Sodium Chloride (Normal Saline) 1,000 mls @ 999 mls/hr IV STAT ONE Stop: 07/01/16 15:50 Last Admin: 07/01/16 14:53 Dose: 999 mls/hr Piperacillin Sod/Tazobactam (Sod 4.5 gm/ Sodium Chloride) 100 mls @ 100 mls/hr IV ONETIME ONE Stop: 07/01/16 15:59 Last Admin: 07/01/16 15:13 Dose: 100 mls/hr Piperacillin Sod/Tazobactam (Sod 2.25 gm/ Sodium Chloride) 50 mls @ 100 mls/hr IV Q6H [facility] Last Admin: 07/03/16 11:25 Dose: Not Given Sodium Chloride (Normal Saline) 1,000 mls @ 125 mls/hr IV ASDIRECTED [facility] Last Admin: 07/02/16 03:11 Dose: 125 mls/hr Sodium Chloride (Normal Saline) 1,000 mls @ 150 mls/hr IV ASDIRECTED [facility] Last Admin: 07/05/16 14:09 Dose: 150 mls/hr Ceftriaxone Sodium/Dextrose 1 (gm/ Premix) 50 mls @ 100 mls/hr IV Q24H [facility] Last Admin: 07/04/16 10:32 Dose: 100 mls/hr Ciprofloxacin/Dextrose 200 mg/ (Premix) 100 mls @ 100 mls/hr IV Q12H [facility] Last Admin: 07/04/16 22:41 Dose: 100 mls/hr Ciprofloxacin/Dextrose 400 mg/ (Premix) 200 mls @ 200 mls/hr IV Q24H [facility] Last Admin: 07/07/16 11:27 Dose: 200 mls/hr Sodium Chloride (Sodium Chloride 0.45%) 1,000 mls @ 150 mls/hr IV ASDIRECTED [facility] Last Admin: 07/06/16 11:20 Dose: 150 mls/hr Vancomycin HCl 1,500 mg/ (Sodium Chloride) 500 mls @ 333.333 mls/hr IV Q24H [facility] Last Admin: 07/06/16 16:24 Dose: 333.333 mls/hr Piperacillin Sod/Tazobactam (Sod 3.375 gm/ Sodium Chloride) 50 mls @ 100 mls/ hr IV Q6H [facility] Last Admin: 07/07/16 10:17 Dose: Not Given Sodium Chloride (Sodium Chloride 0.45%) 1,000 mls @ 75 mls/hr IV ASDIRECTED [facility] Last Admin: 07/07/16 11:45 Dose: 75 mls/hr Insulin Glargine (Lantus Solostar) 10 units SUBCUT DAILY [facility] Last Admin: 07/03/16 11:23 Dose: Not Given Lactulose (Chronulac) 10 gm PO ONETIME ONE Stop: 07/07/16 02:45 Last Admin: 07/07/16 03:22 Dose: 10 gm Methylprednisolone Sodium Succinate (Solu-Medrol) 40 mg IVPUSH Q8H [facility] Last Admin: 07/08/16 02:37 Dose: 40 mg Metolazone (Zaroxolyn) 5 mg PO MoWeFr@0800 [facility] Last Admin: 07/03/16 14:28 Dose: 5 mg Metoprolol Tartrate (Lopressor) 5 mg IVPUSH Q4H PRN PRN Reason: Other Stop: 07/02/16 01:16 Last Admin: 07/01/16 20:02 Dose: 5 mg Morphine Sulfate (Morphine) 2 mg IVPUSH Q2H PRN PRN Reason: Pain (severe 7-10) Stop: 07/02/16 17:01 Oxycodone HCl (Oxycontin) 10 mg PO Q12HR [facility] Last Admin: 07/06/16 08:54 Dose: 10 mg Potassium Chloride (Klor-Con M20) 40 meq PO ONETIME ONE Stop: 07/06/16 18:54 Last Admin: 07/06/16 19:10 Dose: Not Given Sodium Bicarbonate (Sodium Bicarbonate) 650 mg PO TID [facility] Temazepam (Restoril) 15 mg PO BEDTIME PRN PRN Reason: Sleep Warfarin Sodium (Coumadin) 3 mg PO DAILY@1400 [facility] Last Admin: 07/03/16 13:00 Dose: 3 mg Warfarin Sodium (Coumadin) 2 mg PO MoFr@1400 [facility] Warfarin Sodium (Coumadin Ask) 1 each PO DAILY@1400 [facility] Last Admin: 07/06/16 15:10 Dose: Not Given - Exam General: Reports: alert, oriented HEENT: Reports: Pupils equal, EOMI Neck: Reports: supple Lungs: Reports: Decreased breath sounds Cardiovascular: Reports: regular rate, regular rhythm Abdomen: Reports: bowel sounds present, soft Back Exam: Reports: normal inspection, full range of motion Extremities: Reports: edema (+3 lower extremity edema. venous stasis changes.) Neurological: Reports: no new focal deficit Psy/Mental Status: Reports: alert, normal affect, normal mood *Q Meaningful Use (DIS) - VTE *Q VTE Criteria *Q: - Stroke *Q Stroke Criteria *Q: - AMI *Q AMI Criteria *Q: <Don Peterson - Last Filed: 07/13/16 18:37> Discharge Summary - Hospital Course Free Text/Narrative:: Poatient was at home on Bumex 4 mg po BId . cardio recommended to hold his metolazone. Patient came here with a creatinine of 3.9 , nephrology recommende to hold diuretics and give patient iv hydration. His Creatinine improved to 3. During the time patient had Ams , his ammonia level was elevated in the 80' and also patient received 2 dosages of oxycodone ER 10 mg q 12h for back pain. he was placed on O2 nasal canula and his mental status worsened as patient is a CO2 retainer. He was treated with Bipap at room air , was recommended patient should not be given O2 to have O 2 sat more than 91-92% Patient was given lactulose for hyperammoniemia. He has a recent abd sonogram which read nl liver. Patrient was seen and examined and discussed with resident, agree with discharge summary - Discharge Diagnosis/Problem(s) (1) Acute on chronic kidney failure SNOMED Code(s): 384529133 ICD Code: N17.9 - ACUTE KIDNEY FAILURE, UNSPECIFIED; N18.9 - CHRONIC KIDNEY DISEASE, UNSPECIFIED Status: Acute (2) Sepsis SNOMED Code(s): 72560797 ICD Code: A41.9 - SEPSIS, UNSPECIFIED ORGANISM Status: Acute (3) UTI, Urinary tract infectious disease SNOMED Code(s): 18875575 ICD Code: N39.0 - URINARY TRACT INFECTION, SITE NOT SPECIFIED Status: Acute - Patient Summary/Data Consults: Consultations 07/03/16 10:57 PT Evaluation and Treatment [CONS] Routine 07/05/16 10:31 PT Evaluation and Treatment [CONS] Routine 07/07/16 12:30 Consult to Physician [CONS] Routine 07/08/16 19:20 Consult to Home Care [Consult to Home Health] [CONS] Routine - Patient Data Vitals - Most Recent: Last Vital Signs Temp 97.7 F 07/08/16 08:22 Pulse 129 H 07/08/16 09:36 Resp 18 07/08/16 08:22 BP 123/79 07/08/16 09:36 Pulse Ox 94 L 07/08/16 08:22 Med Orders - Current: Current Medications Discontinued Medications Acetaminophen (Tylenol) 650 mg PO NOW ONE Stop: 07/01/16 13:48 Last Admin: 07/01/16 13:51 Dose: 650 mg Acetaminophen (Tylenol) 650 mg PO Q4H PRN PRN Reason: Pain Last Admin: 07/07/16 14:30 Dose: 650 mg Acetaminophen/Hydrocodone Bitart ([place] 325-5 Mg) 1 tab PO Q3H PRN PRN Reason: Pain Last Admin: 07/04/16 12:49 Dose: 1 tab Albuterol/Ipratropium (Duoneb 3.0-0.5 Mg/3 Ml) 3 ml NEB Q4HRRT PRN PRN Reason: Shortness of Breath Albuterol/Ipratropium (Duoneb 3.0-0.5 Mg/3 Ml) 3 ml NEB Q4HRRT PRN PRN Reason: wheezing , sob Allopurinol (Zyloprim) 100 mg PO BID [facility] Last Admin: 07/08/16 09:39 Dose: 100 mg Benzonatate (Tessalon Perles) 100 mg PO BID [facility] Last Admin: 07/06/16 08:55 Dose: 100 mg Bisacodyl (Dulcolax) 5 mg PO DAILY PRN PRN Reason: Constipation Bumetanide (Bumex) 2 mg PO BID [facility] Last Admin: 07/04/16 10:19 Dose: Not Given Bumetanide (Bumex) 4 mg PO BID [facility] Last Admin: 07/08/16 09:44 Dose: 4 mg Carvedilol (Coreg) 25 mg PO BID [facility] Last Admin: 07/07/16 08:21 Dose: 25 mg Carvedilol (Coreg) 25 mg PO ONETIME ONE Stop: 07/07/16 12:39 Last Admin: 07/07/16 12:59 Dose: 25 mg Carvedilol (Coreg) 50 mg PO BID [facility] Last Admin: 07/08/16 09:36 Dose: 50 mg Diltiazem HCl (Cardizem Cd) 120 mg PO DAILY [facility] Last Admin: 07/08/16 09:36 Dose: 120 mg Fish Oil (Fish Oil) 2 gm PO DAILY [facility] Last Admin: 07/08/16 09:35 Dose: 2 gm Furosemide (Lasix) 40 mg IVPUSH NOW ONE Stop: 07/06/16 11:58 Last Admin: 07/06/16 12:11 Dose: 40 mg Guaifenesin/Dextromethorphan (Robitussin Dm) 10 ml PO Q6H PRN PRN Reason: Cough Last Admin: 07/04/16 22:49 Dose: 10 ml Sodium Chloride (Normal Saline) 1,000 mls @ 999 mls/hr IV .Bolus ONE Stop: 07/01/16 14:25 Last Admin: 07/01/16 13:28 Dose: 999 mls/hr Sodium Chloride (Normal Saline) 1,000 mls @ 999 mls/hr IV STAT ONE Stop: 07/01/16 15:50 Last Admin: 07/01/16 14:53 Dose: 999 mls/hr Piperacillin Sod/Tazobactam (Sod 4.5 gm/ Sodium Chloride) 100 mls @ 100 mls/hr IV ONETIME ONE Stop: 07/01/16 15:59 Last Admin: 07/01/16 15:13 Dose: 100 mls/hr Piperacillin Sod/Tazobactam (Sod 2.25 gm/ Sodium Chloride) 50 mls @ 100 mls/hr IV Q6H [facility] Last Admin: 07/03/16 11:25 Dose: Not Given Sodium Chloride (Normal Saline) 1,000 mls @ 125 mls/hr IV ASDIRECTED [facility] Last Admin: 07/02/16 03:11 Dose: 125 mls/hr Sodium Chloride (Normal Saline) 1,000 mls @ 150 mls/hr IV ASDIRECTED [facility] Last Admin: 07/05/16 14:09 Dose: 150 mls/hr Ceftriaxone Sodium/Dextrose 1 (gm/ Premix) 50 mls @ 100 mls/hr IV Q24H [facility] Last Admin: 07/04/16 10:32 Dose: 100 mls/hr Ciprofloxacin/Dextrose 200 mg/ (Premix) 100 mls @ 100 mls/hr IV Q12H [facility] Last Admin: 07/04/16 22:41 Dose: 100 mls/hr Ciprofloxacin/Dextrose 400 mg/ (Premix) 200 mls @ 200 mls/hr IV Q24H [facility] Last Admin: 07/07/16 11:27 Dose: 200 mls/hr Sodium Chloride (Sodium Chloride 0.45%) 1,000 mls @ [facility] Last Admin: 07/06/16 11:20 Dose: 150 mls/hr Vancomycin HCl 1,500 mg/ (Sodium Chloride) 500 mls @ 333.333 mls/hr IV Q24H [facility] Last Admin: 07/06/16 16:24 Dose: 333.333 mls/hr Piperacillin Sod/Tazobactam (Sod 3.375 gm/ Sodium Chloride) 50 mls @ 100 mls/ hr IV Q6H [facility] Last Admin: 07/07/16 10:17 Dose: Not Given Sodium Chloride (Sodium Chloride 0.45%) 1,000 mls @ 75 [facility] Last Admin: 07/07/16 11:45 Dose: 75 mls/hr Insulin Aspart (Novolog) 0 unit SUBCUT ACBED [facility] PRN Reason: Protocol Last Admin: 07/08/16 11:59 Dose: Not Given Insulin Aspart (Novolog) 10 unit SUBCUT TIDAC [facility] Last Admin: 07/08/16 11:59 Dose: Not Given Insulin Glargine (Lantus Solostar) 10 units SUBCUT DAILY [facility] Last Admin: 07/03/16 11:23 Dose: Not Given Insulin Glargine (Lantus Solostar) 20 units SUBCUT DAILY [facility] Last Admin: 07/08/16 09:43 Dose: 20 units Lactulose (Chronulac) 10 gm PO ONETIME ONE Stop: 07/07/16 02:45 Last Admin: 07/07/16 03:22 Dose: 10 gm Methylprednisolone Sodium Succinate (Solu-Medrol) 40 mg IVPUSH Q8H [facility] Last Admin: 07/08/16 02:37 Dose: 40 mg Metolazone (Zaroxolyn) 5 mg PO MoWeFr@0800 [facility] Last Admin: 07/03/16 14:28 Dose: 5 mg Metoprolol Tartrate (Lopressor) 5 mg IVPUSH Q4H PRN PRN Reason: Other Stop: 07/02/16 01:16 Last Admin: 07/01/16 20:02 Dose: 5 mg Metoprolol Tartrate (Lopressor) 5 mg IVPUSH Q4H PRN PRN Reason: Tachycardia Last Admin: 07/07/16 14:50 Dose: 5 mg Morphine Sulfate (Morphine) 2 mg IVPUSH Q2H PRN PRN Reason: Pain (severe 7-10) Stop: 07/02/16 17:01 Omeprazole (Omeprazole) 20 mg PO ACBRK [facility] Last Admin: 07/08/16 07:03 Dose: 20 mg Ondansetron HCl (Zofran Odt) 4 mg PO Q4H PRN PRN Reason: nausea, able to take PO Oxycodone HCl (Oxycontin) 10 mg PO Q12HR [facility] Last Admin: 07/06/16 08:54 Dose: 10 mg Potassium Chloride (Klor-Con M20) 40 meq PO DAILY [facility] Last Admin: 07/08/16 09:36 Dose: 40 meq Potassium Chloride (Klor-Con M20) 40 meq PO ONETIME ONE Stop: 07/06/16 18:54 Last Admin: 07/06/16 19:10 Dose: Not Given Fluticasone/Salmeterol (Advair Diskus 250-50) 1 puff INH BID [facility] Last Admin: 07/08/16 09:11 Dose: 1 puff Simvastatin (Zocor) 20 mg PO BEDTIME [facility] Last Admin: 07/07/16 20:29 Dose: 20 mg Sodium Bicarbonate (Sodium Bicarbonate) 650 mg PO TID [facility] Sodium Bicarbonate (Sodium Bicarbonate) 650 mg PO TID [facility] Last Admin: 07/08/16 07:00 Dose: 650 mg Temazepam (Restoril) 15 mg PO BEDTIME PRN PRN Reason: Sleep Warfarin Sodium (Coumadin) 3 mg PO DAILY@1400 [facility] Last Admin: 07/03/16 13:00 Dose: 3 mg Warfarin Sodium (Coumadin) 2 mg PO MoFr@1400 [facility] Warfarin Sodium (Coumadin Ask) 1 each PO DAILY@1400 [facility] Last Admin: 07/06/16 15:10 Dose: Not Given Warfarin Sodium (Coumadin Ask) 1 each PO DAILY@1400 [facility] Last Admin: 07/07/16 13:21 Dose: Not Given *Q Meaningful Use (DIS) - VTE *Q VTE Criteria *Q: - Stroke *Q Stroke Criteria *Q: - AMI *Q AMI Criteria *Q:
[2016-07-08] MEDS: Insulin Glargine,Human Rec. Analog 100 Units/ML 3 ML Pen SUBCUT SCH (09:43)
[2016-07-08] MEDS: Bumetanide 1 MG Tab PO SCH (09:44)
== END 2016-07-08 11:35 | disposition home or self-care (01) | DRG 690 ==
LOC: MW.ED 12:54 → MW.ICU 15:53 → UNDOADMIN 17:58 → MW.ICU 17:58 → MW.OB 07-04 13:27 → MW.ICU 07-04 16:01 → MW.MS 07-04 16:01 → MW.ICU 07-06 22:32 → MW.MS 07-06 22:32 → MW.ICU 07-07 18:18 → MW.MS 07-07 18:18 → UNDODISIN 07-08 11:35
PROVIDERS: ADMIT Family Medicine; ATTEND Family Medicine
DX: N39.0 Urinary tract infection, site not specified (principal); N18.4 Chronic kidney disease, stage 4 (severe); N17.9 Acute kidney failure, unspecified; E72.20 Disorder of urea cycle metabolism, unspecified; I12.9 Hypertensive chronic kidney disease with stage 1 through stage 4 chronic kidney disease, or unspecified chronic kidney disease; I10 Essential (primary) hypertension; B96.1 Klebsiella pneumoniae [K. pneumoniae] as the cause of diseases classified elsewhere; F32.9 Major depressive disorder, single episode, unspecified; R50.9 Fever, unspecified; B96.89 Other specified bacterial agents as the cause of diseases classified elsewhere; R41.82 Altered mental status, unspecified; R06.02 Shortness of breath; I48.91 Unspecified atrial fibrillation; I50.9 Heart failure, unspecified; E78.00 Pure hypercholesterolemia, unspecified; E11.9 Type 2 diabetes mellitus without complications; J44.9 Chronic obstructive pulmonary disease, unspecified; R06.89 Other abnormalities of breathing; Z88.8 Allergy status to other drugs, medicaments and biological substances; Z79.899 Other long term (current) drug therapy; Z79.01 Long term (current) use of anticoagulants; Z79.4 Long term (current) use of insulin; Z86.73 Personal history of transient ischemic attack (TIA), and cerebral infarction without residual deficits; Z85.51 Personal history of malignant neoplasm of bladder
CPT/HCPCS: 36415; 71020; 80053; 81001; 82150; 83605; 83690; 83735; 84484; 85025; 85610; 87040 ×2; 87077 ×2; 87086; 87088; 87186 ×3; 93005; 96361; 96365; 99285; A9270; J2543; J7030; J7040 ×2; 36600; 70450; 70450-26; 71010; 71010-26; 76705; 76705-26; 80048; 82140; 82803; 82962; 83615; 84100; 84145; 85027; 94640; 94660; 97161-GP; 97530-GP; 97802; 99284; J0696; J0744; J1815-GY; J1940; J2920; J3370; J7050

== ENCOUNTER → 2016-07-13 | Outpatient (CLI) | payer MEDICARE, BC | LOC: MW.CHIM 13:27 | PROVIDERS: ATTEND Internal Medicine | DX: E11.65 Type 2 diabetes mellitus with hyperglycemia (principal); D64.9 Anemia, unspecified; I48.91 Unspecified atrial fibrillation; N18.9 Chronic kidney disease, unspecified; I50.9 Heart failure, unspecified; I83.009 Varicose veins of unspecified lower extremity with ulcer of unspecified site; L97.909 Non-pressure chronic ulcer of unspecified part of unspecified lower leg with unspecified severity | CPT/HCPCS: 36415; 80053; 83540; 83880; 85025; 85610; 99214 ==

== ENCOUNTER → 2016-07-31 | Outpatient (CLI) | payer MEDICARE, BC | LOC: MW.CHIM 08:00 | PROVIDERS: ATTEND Internal Medicine | DX: I48.91 Unspecified atrial fibrillation (principal); N18.9 Chronic kidney disease, unspecified; I50.9 Heart failure, unspecified; E78.00 Pure hypercholesterolemia, unspecified | CPT/HCPCS: 99214 ==

== ENCOUNTER → 2016-08-02 | Outpatient (CLI) | payer MEDICARE, BC | END | disposition home or self-care (01) | LOC: MW.LAB 15:17 | PROVIDERS: ATTEND Internal Medicine | DX: N18.3 Chronic kidney disease, stage 3 (moderate) (principal); R60.9 Edema, unspecified; E11.65 Type 2 diabetes mellitus with hyperglycemia; E64.9 Sequelae of unspecified nutritional deficiency; M10.9 Gout, unspecified; I48.91 Unspecified atrial fibrillation; I50.9 Heart failure, unspecified | CPT/HCPCS: 36415; 80053; 83036; 83540; 83735; 83880; 84100; 85025 ==

== ENCOUNTER → 2016-08-08 | Outpatient (CLI) | payer MEDICARE, BC | LOC: MW.CHIM 08:00 | PROVIDERS: ATTEND Internal Medicine | DX: E11.65 Type 2 diabetes mellitus with hyperglycemia (principal); I87.2 Venous insufficiency (chronic) (peripheral); N18.9 Chronic kidney disease, unspecified; I48.91 Unspecified atrial fibrillation | CPT/HCPCS: 99214 ==

== ENCOUNTER → 2016-08-31 | Outpatient (CLI) | payer MEDICARE, BC | LOC: MW.CHIM 08:00 | PROVIDERS: ATTEND Internal Medicine | DX: I48.91 Unspecified atrial fibrillation (principal); I50.9 Heart failure, unspecified; I42.0 Dilated cardiomyopathy; E11.65 Type 2 diabetes mellitus with hyperglycemia | CPT/HCPCS: 99214 ==

== ENCOUNTER → 2016-09-07 | Outpatient (CLI) | payer MEDICARE, BC | LOC: MW.CHIM 13:40 | PROVIDERS: ATTEND Internal Medicine | DX: E11.65 Type 2 diabetes mellitus with hyperglycemia (principal); D64.9 Anemia, unspecified; N18.9 Chronic kidney disease, unspecified; I50.9 Heart failure, unspecified; I87.2 Venous insufficiency (chronic) (peripheral); I48.91 Unspecified atrial fibrillation | CPT/HCPCS: 36415; 80048; 83880; 85025; 99214 ==

== ENCOUNTER → 2016-09-08 | Outpatient (CLI) | payer MEDICARE, BC | LOC: MW.RT 09:25 | PROVIDERS: ADMIT Family Medicine; ATTEND Internal Medicine | DX: I48.91 Unspecified atrial fibrillation (principal) ==

== ENCOUNTER → 2016-09-14 | Outpatient (CLI) | payer MEDICARE, BC | LOC: MW.CHFP 08:00 | PROVIDERS: ATTEND Student in an Organized Health Care Education/Training Program | DX: Z51.81 Encounter for therapeutic drug level monitoring (principal); Z79.01 Long term (current) use of anticoagulants; I48.91 Unspecified atrial fibrillation | CPT/HCPCS: 85610; 99211 ==

== ENCOUNTER → 2016-09-26 | Outpatient (CLI) | payer MEDICARE, BC | LOC: MW.LAB 11:21 | PROVIDERS: ATTEND Internal Medicine | DX: N18.4 Chronic kidney disease, stage 4 (severe) (principal); R60.9 Edema, unspecified | CPT/HCPCS: 36415; 80069; 82306; 82310; 83970; 84550; 85027 ==

== ENCOUNTER 2016-11-23 06:56 | Emergency (ER) | payer MEDICARE, BC, OTHER ==
--- NOTE | 2016-11-23 07:27 | EDM.PDOC ---
ED HPI GENERAL MEDICAL PROBLEM - General Chief Complaint: Genitourinary Problem Stated Complaint: UTI Time Seen by Provider: 11/23/16 06:57 generalized body aches Pain Score (Numeric/FACES): 7 - Related Data Allergies Allergy/AdvReac Type Severity Reaction Status Date / Time lisinopril Allergy Cough Verified 11/23/16 07:23 green hendrix peppers Allergy Vomiting Uncoded 11/23/16 07:23 Home Meds: Home Meds Allopurinol [Zyloprim] 100 mg PO BID 07/01/16 [History] Calcitriol [Rocaltrol] 0.25 mcg PO DAILY 07/01/16 [History] Ferrous Sulfate [Iron] 325 mg PO BID 07/01/16 [History] Insulin Glarg,Human.Rec.Analog [Lantus] See Protocol SUBCUT DAILY 07/01/16 [ History] [place]-3/DHA/Epa/Fish Oil [Fish Oil 1,000 mg Softgel] 2 gm PO DAILY 07/01/16 [ History] Omeprazole Magnesium [Prilosec Otc] 20 mg PO ACBREAKFAST 07/01/16 [History] Potassium Chloride 0.5 tab PO DAILY 07/01/16 [History] Simvastatin [Zocor] 20 mg PO BEDTIME 07/01/16 [History] Warfarin [Coumadin] 2 mg PO DAILY 07/01/16 [History] Warfarin [Coumadin] 3 mg PO DAILY 07/01/16 [History] Bumetanide [Bumex] 4 mg PO BID tablet 07/08/16 [Rx] Diltiazem [Cardizem CD] 120 mg PO DAILY cap.cd 07/08/16 [Rx] Fluticasone/Salmeterol [Advair Diskus 250-50] 1 puff INH BID #1 inhaler [Rx] Insulin Glarg,Human.Rec.Analog [LantUS Solostar] 20 units SUBCUT DAILY #1 pen [Rx] Sodium Bicarbonate 650 mg PO TID #30 tablet 07/08/16 [Rx] Past Medical History - Past Health History Medical/Surgical History: Denies Medical/Surgical History HEENT History: Reports: Other (See Below) Other HEENT History: corrective glasses Cardiovascular History: Reports: Afib, Heart Failure, High Cholesterol, Hypertension Respiratory History: Reports: None Gastrointestinal History: Reports: Hiatal Hernia Genitourinary History: Reports: Urostomy Musculoskeletal History: Reports: Arthritis, Gout Neurological History: Reports: CVA Psychiatric History: Reports: None Endocrine/Metabolic History: Reports: Diabetes, Type II, Obesity/BMI 30+ Oncologic (Cancer) History: Reports: Bladder Dermatologic History: Reports: Cellulitis - Infectious Disease History Infectious Disease History: Reports: Chicken Pox, Measles, Mumps, Shingles - Past Surgical History HEENT Surgical History: Reports: Cataract Surgery Male Surgical History: Reports: Other (See Below) Social & Family History - Family History Family Medical History: Noncontributory HEENT: Reports: Cataract Cardiac: Reports: High Cholesterol, Hypertension Musculoskeletal: Reports: Arthritis Psychiatric: Reports: Depression Oncologic: Reports: Prostate - Tobacco Use Smoking Status *Q: Former Smoker Years of Tobacco use: 15 Packs/Tins Daily: 1.5 Used Tobacco, but Quit: No Month Tobacco Last Used: 1975 Second Hand Smoke Exposure: No - Caffeine Use Caffeine Use: Reports: Coffee Caffeine Use Comment: 1 cup/day - Alcohol Use Days Per Week of Alcohol Use: 2 Number of Drinks Per Day: 2 Total Drinks Per Week: 4 - Recreational Drug Use Recreational Drug Use: No Drug Use in Last 12 Months: No Course - Vital Signs Last Recorded V/S: Last Vital Signs Temp 35.6 C 11/23/16 07:23 Pulse 102 H 11/23/16 07:23 Resp 18 11/23/16 07:23 BP 114/56 L 11/23/16 07:23 Pulse Ox 93 L 11/23/16 07:23 Departure - Departure Forms: ED Department Discharge
[2016-11-23] MEDS ORDERED: Sodium Chloride 0.9% 1,000 ML IV ONE ×2 (07:33→10:18)
--- NOTE | 2016-11-23 08:03 | EDM.PDOC ---
ED HPI GENERAL MEDICAL PROBLEM - General Chief Complaint: Genitourinary Problem Stated Complaint: UTI Time Seen by Provider: 11/23/16 06:57 Source of Information: Reports: Patient History Limitations: Reports: No Limitations - History of Present Illness INITIAL COMMENTS - FREE TEXT/NARRATIVE: History of present illness: []Patient had a positive UA done in his doctor's office 3 days ago and started on Cipro. Taking it for 2 days but now feels tired, body aches and has a cough. Denies any abdominal pain, nausea, vomiting and states that his fevers and chills have diminished. Patient has a history of bladder cancer and does have a urostomy. Review of systems: As per history of present illness and below otherwise all systems reviewed and negative. Past medical history: As per history of present illness and as reviewed below otherwise noncontributory. Surgical history: As per history of present illness and as reviewed below otherwise noncontributory. Social history: No reported history of drug or alcohol abuse. Family history: As per history of present illness and as reviewed below otherwise noncontributory. Physical exam: General: Well developed, well nourished in no respiratory distress HEENT: Atraumatic, normocephalic, pupils reactive, icteric sclera, negative for conjunctival pallor, mucous membranes moist, throat clear, neck supple, nontender, trachea midline. Lungs: Clear to auscultation, breath sounds equal bilaterally, chest nontender. Heart: S1S2, regular, negative for clicks, rubs, or JVD. Abdomen: Soft, nondistended, nontender. Negative for masses or hepatosplenomegaly. Negative for costovertebral tenderness. Pelvis: Stable nontender. Genitourinary: Deferred. Rectal: Deferred. Extremities: Atraumatic, negative for cords or calf pain. Neurovascular unremarkable. Neuro: Awake, alert, oriented. Cranial nerves II through XII unremarkable. Cerebellum unremarkable. Motor and sensory unremarkable throughout. Exam nonfocal. Diagnostics: []CBC, chemistry, chest x-ray showing elevated white count with a shift, elevated BUN/creatinine from previous, mildly elevated liver enzymes. INR 2.6. Ultrasound done due to elevated alkaline phosphatase and elevated bilirubin showing gallbladder wall and gallstones suggesting cholecystitis Therapeutics: []IV fluids and IV Cipro given Impression: []UTI, right pleural effusion, cholecystitis Plan: []Hospitalist was consulted and Dr. 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 Patient prefers to go to [place] as that is where his mining helper Dr. Montalvo. Dr. Monge in [place] accepted this patient and Dr. Alejo from general surgery was also consulted. Patient will be transported by ambulance. Definitive disposition and diagnosis as appropriate pending reevaluation and review of above. generalized body aches Pain Score (Numeric/FACES): 7 - Related Data Allergies Allergy/AdvReac Type Severity Reaction Status Date / Time lisinopril Allergy Cough Verified 11/23/16 07:23 green hendrix peppers Allergy Vomiting Uncoded 11/23/16 07:23 Home Meds: Home Meds Allopurinol [Zyloprim] 100 mg PO BID 07/01/16 [History] Calcitriol [Rocaltrol] 0.25 mcg PO DAILY 07/01/16 [History] Ferrous Sulfate [Iron] 325 mg PO BID 07/01/16 [History] [place]-3/DHA/Epa/Fish Oil [Fish Oil 1,000 mg Softgel] 1,000 mg PO DAILY 07/01/16 [History] Omeprazole Magnesium [Prilosec Otc] 20 mg PO ACBREAKFAST 07/01/16 [History] Potassium Chloride 10 tab PO DAILY 07/01/16 [History] Simvastatin [Zocor] 20 mg PO BEDTIME 07/01/16 [History] Warfarin [Coumadin] 4 mg PO DAILY 07/01/16 [History] Diltiazem [Cardizem CD] 120 mg PO DAILY cap.cd 07/08/16 [Rx] Sodium Bicarbonate 650 mg PO TID #30 tablet 07/08/16 [Rx] Bumetanide [Bumex] 2 mg PO QID 11/23/16 [History] Carvedilol 6.25 mg PO BID 11/23/16 [History] Chlorthalidone 25 mg PO TUFR@0800 11/23/16 [History] Cyanocobalamin (Vitamin B12) [Vitamin B12] 1,000 mcg PO DAILY 11/23/16 [History] Fluticasone/Salmeterol [Advair Diskus 250-50] 1 puff INH BID PRN 11/23/16 [ History] Folic Acid 1 mg PO DAILY 11/23/16 [History] Insulin Aspart [NovoLOG] 10 units SUBCUT TIDAC 11/23/16 [History] Insulin Glarg,Human.Rec.Analog [LantUS Solostar] 24 units SUBCUT DAILY 11/23/16 [History] Magnesium Oxide 420 mg PO BID 11/23/16 [History] Past Medical History - Past Health History Medical/Surgical History: Denies Medical/Surgical History HEENT History: Reports: Other (See Below) Other HEENT History: corrective glasses Cardiovascular History: Reports: Afib, Heart Failure, High Cholesterol, Hypertension Respiratory History: Reports: None Gastrointestinal History: Reports: Hiatal Hernia Genitourinary History: Reports: Urostomy Musculoskeletal History: Reports: Arthritis, Gout Neurological History: Reports: CVA Psychiatric History: Reports: None Endocrine/Metabolic History: Reports: Diabetes, Type II, Obesity/BMI 30+ Oncologic (Cancer) History: Reports: Bladder Dermatologic History: Reports: Cellulitis - Infectious Disease History Infectious Disease History: Reports: Mumps - Past Surgical History HEENT Surgical History: Reports: Cataract Surgery Male Surgical History: Reports: Other (See Below) Other Male Surgeries/Procedures: urostomy Musculoskeletal Surgical History: Reports: None Social & Family History - Family History Family Medical History: Noncontributory HEENT: Reports: Cataract Cardiac: Reports: High Cholesterol, Hypertension Musculoskeletal: Reports: Arthritis Psychiatric: Reports: Depression Oncologic: Reports: Prostate - Tobacco Use Smoking Status *Q: Never Smoker Years of Tobacco use: 15 Packs/Tins Daily: 1.5 Used Tobacco, but Quit: No Month Tobacco Last Used: 1975 Second Hand Smoke Exposure: No - Caffeine Use Caffeine Use: Reports: Coffee Caffeine Use Comment: 1 cup/day - Alcohol Use Days Per Week of Alcohol Use: 7 Number of Drinks Per Day: 2 Total Drinks Per Week: 14 - Recreational Drug Use Recreational Drug Use: No Drug Use in Last 12 Months: No ED ROS GENERAL - Review of Systems Review Of Systems: See Below (See history of present illness) ED EXAM, RENAL/ - Physical Exam Exam: See Below (See history of present illness) Course - Vital Signs Last Recorded V/S: Last Vital Signs Temp 35.6 C 11/23/16 07:23 Pulse 98 11/23/16 08:52 Resp 18 11/23/16 08:52 BP 129/68 11/23/16 08:52 Pulse Ox 92 L 11/23/16 08:52 - Orders/Labs/Meds Orders: Active Orders 24 hr Category Date Time Status CULTURE BLOOD [BC] Stat Lab 11/23/16 07:43 Received CULTURE BLOOD [BC] Stat Lab 11/23/16 08:08 Received UA W/MICROSCOPIC [URIN] Stat Lab 11/23/16 10:17 Uncollected Ciprofloxacin in D5W [Cipro in D5W 400 MG/200 ML] 400 Med 11/23/16 08:15 Active mg Premix Bag 1 bag IV Q12H Blood Culture x2 Reflex Set [OM.PC] Stat Oth 11/23/16 07:32 Ordered Saline Lock Insert [OM.PC] Stat Oth 11/23/16 07:32 Ordered Saline Lock Insert [OM.PC] Stat Oth 11/23/16 10:17 Ordered Medication Orders Ciprofloxacin/Dextrose 400 mg/ (Premix) 200 mls @ 200 mls/hr IV Q12H [place] Last Admin: 11/23/16 08:47 Dose: 200 mls/hr Labs: Laboratory Tests 11/23/16 11/23/16 11/23/16 Range/Units 07:43 07:43 07:43 WBC 14.70 H (4.0-11.0) K/uL RBC 3.65 L (4.50-5.90) M/uL Hgb 11.8 L (13.0-17.0) g/dL Hct 34.2 L (38.0-50.0) % MCV 93.7 (80.0-98.0) fL MCH 32.3 H (27.0-32.0) pg MCHC 34.5 (31.0-37.0) g/dL RDW Std Deviation 52.3 (28.0-62.0) fl RDW Coeff of William 15 (11.0-15.0) % Plt Count 109 L (150-400) K/uL MPV 11.60 (7.40-12.00) fL Neut % (Auto) 89.8 H (48.0-80.0) % Lymph % (Auto) 2.0 L (16.0-40.0) % [place] % (Auto) 7.1 (0.0-15.0) % Eos % (Auto) 1.0 (0.0-7.0) % Baso % (Auto) 0.1 (0.0-1.5) % Neut # (Auto) 13.2 H (1.4-5.7) K/uL Lymph # (Auto) 0.3 L (0.6-2.4) K/uL [place] # (Auto) 1.0 H (0.0-0.8) K/uL Eos # (Auto) 0.2 (0.0-0.7) K/uL Baso # (Auto) 0.0 (0.0-0.1) K/uL Nucleated RBC % 0.0 /100WBC Nucleated RBCs # 0 K/uL INR 2.60 H (0.86-1.11) Lactate (0.20-2.00) mmol/L Sodium 130 L (136-146) mmol/L Potassium 3.9 (3.5-5.1) mmol/L Chloride 89 L (98-110) mmol/L Carbon Dioxide 27 (21-31) mmol/L BUN 86 H (6.0-23.0) mg/dL Creatinine 4.2 H (0.6-1.5) mg/dL Est Cr Clr Drug Dosing TNP Estimated GFR (MDRD) 14.0 ml/min Glucose 120 H (60-110) mg/dL Calcium 9.6 (8.8-10.8) mg/dL Total Bilirubin 1.6 H (0.1-1.5) mg/dL AST 64 H (5-40) IU/L ALT 34 (8-54) IU/L Alkaline Phosphatase 281 H (40-150) Total Protein 6.9 (6.0-8.0) g/dL Albumin 3.6 (3.4-4.8) g/dL Globulin 3.3 (2.0-3.5) g/dL Albumin/Globulin Ratio 1.1 L (1.3-2.8) 11/23/16 Range/Units 09:02 WBC (4.0-11.0) K/uL RBC (4.50-5.90) M/uL Hgb (13.0-17.0) g/dL Hct (38.0-50.0) % MCV (80.0-98.0) fL MCH (27.0-32.0) pg MCHC (31.0-37.0) g/dL RDW Std Deviation (28.0-62.0) fl RDW Coeff of William (11.0-15.0) % Plt Count (150-400) K/uL MPV (7.40-12.00) fL Neut % (Auto) (48.0-80.0) % Lymph % (Auto) (16.0-40.0) % [place] % (Auto) (0.0-15.0) % Eos % (Auto) (0.0-7.0) % Baso % (Auto) (0.0-1.5) % Neut # (Auto) (1.4-5.7) K/uL Lymph # (Auto) (0.6-2.4) K/uL [place] # (Auto) (0.0-0.8) K/uL Eos # (Auto) (0.0-0.7) K/uL Baso # (Auto) (0.0-0.1) K/uL Nucleated RBC % /100WBC Nucleated RBCs # K/uL INR (0.86-1.11) Lactate 1.2 (0.20-2.00) mmol/L Sodium (136-146) mmol/L Potassium (3.5-5.1) mmol/L Chloride (98-110) mmol/L Carbon Dioxide (21-31) mmol/L BUN (6.0-23.0) mg/dL Creatinine (0.6-1.5) mg/dL Est Cr Clr Drug Dosing Estimated GFR (MDRD) ml/min Glucose (60-110) mg/dL Calcium (8.8-10.8) mg/dL Total Bilirubin (0.1-1.5) mg/dL AST (5-40) IU/L ALT (8-54) IU/L Alkaline Phosphatase (40-150) Total Protein (6.0-8.0) g/dL Albumin (3.4-4.8) g/dL Globulin (2.0-3.5) g/dL Albumin/Globulin Ratio (1.3-2.8) Meds: Medications Generic Name Dose Route Start Last Admin Trade Name Freq PRN Reason Stop Dose Admin Ciprofloxacin/Dextrose 400 mg/ 200 mls @ 200 mls/hr 11/23/16 08:15 11/23/16 08:47 Premix IV 200 mls/hr Q12H [place] Administration Discontinued Medications Generic Name Dose Route Start Last Admin Trade Name Yvette PRN Reason Stop Dose Admin Sodium Chloride 1,000 mls @ 999 mls/hr 11/23/16 07:33 11/23/16 07:48 Normal Saline IV 11/23/16 08:33 999 mls/hr .Bolus ONE Administration Sodium Chloride 1,000 mls @ 999 mls/hr 11/23/16 10:18 11/23/16 10:29 Normal Saline IV 11/23/16 11:18 Not Given .Bolus ONE Departure - Departure Time of Disposition: 10:46 Disposition: DC/Tfer to Acute Hospital 02 Condition: Good Clinical Impression: Pleural effusion, right, Renal insufficiency, Acute cholecystitis Sepsis Qualifiers: Sepsis type: sepsis due to unspecified organism Qualified Code(s): A41.9 - Sepsis, unspecified organism - Discharge Information Forms: ED Department Discharge - My Orders Last 24 Hours: My Active Orders 11/23/16 07:32 Blood Culture x2 Reflex Set [OM.PC] Stat Saline Lock Insert [OM.PC] Stat 11/23/16 07:43 CULTURE BLOOD [BC] Stat 11/23/16 08:08 CULTURE BLOOD [BC] Stat 11/23/16 08:15 Ciprofloxacin in D5W [Cipro in D5W 400 MG/200 ML] 400 mg Premix Bag 1 bag IV Q12H 11/23/16 10:17 UA W/MICROSCOPIC [URIN] Stat Saline Lock Insert [OM.PC] Stat - Assessment/Plan Last 24 Hours: My Active Orders 11/23/16 07:32 Blood Culture x2 Reflex Set [OM.PC] Stat Saline Lock Insert [OM.PC] Stat 11/23/16 07:43 CULTURE BLOOD [BC] Stat 11/23/16 08:08 CULTURE BLOOD [BC] Stat 11/23/16 08:15 Ciprofloxacin in D5W [Cipro in D5W 400 MG/200 ML] 400 mg Premix Bag 1 bag IV Q12H 11/23/16 10:17 UA W/MICROSCOPIC [URIN] Stat Saline Lock Insert [OM.PC] Stat
[2016-11-23] MEDS ORDERED: Ciprofloxacin in D5W 400 MG in Premix Bag 1 BAG IV SCH ×2 (08:15)
[2016-11-23 08:22] LABS: CHLORIDE,CL 89 mmol/L (98-110); SODIUM,NA 130 mmol/L (136-146)
[2016-11-23 08:53] VITALS: BP 129/68
--- NOTE | 2016-11-23 08:56 | CR ---
EXAMINATION: Two-view chest (PA and Lateral views). HISTORY: Shortness of breath. FINDINGS: The trachea is midline. The cardiomediastinal silhouette is within normal limits. Mild bibasilar ate lectasis and chronic interstitial prominence. A trace right pleural effusion is not excluded. No pne umothorax. Osseous structures appear unremarkable. IMPRESSION: Trace bibasilar atelectasis and/or infiltrates with possible trace right pleural effusion.
--- NOTE | 2016-11-23 10:05 | US ---
EXAMINATION: Abdominal ultrasound HISTORY: Jaundice COMPARISON: 07/02/2016 TECHNIQUE: Grayscale and color Doppler images obtained of the right upper quadrant. FINDINGS: The visualized pancreas appears normal. The liver is mildly coarsened in echogenicity. Etta er demonstrates a mildly nodular contour. The spleen is mildly enlarged at 15 cm. The gallbladder wa ll thickness measures 1.2 cm. Shadowing gallstones are noted. Common bile duct measures 4 mm. The vi sualized IVC and aorta appear normal. The right kidney measures 12.2 cm and left kidney measures 15. 4 cm is [id number] without evidence of hydronephrosis. Sonographic Reyez sign is reported positiv e. Small right pleural effusion. IMPRESSION: 1. Coarsened hepatic echotexture and nodular contour, correlate with cirrhosis. 2. Mild splenomegaly. 3. Gallbladder wall thickening, gallstones, and positive sonographic Reyez sign, correlate with cho lecystitis.
== END 2016-11-23 11:02 ==
LOC: MW.ED 06:56
DX: A41.9 Sepsis, unspecified organism (principal); K81.0 Acute cholecystitis; N28.9 Disorder of kidney and ureter, unspecified; J90 Pleural effusion, not elsewhere classified; E78.00 Pure hypercholesterolemia, unspecified; I11.0 Hypertensive heart disease with heart failure; I50.9 Heart failure, unspecified; I48.91 Unspecified atrial fibrillation; M19.90 Unspecified osteoarthritis, unspecified site; Z86.73 Personal history of transient ischemic attack (TIA), and cerebral infarction without residual deficits; E11.9 Type 2 diabetes mellitus without complications; E66.9 Obesity, unspecified; Z85.51 Personal history of malignant neoplasm of bladder; Z98.49 Cataract extraction status, unspecified eye; Z98.890 Other specified postprocedural states; Z79.4 Long term (current) use of insulin; Z79.01 Long term (current) use of anticoagulants; Z79.899 Other long term (current) drug therapy; Z88.8 Allergy status to other drugs, medicaments and biological substances; Z91.018 Allergy to other foods
CPT/HCPCS: 36415; 71020; 76700; 80053; 83605; 85025; 85610; 87040; 96361; 96365; 99285; J0744; J7040

== ENCOUNTER 2017-01-25 15:11 | Emergency (ER) | payer MEDICARE, BC ==
--- NOTE | 2017-01-25 15:35 | EDM.PDOC ---
ED HPI GENERAL MEDICAL PROBLEM - General Chief Complaint: Abdominal Pain Stated Complaint: LEG HURTS Time Seen by Provider: 01/25/17 15:19 Source of Information: Reports: Patient History Limitations: Reports: No Limitations - History of Present Illness INITIAL COMMENTS - FREE TEXT/NARRATIVE: History of present illness: []Patient started developing right lower abdominal pain last night at 11 PM and has progressively been worsening. He denies any fevers,, nausea or vomiting. Review of systems: As per history of present illness and below otherwise all systems reviewed and negative. Past medical history: As per history of present illness and as reviewed below otherwise noncontributory. Surgical history: As per history of present illness and as reviewed below otherwise noncontributory. Social history: No reported history of drug or alcohol abuse. Family history: As per history of present illness and as reviewed below otherwise noncontributory. Physical exam: General: Well developed, well nourished in NAD HEENT: Atraumatic, normocephalic, pupils reactive, negative for conjunctival pallor or scleral icterus, mucous membranes moist, throat clear, neck supple, nontender, trachea midline. Lungs: Clear to auscultation, breath sounds equal bilaterally, chest nontender. Heart: S1S2, regular, negative for clicks, rubs, or JVD. Abdomen: Soft, nondistended, nontender. Negative for masses or hepatosplenomegaly. Negative for costovertebral tenderness. Pelvis: Stable nontender. Genitourinary: Deferred. Rectal: Deferred. Extremities: Atraumatic, negative for cords or calf pain. Neurovascular unremarkable. Neuro: Awake, alert, oriented. Cranial nerves II through XII unremarkable. Cerebellum unremarkable. Motor and sensory unremarkable throughout. Exam nonfocal. Diagnostics: []CT abdomen without contrast done due to his elevated BUN/creatinine shows a 0.6 cm proximal high ureteral stone pending x-rays normal areas. No friction stranding Therapeutics: []IV hydration and morphine for pain Impression: []Infected right ureteral kidney stone Plan: []Bactrim, hydrocodone for pain follow-up with Dr. Nolan increase fluids Definitive disposition and diagnosis as appropriate pending reevaluation and review of above. Right Lower Abdominal Pain Score (Numeric/FACES): 8 - Related Data Allergies Allergy/AdvReac Type Severity Reaction Status Date / Time lisinopril Allergy Cough Verified 01/25/17 15:23 green hendrix peppers Allergy Vomiting Uncoded 11/23/16 07:23 Home Meds: Home Meds Allopurinol [Zyloprim] 100 mg PO BID 07/01/16 [History] Calcitriol [Rocaltrol] 0.25 mcg PO DAILY 07/01/16 [History] Ferrous Sulfate [Iron] 325 mg PO BID 07/01/16 [History] [place]-3/DHA/Epa/Fish Oil [Fish Oil 1,000 mg Softgel] 1,000 mg PO DAILY 07/01/16 [History] Omeprazole Magnesium [Prilosec Otc] 20 mg PO ACBREAKFAST 07/01/16 [History] Potassium Chloride 10 tab PO DAILY 07/01/16 [History] Simvastatin [Zocor] 20 mg PO BEDTIME 07/01/16 [History] Warfarin [Coumadin] 4 mg PO DAILY 07/01/16 [History] Diltiazem [Cardizem CD] 120 mg PO DAILY cap.cd 07/08/16 [Rx] Sodium Bicarbonate 650 mg PO TID #30 tablet 07/08/16 [Rx] Bumetanide [Bumex] 2 mg PO QID 11/23/16 [History] Carvedilol 6.25 mg PO BID 11/23/16 [History] Chlorthalidone 25 mg PO TUFR@0800 11/23/16 [History] Cyanocobalamin (Vitamin B12) [Vitamin B12] 1,000 mcg PO DAILY 11/23/16 [History] Fluticasone/Salmeterol [Advair Diskus 250-50] 1 puff INH BID PRN 11/23/16 [ History] Folic Acid 1 mg PO DAILY 11/23/16 [History] Insulin Aspart [NovoLOG] 10 units SUBCUT TIDAC 11/23/16 [History] Insulin Glarg,Human.Rec.Analog [LantUS Solostar] 24 units SUBCUT DAILY 11/23/16 [History] Magnesium Oxide 420 mg PO BID 11/23/16 [History] Hydrocodone/Acetaminophen [Hydrocodon-Acetaminophen 5-325] 1 each PO Q6HR PRN # 20 tablet 01/25/17 [Rx] Sulfamethoxazole/Trimethoprim [Bactrim Ds Tablet] 1 each PO BID #20 tablet 01/25 [Rx] Past Medical History - Past Health History Medical/Surgical History: Denies Medical/Surgical History HEENT History: Reports: Other (See Below) Other HEENT History: corrective glasses Cardiovascular History: Reports: Afib, Heart Failure, High Cholesterol, Hypertension Respiratory History: Reports: None Gastrointestinal History: Reports: Hiatal Hernia Genitourinary History: Reports: Urostomy Musculoskeletal History: Reports: Arthritis, Gout Neurological History: Reports: CVA Psychiatric History: Reports: None Endocrine/Metabolic History: Reports: Diabetes, Type II, Obesity/BMI 30+ Oncologic (Cancer) History: Reports: Bladder Dermatologic History: Reports: Cellulitis - Infectious Disease History Infectious Disease History: Reports: Chicken Pox, Mumps - Past Surgical History HEENT Surgical History: Reports: Cataract Surgery Male Surgical History: Reports: Other (See Below) Other Male Surgeries/Procedures: urostomy Musculoskeletal Surgical History: Reports: None Social & Family History - Family History Family Medical History: Noncontributory HEENT: Reports: Cataract Cardiac: Reports: High Cholesterol, Hypertension Musculoskeletal: Reports: Arthritis Psychiatric: Reports: Depression Oncologic: Reports: Prostate - Tobacco Use Smoking Status *Q: Never Smoker Years of Tobacco use: 15 Packs/Tins Daily: 1.5 Used Tobacco, but Quit: No Month Tobacco Last Used: 1975 Second Hand Smoke Exposure: No - Caffeine Use Caffeine Use: Reports: Coffee Caffeine Use Comment: 1 cup/day - Alcohol Use Days Per Week of Alcohol Use: 7 Number of Drinks Per Day: 2 Total Drinks Per Week: 14 - Recreational Drug Use Recreational Drug Use: No Drug Use in Last 12 Months: No ED ROS GENERAL - Review of Systems Review Of Systems: See Below (See history of present illness) ED EXAM, GI/ABD - Physical Exam Exam: See Below (See history of present illness) Course - Vital Signs Last Recorded V/S: Last Vital Signs Temp 36.2 C 01/25/17 15:29 Pulse 126 H 01/25/17 16:37 Resp 20 01/25/17 16:37 BP 150/89 H 01/25/17 16:37 Pulse Ox 92 L 01/25/17 15:29 - Orders/Labs/Meds Orders: Active Orders 24 hr Category Date Time Status Abdomen Pelvis wo Cont [CT] Stat Exams 01/25/17 17:01 Taken CULTURE URINE [RM] Stat Lab 01/25/17 16:40 Received Morphine Med 01/25/17 18:28 Once 2 mg IVPUSH ONETIME ONE Sodium Chloride 0.9% [Saline Flush] Med 01/25/17 15:36 Active 10 ml FLUSH ASDIRECTED PRN Sodium Chloride 0.9% [Saline Flush] Med 01/25/17 15:36 Active 2.5 ml FLUSH ASDIRECTED PRN Saline Lock Insert [OM.PC] Stat Oth 01/25/17 15:35 Ordered Medication Orders Morphine Sulfate (Morphine) 2 mg IVPUSH ONETIME ONE Stop: 01/25/17 18:29 Sodium Chloride (Saline Flush) 10 ml FLUSH ASDIRECTED PRN PRN Reason: Keep Vein Open Last Admin: 01/25/17 16:00 Dose: 10 ml Sodium Chloride (Saline Flush) 2.5 ml FLUSH ASDIRECTED PRN PRN Reason: Keep Vein Open Last Admin: 01/25/17 16:01 Dose: 2.5 ml Labs: Laboratory Tests 01/25/17 01/25/17 Range/Units 16:00 16:00 WBC 20.96 H (4.0-11.0) K/uL RBC 4.47 L (4.50-5.90) M/uL Hgb 14.6 (13.0-17.0) g/dL Hct 41.9 (38.0-50.0) % MCV 93.7 (80.0-98.0) fL MCH 32.7 H (27.0-32.0) pg MCHC 34.8 (31.0-37.0) g/dL RDW Std Deviation 58.4 (28.0-62.0) fl RDW Coeff of William 17 H (11.0-15.0) % Plt Count 124 L (150-400) K/uL MPV 10.20 (7.40-12.00) fL Neut % (Auto) 94.7 H (48.0-80.0) % Lymph % (Auto) 3.1 L (16.0-40.0) % [place] % (Auto) 2.1 (0.0-15.0) % Eos % (Auto) 0.0 (0.0-7.0) % Baso % (Auto) 0.1 (0.0-1.5) % Neut # (Auto) 19.8 H (1.4-5.7) K/uL Lymph # (Auto) 0.7 (0.6-2.4) K/uL [place] # (Auto) 0.5 (0.0-0.8) K/uL Eos # (Auto) 0.0 (0.0-0.7) K/uL Baso # (Auto) 0.0 (0.0-0.1) K/uL Nucleated RBC % 0.0 /100WBC Nucleated RBCs # 0 K/uL Sodium 136 (136-146) mmol/L Potassium 4.2 (3.5-5.1) mmol/L Chloride 91 L (98-110) mmol/L Carbon Dioxide 26 (21-31) mmol/L BUN 46 H (6.0-23.0) mg/dL Creatinine 3.0 H (0.6-1.5) mg/dL Est Cr Clr Drug Dosing 22.98 mL/min Estimated GFR (MDRD) 20.7 ml/min Glucose 213 H (60-110) mg/dL Calcium 10.2 (8.8-10.8) mg/dL Total Bilirubin 1.7 H (0.1-1.5) mg/dL AST 36 (5-40) IU/L ALT 25 (8-54) IU/L Alkaline Phosphatase 272 H (40-150) Total Protein 7.7 (6.0-8.0) g/dL Albumin 3.9 (3.4-4.8) g/dL Globulin 3.8 H (2.0-3.5) g/dL Albumin/Globulin Ratio 1.0 L (1.3-2.8) Lipase 21 (7-80) U/L Meds: Medications Generic Name Dose Route Start Last Admin Trade Name Freq PRN Reason Stop Dose Admin Morphine Sulfate 2 mg 01/25/17 18:28 Morphine IVPUSH 01/25/17 18:29 ONETIME ONE Sodium Chloride 10 ml 01/25/17 15:36 01/25/17 16:00 Saline Flush FLUSH 10 ml ASDIRECTED PRN Administration Keep Vein Open Sodium Chloride 2.5 ml 01/25/17 15:36 01/25/17 16:01 Saline Flush FLUSH 2.5 ml ASDIRECTED PRN Administration Keep Vein Open Discontinued Medications Generic Name Dose Route Start Last Admin Trade Name Freq PRN Reason Stop Dose Admin Sodium Chloride 1,000 mls @ 999 mls/hr 01/25/17 15:36 01/25/17 16:05 Normal Saline IV 01/25/17 16:36 999 mls/hr .Bolus ONE Administration Morphine Sulfate 2 mg 01/25/17 15:36 01/25/17 16:12 Morphine IVPUSH 01/25/17 15:37 2 mg ONETIME ONE Administration Ondansetron HCl 4 mg 01/25/17 15:37 01/25/17 16:09 Zofran IVPUSH 01/25/17 15:38 4 mg ONETIME ONE Administration Departure - Departure Time of Disposition: 18:30 Disposition: Home, Self-Care 01 Condition: Good Clinical Impression: Ureteral stone - Discharge Information Referrals: PCP,None [Primary Care Provider] - Forms: ED Department Discharge - My Orders Last 24 Hours: My Active Orders 01/25/17 15:35 Saline Lock Insert [OM.PC] Stat 01/25/17 15:36 Sodium Chloride 0.9% [Saline Flush] 10 ml FLUSH ASDIRECTED PRN Sodium Chloride 0.9% [Saline Flush] 2.5 ml FLUSH ASDIRECTED PRN 01/25/17 16:40 CULTURE URINE [RM] Stat 01/25/17 17:01 Abdomen Pelvis wo Cont [CT] Stat 01/25/17 18:28 Morphine 2 mg IVPUSH ONETIME ONE - Assessment/Plan Last 24 Hours: My Active Orders 01/25/17 15:35 Saline Lock Insert [OM.PC] Stat 01/25/17 15:36 Sodium Chloride 0.9% [Saline Flush] 10 ml FLUSH ASDIRECTED PRN Sodium Chloride 0.9% [Saline Flush] 2.5 ml FLUSH ASDIRECTED PRN 01/25/17 16:40 CULTURE URINE [RM] Stat 01/25/17 17:01 Abdomen Pelvis wo Cont [CT] Stat 01/25/17 18:28 Morphine 2 mg IVPUSH ONETIME ONE
[2017-01-25] MEDS ORDERED: Sodium Chloride 0.9% 1,000 ML IV ONE (15:36)
[2017-01-25] MEDS ORDERED: Sodium Chloride 0.9% 2.5 ML Syringe FLUSH PRN (15:36)
[2017-01-25] MEDS ORDERED: Morphine 2 MG/ML Syringe IVPUSH ONE ×2 (15:36→18:28)
[2017-01-25] MEDS ORDERED: Sodium Chloride 0.9% 10 ML Syringe FLUSH PRN (15:36)
[2017-01-25] MEDS ORDERED: Ondansetron 4 MG/2 ML SDV IVPUSH ONE (15:37)
[2017-01-25] MEDS ORDERED: Sulfamethoxazole/Trimethoprim 800-160 MG Tab PO ONE (18:34)
[2017-01-25 19:12] VITALS: BP 124/64
--- NOTE | 2017-01-26 11:58 | CT ---
EXAM DATE: 01/25/17 PATIENT'S AGE: 71 Patient: SCHUYLER ESTRADA Facility: [place], [place] Site . Site : 1945 Study: CT Abdomen/Pelvis WO CONT [id number]/21/2017 5:41:18 PM Ordering Physician: Ran Addison Final Report: INDICATION: Right lower quadrant pain since 11 p.m. last night, nausea TECHNIQUE: CT abdomen and pelvis acquired without IV contrast. COMPARISON: May 27, 2012 FINDINGS: Lower chest: Coronary artery calcifications. Small right pleural effusion. Liver: Unremarkable. Spleen: Unremarkable. Pancreas: Unremarkable. Gallbladder and bile ducts: Cholelithiasis. Adrenal glands: Unremarkable. Kidneys: Mild right hydronephrosis secondary to a 0.6 cm proximal right ureteral stone. There is also a 0.6 cm stone within the right mid kidney. Mild right perinephric stranding. GI tract: Appendix is normal. Vascular structures: Unremarkable. Lymph nodes: Unremarkable. Miscellaneous: Fat containing umbilical hernia. No free air or significant free fluid. Pelvic Organs: Status post prostatectomy. There appears to be a right lower quadrant urostomy. Bones: Unremarkable for age. IMPRESSION: Mild right hydronephrosis secondary to a 0.6 cm stone within the proximal right ureter. There is also a 0.6 cm stone in the right mid kidney. There appears to be a right lower quadrant urostomy. Small right pleural effusion. Cholelithiasis. Status post prostatectomy. Coronary artery disease. Please note that all CT scans at this facility use dose modulation, iterative reconstruction, and/or weight-based dosing when appropriate to reduce radiation dose to as low as reasonably achievable. Dictated by Michelle aNvarro MD @ Jan 25 2017 6:06PM (Electronic Signature) Report Signed by Proxy. [facility] MEDICAL CENTERBertha
== END 2017-01-25 19:08 | disposition home or self-care (01) ==
LOC: MW.ED 15:11
DX: N13.6 Pyonephrosis (principal); I48.91 Unspecified atrial fibrillation; E78.00 Pure hypercholesterolemia, unspecified; I11.0 Hypertensive heart disease with heart failure; I50.9 Heart failure, unspecified; M19.90 Unspecified osteoarthritis, unspecified site; Z86.73 Personal history of transient ischemic attack (TIA), and cerebral infarction without residual deficits; E11.9 Type 2 diabetes mellitus without complications; E66.9 Obesity, unspecified; Z98.49 Cataract extraction status, unspecified eye; Z98.890 Other specified postprocedural states; Z88.8 Allergy status to other drugs, medicaments and biological substances; Z91.018 Allergy to other foods; Z79.4 Long term (current) use of insulin; Z79.01 Long term (current) use of anticoagulants
CPT/HCPCS: 36415; 74176; 80053; 83690; 85025; 87086; 87186; 96361; 96374; 96375; 99284; A9270; J2270; J2405; J7040; 87077; 87088; 99283

== ENCOUNTER 2018-06-16 13:42 | Emergency (ER) | payer OTHER, BC, MEDICARE ==
--- NOTE | 2018-06-16 14:51 | CR ---
HISTORY: Bleeding from the great toe. TECHNIQUE: Three views of the great toe of the left foot. COMPARISON: No prior. FINDINGS: Bandage material is present. There is deformity of the distal phalanx of the great toe which may reflect sequelae of prior fracture. This is not definitively an acute fracture. Correlation with time from trauma is suggested. The proximal phalanx and metatarsal bone of the great toe are intact. The joint spaces appear maintained. There are vascular calcifications. IMPRESSION: Deformity of the distal phalanx of the great toe may reflect sequelae of prior fracture. This is not definitively acute. Correlation with time from prior trauma is suggested. Dictated by Denis See MD @ 06/16/2018 2:50:09 PM Dictated by: Denis See MD @ 06/16/2018 14:50:11 (Electronically Signed)
[2018-06-16] MEDS ORDERED: ceFAZolin 1 GM Vial IM ONE (14:59)
--- NOTE | 2018-06-16 15:06 | EDM.PDOC ---
ED HPI GENERAL MEDICAL PROBLEM - General Chief Complaint: General Stated Complaint: BLEEDING TOE Time Seen by Provider: 06/16/18 13:47 Source of Information: Reports: Patient History Limitations: Reports: No Limitations - History of Present Illness INITIAL COMMENTS - FREE TEXT/NARRATIVE: History of present illness: []Patient is been a diabetic for several years and has no sensation in his feet. He stubbed his toe on a latex mat on the side of his bed. Patient has atrial fibrillation and is on Coumadin and could not get the wound to stop bleeding. Review of systems: As per history of present illness and below otherwise all systems reviewed and negative. Past medical history: As per history of present illness and as reviewed below otherwise noncontributory. Surgical history: As per history of present illness and as reviewed below otherwise noncontributory. Social history: No reported history of drug or alcohol abuse. Family history: As per history of present illness and as reviewed below otherwise noncontributory. Physical exam: General: Well developed, well nourished in NAD HEENT: Atraumatic, normocephalic, pupils reactive, negative for conjunctival pallor or scleral icterus, mucous membranes moist, throat clear, neck supple, nontender, trachea midline. Lungs: Clear to auscultation, breath sounds equal bilaterally, chest nontender. Heart: S1S2, regular, negative for clicks, rubs, or JVD. Abdomen: NABS, Soft, nondistended, nontender. Negative for masses or hepatosplenomegaly. Negative for costovertebral tenderness. Pelvis: Stable nontender. Genitourinary: Deferred. Rectal: Deferred. Extremities: Left big toe with a laceration at base of cuticle extending laterally both sides with continuous oozing there is no arterial bleeding patient is asensate in the toe, negative for cords or calf pain. Neurovascular unremarkable. Neuro: Awake, alert, oriented. Cranial nerves II through XII unremarkable. Cerebellum unremarkable. Motor and sensory unremarkable throughout. Exam nonfocal. Skin:warm and dry Diagnostics: X-ray left big toe, INR, CBC Therapeutics: Wound sutured, Surgicel used and a pressure dressing Ancef IM ED Course: Unremarkable Impression: Fracture/laceration Left great toe Prescriptions: Keflex Plan: Follow-up with podiatry next week Definitive disposition and diagnosis as appropriate pending reevaluation and review of above. - Related Data Allergies Allergy/AdvReac Type Severity Reaction Status Date / Time lisinopril Allergy Cough Verified 06/16/18 13:58 green hendrix peppers Allergy Vomiting Uncoded 04/20/17 19:09 Home Meds: Home Meds Allopurinol [Zyloprim] 100 mg PO BID 07/01/16 [History] Calcitriol [Rocaltrol] 0.25 mcg PO DAILY 07/01/16 [History] Ferrous Sulfate [Iron] 325 mg PO BID 07/01/16 [History] [place]-3/DHA/Epa/Fish Oil [Fish Oil 1,000 mg Softgel] 1,000 mg PO BID 07/01/16 [ History] Omeprazole Magnesium [Prilosec Otc] 20 mg PO ACBREAKFAST 07/01/16 [History] Potassium Chloride 20 tab PO ACDINNER 07/01/16 [History] Simvastatin [Zocor] 20 mg PO BEDTIME 07/01/16 [History] Warfarin [Coumadin] 2 - 4 mg PO DAILY 07/01/16 [History] Bumetanide [Bumex] 2 mg PO BID 11/23/16 [History] Carvedilol 6.25 mg PO BID 11/23/16 [History] Chlorthalidone 25 mg PO TUFR@0800 11/23/16 [History] Cyanocobalamin (Vitamin B12) [Vitamin B12] 1,000 mcg PO DAILY 11/23/16 [History] Fluticasone/Salmeterol [Advair Diskus 250-50] 1 puff INH BID PRN 11/23/16 [ History] Folic Acid 1 mg PO DAILY 11/23/16 [History] Insulin Aspart [NovoLOG] 12 units SUBCUT ASDIRECTED 11/23/16 [History] Insulin Glarg,Human.Rec.Analog [LantUS Solostar] 28 units SUBCUT BEDTIME [History] Magnesium Oxide 420 mg PO BID 11/23/16 [History] Diltiazem [Cardizem CD] 120 mg PO BEDTIME 04/20/17 [History] Insulin Aspart [NovoLOG] See Protocol SUBCUT TIDAC 04/20/17 [History] Sodium Bicarbonate 650 mg PO BID 04/20/17 [History] Cholecalciferol (Vitamin D3) [Vitamin D] 5,000 unit PO DAILY 06/16/18 [History] cephALEXin [Keflex] 500 mg PO Q8H #21 cap 06/16/18 [Rx] Past Medical History - Past Health History Medical/Surgical History: Denies Medical/Surgical History HEENT History: Reports: Other (See Below) Other HEENT History: corrective glasses Cardiovascular History: Reports: Afib, Heart Failure, High Cholesterol, Hypertension Respiratory History: Reports: None Gastrointestinal History: Reports: Hiatal Hernia Genitourinary History: Reports: Urostomy Musculoskeletal History: Reports: Arthritis, Gout Neurological History: Reports: CVA Psychiatric History: Reports: None Endocrine/Metabolic History: Reports: Diabetes, Type II, Obesity/BMI 30+ Hematologic History: Reports: Anticoagulation Therapy Oncologic (Cancer) History: Reports: Bladder Dermatologic History: Reports: Cellulitis - Infectious Disease History Infectious Disease History: Reports: Chicken Pox, Measles, Mumps - Past Surgical History HEENT Surgical History: Reports: Adenoidectomy, Cataract Surgery, Tonsillectomy Male Surgical History: Reports: Other (See Below) Other Male Surgeries/Procedures: urostomy Musculoskeletal Surgical History: Reports: None Oncologic Surgical History: Reports: None Social & Family History - Family History Family Medical History: Noncontributory HEENT: Reports: Cataract Cardiac: Reports: High Cholesterol, Hypertension Musculoskeletal: Reports: Arthritis Psychiatric: Reports: Depression Oncologic: Reports: Prostate - Tobacco Use Smoking Status *Q: Never Smoker - Caffeine Use Caffeine Use: Reports: Coffee Caffeine Use Comment: 1- cup per day - Alcohol Use Days Per Week of Alcohol Use: 7 Number of Drinks Per Day: 2 Total Drinks Per Week: 14 - Recreational Drug Use Recreational Drug Use: No ED ROS GENERAL - Review of Systems Review Of Systems: ROS reveals no pertinent complaints other than HPI. ED EXAM, GENERAL - Physical Exam Exam: See Below (See history of present illness) ED GENERAL MEDICAL PROCEDURES - Laceration/Wound Repair toe Lac/wound length in cm: 4 Appearance: Superficial (6) Distal NVT: Neuro & Vascular Intact Anesthetic Type: Other (none) Skin Prep: Saline Suture Size: 4-0 Drain Placement: No Sterile Dressing Applied: Nurse Tetanus Status Addressed: Yes Complications: No Course - Vital Signs Last Recorded V/S: Last Vital Signs Temp 97.0 F 06/16/18 13:56 Pulse 89 06/16/18 13:56 Resp 18 06/16/18 13:56 BP 147/76 H 06/16/18 13:56 Pulse Ox 94 L 06/16/18 13:56 - Orders/Labs/Meds Orders: Active Orders 24 hr Category Date Time Status Sodium Chloride 0.9% [Normal Saline] Med 06/16/18 15:15 Active 10 ml IV STAT Medication Orders Sodium Chloride (Normal Saline) 10 ml IV STAT [place] Labs: Laboratory Tests 06/16/18 06/16/18 Range/Units 14:05 14:05 WBC 10.01 (4.0-11.0) K/uL RBC 3.89 L (4.50-5.90) M/uL Hgb 12.7 L (13.0-17.0) g/dL Hct 36.9 L (38.0-50.0) % MCV 94.9 (80.0-98.0) fL MCH 32.6 H (27.0-32.0) pg MCHC 34.4 (31.0-37.0) g/dL RDW Std Deviation 54.3 (28.0-62.0) fl RDW Coeff of William 16 H (11.0-15.0) % Plt Count 133 L (150-400) K/uL MPV 10.50 (7.40-12.00) fL Neut % (Auto) 79.1 (48.0-80.0) % Lymph % (Auto) 11.1 L (16.0-40.0) % [place] % (Auto) 7.2 (0.0-15.0) % Eos % (Auto) 2.2 (0.0-7.0) % Baso % (Auto) 0.4 (0.0-1.5) % Neut # (Auto) 7.9 H (1.4-5.7) K/uL Lymph # (Auto) 1.1 (0.6-2.4) K/uL [place] # (Auto) 0.7 (0.0-0.8) K/uL Eos # (Auto) 0.2 (0.0-0.7) K/uL Baso # (Auto) 0.0 (0.0-0.1) K/uL Nucleated RBC % 0.0 /100WBC Nucleated RBCs # 0 K/uL INR 2.16 Meds: Medications Generic Name Dose Route Start Last Admin Trade Name Freq PRN Reason Stop Dose Admin Sodium Chloride 10 ml 06/16/18 15:15 Normal Saline IV STAT [place] Discontinued Medications Generic Name Dose Route Start Last Admin Trade Name Freq PRN Reason Stop Dose Admin Cefazolin Sodium 1 gm 06/16/18 14:59 Ancef IM 06/16/18 15:00 ONETIME ONE Departure - Departure Time of Disposition: 15:08 Disposition: Home, Self-Care 01 Condition: Good Clinical Impression: Open fracture of great toe of left foot Qualifiers: Encounter type: initial encounter Phalanx: distal Fracture alignment: nondisplaced Qualified Code(s): S92.425B - Nondisplaced fracture of distal phalanx of left great toe, initial encounter for open fracture - Discharge Information *PRESCRIPTION DRUG MONITORING PROGRAM REVIEWED*: No *COPY OF PRESCRIPTION DRUG MONITORING REPORT IN PATIENT [place]: No Prescriptions: cephALEXin [Keflex] 500 mg PO Q8H #21 cap Referrals: PCP,Unknown [Primary Care Provider] - Melchor Solorzano DPM [Physician] - Forms: ED Department Discharge Additional Instructions: The following information is given to patients seen in the emergency department who are being discharged to home. This information is to outline your options for follow-up care. We provide all patients seen in our emergency department with a follow-up referral. The need for follow-up, as well as the timing and circumstances, are variable depending upon the specifics of your emergency department visit. If you don't have a primary care physician on staff, we will provide you with a referral. We always advise you to contact your personal physician following an emergency department visit to inform them of the circumstance of the visit and for follow-up with them and/or the need for any referrals to a consulting specialist. The emergency department will also refer you to a specialist when appropriate. This referral assures that you have the opportunity for follow-up care with a specialist. All of these measure are taken in an effort to provide you with optimal care, which includes your follow-up. Under all circumstances we always encourage you to contact your private physician who remains a resource for coordinating your care. When calling for follow-up care, please make the office aware that this follow-up is from your recent emergency room visit. If for any reason you are refused follow-up, please contact the [facility] Emergency Department at and asked to speak to the emergency department charge nurse. Take meds as directed follow-up with podiatry next week. My Podiatry [facility] Dr Santana, DPM Podiatry [address] [place] [id number] - My Orders Last 24 Hours: My Active Orders 06/16/18 15:15 Sodium Chloride 0.9% [Normal Saline] 10 ml IV STAT - Assessment/Plan Last 24 Hours: My Active Orders 06/16/18 15:15 Sodium Chloride 0.9% [Normal Saline] 10 ml IV STAT
[2018-06-16] MEDS ORDERED: Sodium Chloride 0.9% 10 ML SDV IV SCH (15:15)
[2018-06-16 15:46] VITALS: BP 136/74
== END 2018-06-16 15:46 | disposition home or self-care (01) ==
LOC: MW.ED 13:42
DX: S92.425B Nondisplaced fracture of distal phalanx of left great toe, initial encounter for open fracture (principal); I11.0 Hypertensive heart disease with heart failure; I50.9 Heart failure, unspecified; E11.9 Type 2 diabetes mellitus without complications; E66.9 Obesity, unspecified; W22.8XXA Striking against or struck by other objects, initial encounter
CPT/HCPCS: 36415; 73660; 85025; 85610; 96372; 99283; J0690

== ENCOUNTER 2018-07-27 10:53 | Emergency (ER) | payer OTHER, MEDICARE, BC ==
--- NOTE | 2018-07-27 11:34 | EDM.PDOC ---
ED HPI GENERAL MEDICAL PROBLEM - General Chief Complaint: Lower Extremity Injury/Pain Stated Complaint: LT BIG TOE INJURY Time Seen by Provider: 07/27/18 11:29 Source of Information: Reports: Patient History Limitations: Reports: No Limitations - History of Present Illness INITIAL COMMENTS - FREE TEXT/NARRATIVE: HISTORY AND PHYSICAL: History of present illness: Patient is a 72-year-old male here with concern of left great toe drainage. Past medical history significant for type 2 diabetes. He states that about 6 weeks ago he had stubbed his toe in gym the nail back and was seen in the ED. He reports he is on warfarin and it would not stop bleeding so sutures were put in place then. X-ray did show a fracture but was uncertain if it was current or old fracture. He states over the last couple of days he has noticed some swelling in the toe and some purulent drainage. He denies fevers, chills, chest pain, shortness, nausea, vomiting, urinary or bowel symptoms. Review of systems: As per history of present illness and below otherwise all systems reviewed and negative. Past medical history: As per history of present illness and as reviewed below otherwise noncontributory. Surgical history: As per history of present illness and as reviewed below otherwise noncontributory. Social history: No reported history of drug or alcohol abuse. Family history: As per history of present illness and as reviewed below otherwise noncontributory. Physical exam: General: Patient sitting comfortably in no acute distress and nontoxic appearing HEENT: Atraumatic, normocephalic, pupils reactive, negative for conjunctival pallor or scleral icterus, mucous membranes moist, throat clear, neck supple, nontender, trachea midline. No meningeal signs. Lungs: Clear to auscultation, breath sounds equal bilaterally, chest nontender. Heart: S1S2, regular, negative for clicks, rubs, or overt murmur. Abdomen: Soft, nondistended, nontender. Urostomy bag in place. Negative for masses or hepatosplenomegaly. Negative for costovertebral tenderness. No rigidity, rebound, guarding. Pelvis: Stable nontender. Genitourinary: Deferred. Rectal: Deferred. Extremities: The left great toe is swollen with lifting of the toenail noted and surrounding erythema and purulent drainage. negative for cords or calf pain. Neurovascular unremarkable. Neuro: Awake, alert, oriented. Cranial nerves II through XII unremarkable. Cerebellum unremarkable. Motor and sensory unremarkable throughout. Exam nonfocal. Notes: Diagnostics: CBC, CMP, PT/INR, blood culture x 2, x-ray left great toe Therapeutics: 1g Vancomycin IV 3.375mg Zosyn IV Prescriptions: Impression: Osteomyelitis left great toe, cellulitis left great toe Chronic renal insufficiency, type 2 diabetes, chronic anticoagulation, CHF Plan: Discussed with Dr. Ventura, hospitalist at [facility], patient will be transferred via ground ambulance Definitive disposition and diagnosis as appropriate pending reevaluation and review of above. Left Toe-Long Pain Score (Numeric/FACES): 8 - Related Data Allergies Allergy/AdvReac Type Severity Reaction Status Date / Time lisinopril Allergy Cough Verified 06/16/18 13:58 green hendrix peppers Allergy Vomiting Uncoded 04/20/17 19:09 Home Meds: Home Meds Allopurinol [Zyloprim] 100 mg PO BID 07/01/16 [History] Calcitriol [Rocaltrol] 0.25 mcg PO DAILY 07/01/16 [History] Ferrous Sulfate [Iron] 325 mg PO BID 07/01/16 [History] Wolcott-3/DHA/Epa/Fish Oil [Fish Oil 1,000 mg Softgel] 1,000 mg PO BID 07/01/16 [ History] Omeprazole Magnesium [Prilosec Otc] 20 mg PO ACBREAKFAST 07/01/16 [History] Potassium Chloride 20 mg PO ACDINNER 07/01/16 [History] Simvastatin [Zocor] 20 mg PO BEDTIME 07/01/16 [History] Warfarin [Coumadin] 4 mg PO SUSA@1400 07/01/16 [History] Carvedilol 12.5 mg PO BID 11/23/16 [History] Chlorthalidone 25 mg PO TUFR@0800 11/23/16 [History] Cyanocobalamin (Vitamin B12) [Vitamin B12] 1,000 mcg PO DAILY 11/23/16 [History] Folic Acid 1 mg PO DAILY 11/23/16 [History] Insulin Aspart [NovoLOG] 12 units SUBCUT TIDAC 11/23/16 [History] Insulin Glarg,Human.Rec.Analog [LantUS Solostar] 34 units SUBCUT BEDTIME [History] Magnesium Oxide 420 mg PO BID 11/23/16 [History] Diltiazem [Cardizem CD] 120 mg PO BEDTIME 04/20/17 [History] Insulin Aspart [NovoLOG] See Protocol SUBCUT TIDAC 04/20/17 [History] Sodium Bicarbonate 650 mg PO BID 04/20/17 [History] Bumetanide 4 mg PO BID 07/27/18 [History] Cholecalciferol (Vitamin D3) [Vitamin D3] 1,000 unit PO DAILY 07/27/18 [History] Fluticasone Propionate 1 spray NS BID PRN 07/27/18 [History] Latanoprost 1 drop OP BEDTIME 07/27/18 [History] Triamcinolone Acetonide [Triamcinolone Acetonide 0.1% Crm] 1 appful TOP BID PRN 07/27/18 [History] Warfarin [Coumadin] 3 mg PO MOTUWETHFR@1400 07/27/18 [History] Past Medical History - Past Health History Medical/Surgical History: Denies Medical/Surgical History HEENT History: Reports: Other (See Below) Other HEENT History: corrective glasses Cardiovascular History: Reports: Afib, Heart Failure, High Cholesterol, Hypertension Respiratory History: Reports: None Gastrointestinal History: Reports: Hiatal Hernia Genitourinary History: Reports: Urostomy Musculoskeletal History: Reports: Arthritis, Gout Neurological History: Reports: CVA Psychiatric History: Reports: None Endocrine/Metabolic History: Reports: Diabetes, Type II, Obesity/BMI 30+ Hematologic History: Reports: Anticoagulation Therapy Oncologic (Cancer) History: Reports: Bladder Dermatologic History: Reports: Cellulitis - Infectious Disease History Infectious Disease History: Reports: Chicken Pox, Measles, Mumps - Past Surgical History HEENT Surgical History: Reports: Adenoidectomy, Cataract Surgery, Tonsillectomy Male Surgical History: Reports: Other (See Below) Other Male Surgeries/Procedures: urostomy Musculoskeletal Surgical History: Reports: None Oncologic Surgical History: Reports: None Social & Family History - Family History Family Medical History: Noncontributory HEENT: Reports: Cataract Cardiac: Reports: High Cholesterol, Hypertension Musculoskeletal: Reports: Arthritis Psychiatric: Reports: Depression Oncologic: Reports: Prostate - Caffeine Use Caffeine Use: Reports: Coffee Caffeine Use Comment: 1- cup per day Review of Systems - Review of Systems Review Of Systems: ROS reveals no pertinent complaints other than HPI. ED EXAM, GENERAL - Physical Exam Exam: See Below (see dictation) Course - Vital Signs Last Recorded V/S: Last Vital Signs Temp 97.2 F 07/27/18 11:45 Pulse 94 07/27/18 11:45 Resp 20 07/27/18 11:45 BP 133/73 07/27/18 11:45 Pulse Ox 94 L 07/27/18 11:45 - Orders/Labs/Meds Orders: Active Orders 24 hr Category Date Time Status Piperacillin/Tazobactam [Piperacil-Tazobact] 3.375 gm Med 07/27/18 12:36 Ordered Sodium Chloride 0.9% [Normal Saline] 50 ml IV ONETIME Vancomycin [Vancocin] 1 gm Med 07/27/18 12:36 Ordered Sodium Chloride 0.9% [Normal Saline] 250 ml IV ONETIME Labs: Laboratory Tests 07/27/18 07/27/18 07/27/18 Range/Units 11:44 11:44 11:44 WBC 10.39 (4.0-11.0) K/uL RBC 3.03 L (4.50-5.90) M/uL Hgb 10.1 L (13.0-17.0) g/dL Hct 29.4 L (38.0-50.0) % MCV 97.0 (80.0-98.0) fL MCH 33.3 H (27.0-32.0) pg MCHC 34.4 (31.0-37.0) g/dL RDW Std Deviation 58.1 (28.0-62.0) fl RDW Coeff of William 16 H (11.0-15.0) % Plt Count 111 L (150-400) K/uL MPV 10.10 (7.40-12.00) fL Neut % (Auto) 82.6 H (48.0-80.0) % Lymph % (Auto) 5.4 L (16.0-40.0) % Wilson % (Auto) 11.0 (0.0-15.0) % Eos % (Auto) 0.7 (0.0-7.0) % Baso % (Auto) 0.3 (0.0-1.5) % Neut # (Auto) 8.6 H (1.4-5.7) K/uL Lymph # (Auto) 0.6 (0.6-2.4) K/uL Wilson # (Auto) 1.1 H (0.0-0.8) K/uL Eos # (Auto) 0.1 (0.0-0.7) K/uL Baso # (Auto) 0.0 (0.0-0.1) K/uL Nucleated RBC % 0.0 /100WBC Nucleated RBCs # 0 K/uL INR 2.01 Sodium 136 (136-148) mmol/L Potassium 3.5 (3.5-5.1) mmol/L Chloride 97 L (98-107) mmol/L Carbon Dioxide 30.5 (21.0-32.0) mmol/L BUN 58 H (7.0-18.0) mg/dL Creatinine 3.1 H (0.8-1.3) mg/dL Est Cr Clr Drug Dosing 21.91 mL/min Estimated GFR (MDRD) 19.8 ml/min Glucose 123 H (74-106) mg/dL Calcium 9.3 (8.5-10.1) mg/dL Total Bilirubin 0.9 (0.2-1.0) mg/dL AST 21 (15-37) IU/L ALT 27 (14-63) IU/L Alkaline Phosphatase 282 H (46-116) U/L Total Protein 7.0 (6.4-8.2) g/dL Albumin 3.1 L (3.4-5.0) g/dL Globulin 3.9 (2.6-4.0) g/dL Albumin/Globulin Ratio 0.8 L (0.9-1.6) Departure - Departure Time of Disposition: 12:46 Disposition: Home, Self-Care 01 Condition: Good Clinical Impression: Osteomyelitis of toe of left foot, Cellulitis of great toe, left - Discharge Information Referrals: PCP,Unknown [Primary Care Provider] - Forms: ED Department Discharge Additional Instructions: The following information is given to patients seen in the emergency department who are being discharged to home. This information is to outline your options for follow-up care. We provide all patients seen in our emergency department with a follow-up referral. The need for follow-up, as well as the timing and circumstances, are variable depending upon the specifics of your emergency department visit. If you don't have a primary care physician on staff, we will provide you with a referral. We always advise you to contact your personal physician following an emergency department visit to inform them of the circumstance of the visit and for follow-up with them and/or the need for any referrals to a consulting specialist. The emergency department will also refer you to a specialist when appropriate. This referral assures that you have the opportunity for follow-up care with a specialist. All of these measure are taken in an effort to provide you with optimal care, which includes your follow-up. Under all circumstances we always encourage you to contact your private physician who remains a resource for coordinating your care. When calling for follow-up care, please make the office aware that this follow-up is from your recent emergency room visit. If for any reason you are refused follow-up, please contact the [facility] Emergency Department at and asked to speak to the emergency department charge nurse. - My Orders Last 24 Hours: My Active Orders 07/27/18 12:36 Piperacillin/Tazobactam [Piperacil-Tazobact] 3.375 gm Sodium Chloride 0.9% [ Normal Saline] 50 ml IV ONETIME Vancomycin [Vancocin] 1 gm Sodium Chloride 0.9% [Normal Saline] 250 ml IV ONETIME - Assessment/Plan Last 24 Hours: My Active Orders 07/27/18 12:36 Piperacillin/Tazobactam [Piperacil-Tazobact] 3.375 gm Sodium Chloride 0.9% [ Normal Saline] 50 ml IV ONETIME Vancomycin [Vancocin] 1 gm Sodium Chloride 0.9% [Normal Saline] 250 ml IV ONETIME
--- NOTE | 2018-07-27 12:11 | CR ---
HISTORY: Pain, swelling and drainage. FINDINGS: Three views of the left great toe are provided. Diffuse soft tissue swelling is noted with diffuse vascular calcification. There is progressive irregular lucency throughout the central and proximal portions of the distal phalanx. Findings are consistent with osteomyelitis. No soft tissue gas or foreign body is noted. IMPRESSION: Evidence for likely cellulitis as well as osteomyelitis of the distal phalanx. There is progressive bony destruction of the central and proximal portions of the distal phalanx. Dictated by Tyler Murcia MD @ Jul 27 2018 12:08PM Signed by Dr. Tyler Murcia @ Jul 27 2018 12:10PM
[2018-07-27] MEDS ORDERED: Piperacillin/Tazobactam 3.375 GM in Sodium Chloride 0.9% 50 ML IV ONE (12:36)
[2018-07-27 14:39] VITALS: BP 145/96
== END 2018-07-27 14:45 | disposition home or self-care (01) ==
LOC: MW.ED 10:53
DX: E11.69 Type 2 diabetes mellitus with other specified complication (principal); M86.9 Osteomyelitis, unspecified; L03.032 Cellulitis of left toe; E11.22 Type 2 diabetes mellitus with diabetic chronic kidney disease; I13.0 Hypertensive heart and chronic kidney disease with heart failure and stage 1 through stage 4 chronic kidney disease, or unspecified chronic kidney disease; N18.9 Chronic kidney disease, unspecified; I50.9 Heart failure, unspecified; E78.00 Pure hypercholesterolemia, unspecified; Z79.4 Long term (current) use of insulin; Z79.899 Other long term (current) drug therapy; Z91.018 Allergy to other foods; Z88.8 Allergy status to other drugs, medicaments and biological substances; I48.91 Unspecified atrial fibrillation; Z79.01 Long term (current) use of anticoagulants; Z86.73 Personal history of transient ischemic attack (TIA), and cerebral infarction without residual deficits
CPT/HCPCS: 36415; 73660; 80053; 85025; 85610; 87040; 96365; 96367; 99284; J2543; J3370; J7050